=== PATIENT | female | born 1940 | race Caucasian/White ===

== ENCOUNTER 2020-09-11 13:23 | Emergency (ER) | payer MEDICARE, SELFPAY ==
[2020-09-11] VITALS (7 sets, daily range): BP systolic 128–175; BP diastolic 74–97; PULSE 95–112; RESP 20–26; TEMP 37.3–37.8; O2SAT 92–95; BMI 33.4
--- NOTE | 2020-09-11 14:04 | XR_ITS ---
WS: [id number] Portable AP upright chest, 09/11/2020 Clinical Data: covid Comparison: None. Findings: No nodules, masses or effusions are seen. The heart is enlarged. The pulmonary vascularity is not increased. No pneumothorax is seen. There is minimal bilateral lower lobe patchy peripheral op acity. XR/XR chest 1V portable [id number] Impression: 1. Bilateral lower lobe patchy opacities which could represent pneumonia. 2. Cardiomegaly.
[2020-09-11 14:31] LABS: Hematocrit 43.6 % (37.0-47.0); Hemoglobin 14.6 g/dL (11.5-15.3); Lymphocytes # 1.2 10^3/uL (0.8-4.8); Lymphocytes % 33.1 %; Mean Corpuscular HGB Conc 33.5 g/dL (30.0-36.0); Mean Corpuscular Hemoglobin 30.7 pg (28.0-34.0); Mean Corpuscular Volume 91.8 fL (81-99); Mean Platelet Volume 10.6 fL (7.4-10.4); Monocytes # 0.3 10^3/uL (0.2-0.9); Monocytes % 8.1 %; Neutrophils # 2.09 10^3/uL (1.8-7.7); Neutrophils % 58.2 %; Nucleated Red Blood Cells % 0 %; Platelet Count 92 10^3/cmm (130-400); Red Blood Count 4.75 10^6/uL (4.1-5.3); Red Cell Distribution Width 11.9 % (12.1-15.1); White Blood Count 3.6 10^3/uL (4.0-10.0)
[2020-09-11 14:44] LABS: Fibrinogen 413 mg/dL (174-498)
[2020-09-11 14:47] LABS: D Dimer 1.08 ug/mIFEU (0-0.59)
[2020-09-11 14:49] LABS: Lactic Sepsis W/Reflex 1.1 mmol/L (0.5-2.2)
[2020-09-11 15:07] LABS: SARS Covid-2 Antigen Positive (Negative)
[2020-09-11 15:15] LABS: Alanine Aminotransferase 18 U/L (0-33); Albumin Level 3.2 g/dL (3.5-5.2); Alkaline Phosphatase 48 IU/L (35-105); Anion Gap 16.8 (5-19); Aspartate Amino Transferase 28 U/L (0-32); Blood Urea Nitrogen 12 mg/dL (8-23); C Reactive Protein 23.2 mg/L (0.0-4.9); Calcium 7.7 mg/dL (8.5-10.5); Carbon Dioxide 20 mmol/L (22-29); Chloride 100 mmol/L (98-107); Globulin 2.7 g/dL (1.3-4.6); Glucose 100 mg/dL (65-115); Lactate Dehydrogenase 329 U/L (135-214); Osmolality Calculated 276 mOsm/kg (285-295); Potassium 3.8 mmol/L (3.5-5.1); Sodium 133 mmol/L (136-145); Total Bilirubin 0.7 mg/dL (0.15-1.2); Total Protein 5.9 g/dL (6.6-8.7)
[2020-09-11 15:20] LABS: Procalcitonin 0.05 ng/mL (0-0.5)
[2020-09-11 15:35] LABS: Ferritin 1074 ng/mL (15-150)
--- NOTE | 2020-09-11 15:42 | CTR_ITS ---
PROCEDURE INFORMATION: Exam: CTA Chest With Contrast Exam date and time: 09/11/2020 3:42 PM Age: 79 years old Clinical indication: Fever; Additional info: Covid +, elevated d-dimer TECHNIQUE: Imaging protocol: Computed tomographic angiography of the chest with contrast. 3D rendering (Not supervised by radiologist): MIP and/or 3D reconstructed images were created by the technologist. Radiation optimization: All CT scans at this facility use at least one of these dose optimization techniques: automated exposure control; mA and/or kV adjustment per patient size (includes targeted exams where dose is matched to clinical indication); or iterative reconstruction. Contrast material: OMNI 350; Contrast volume: 72 ml; Contrast route: INTRAVENOUS (IV); COMPARISON: CR XR chest 1V portable [id number] 09/11/2020 2:15 PM RADIATION DOSE METRICS: Total DLP (mGy-cm): 471.07 FINDINGS: Pulmonary arteries: Normal. No pulmonary emboli. Limited evaluation subsegmental branches due to respiratory motion artifact. Aorta: Unremarkable. No aortic aneurysm. No aortic dissection. Lungs: Peripheral ground-glass opacities throughout the lungs. Pleural spaces: Unremarkable. No pneumothorax. No pleural effusion. Heart: Mild cardiomegaly. Lymph nodes: Unremarkable. No enlarged lymph nodes. Bones/joints: Unremarkable. No acute fracture. Soft tissues: Unremarkable. CT/CT angio chest PE protcl [id number] IMPRESSION: 1. No evidence of pulmonary embolism. Limited evaluation of the subsegmental branches due to respiratory motion artifact. 2. Peripheral ground-glass opacities throughout the lungs consistent with COVID pneumonia. Radiation Dose CTDIVOL = (mGy): DLP = 471.07 (mGy-cm)
[2020-09-11] MEDS: iohexol 350 mg/mL 100 mL Btl IV (16:26)
--- NOTE | 2020-09-11 16:31 | W.ED.COVID ---
HPI - COVID General: Chief Complaint: COVID symptoms Stated Complaint: WEAKNESS/ FATIGUE/ FEVER/ COVID EXPOSURE Time Seen by Provider: 09/11/20 13:32 Source: patient and RN notes reviewed Mode of arrival: EMS Limitations: no limitations Triage information: Has fever, cough or shortness of breath. Exposure to COVID + person last 14 days History of Present Illness: HPI Narrative: Patient is a 79-year-old female who was exposed to COVID-19 and developed symptoms about 8 days ago. Symptoms include nausea, cough, diarrhea. She denies any fever but was febrile in the emergency department. She denies any shortness of breath. She feels very weak and has a very poor appetite. Because of the weakness and poor appetite she came to the emergency department to be evaluated. MD complaint: reported COVID exposure and has COVID symptoms Prior covid testing: no COVID 19 common symptoms: positive cough, body aches, loss of sense of smell and/or taste and diarrhea; negative fever(s), chills, productive cough, dyspnea, fatigue, headache(s), throat pain, nasal congestion, nausea or vomiting COVID 19 other sytmptoms: negative chest pain, pleuritic pain, requiring oxygen, requiring more oxygen, respiratory distress, cyanosis, lethargy, confusion, new neurological complaints or other concerning symptoms Onset (ago): day(s) (8) Severity: moderate Treatment prior to arrival: none COVID Results: SARS-CoV-2 Antigen (Rapid) Positive (Negative) H 09/11/20 14:45 09/11/20 Nasal/Oral Coronavirus 2019 PCR Pending 09/11/20 14:45 09/11/20 Review of Systems General: Reports: 10 or more systems reviewed and unremarkable except in HPI and below Const: Reports: body aches; Denies: fever(s), chills or fatigue ENMT: Denies: throat pain or nasal congestion Card: Denies: chest pain Resp: Denies: dyspnea or productive cough GI: Reports: diarrhea; Denies: nausea or vomiting Neuro: Denies: headache(s) or confusion Physical Exam Const: COMMON NORMALS: no acute distress, average body habitus, patient oriented x3, no limitations, healthy appearing, alert and well nourished HENMT: COMMON NORMALS: normocephalic, atraumatic and moist oral mucous membranes HEAD & SCALP: normocephalic and atraumatic Neck/C-Spine: COMMON NORMALS: no meningeal signs and no JVD Resp: COMMON NORMALS: normal respiratory effort, No retractions, No use of accessory muscles, clear to auscultation bilaterally and percussion normal AUSCULTATION: clear to auscultation bilaterally PERCUSSION: percussion normal Cardio: COMMON NORMALS: no JVD, regular rate, regular rhythm, S1 normal heart sound present, S2 normal heart sound present, No gallops present (Cardio), No clicks present (Cardio), No murmurs present (Cardio), No rub (Cardio) and Peripheral pulses 2+ throughout RATE: regular rate RHYTHM: regular rhythm HEART SOUNDS: S1 normal heart sound present and S2 normal heart sound present PERIPHERAL PULSES: Peripheral pulses 2+ throughout GI: COMMON NORMALS: Normal to inspection, nondistended, normoactive bowel sounds present, Soft to palpation, non-tender, No hepatosplenomegaly present, no masses and no bruits PALPATION: Yes Soft to palpation and Yes No hepatosplenomegaly present Extremity: COMMON NORMALS: normal to inspection, full ROM, capillary refill normal, no calf tenderness and no pedal edema Neuro: COMMON NORMALS: patient oriented x3 SENSORIUM/ORIENTATION: Yes alert MENINGEAL SIGNS: Yes no meningeal signs Skin: COMMON NORMALS: no rashes or lesions noted, no wounds, turgor normal, no jaundice, no petechiae and no mottling GENERAL SKIN EXAM: no rashes or lesions noted and turgor normal Course Vital Signs: Vital signs: Vital Signs Temperature 99.1 F 09/11/20 18:10 Pulse Rate 97 09/11/20 18:55 Respiratory Rate 22 H 09/11/20 18:55 Blood Pressure 175/91 09/11/20 18:55 Pulse Oximetry 92 09/11/20 18:55 MDM - COVID MDM Narrative: Medical decision making narrative: 79-year-old female patient who had a Covid exposure. She has been feeling unwell for about 8 days and so presented to the emergency department to be evaluated. Work-up in the emergency department shows that she was initially tachycardic on arrival and had a low-grade fever. She tested positive for COVID-19 in the emergency department today. She meets criteria for monoclonal antibodies as she was not requiring oxygen and she is 79 years old. She has been given monoclonal antibody infusion and discharged home with a pulse oximeter. She is to follow-up with her primary care provider. Lab Data: Labs: Lab Results 09/11/20 09/11/20 09/11/20 Range/Units 14:23 14:23 14:23 WBC 3.6 L (4.0-10.0) 10^3/ uL RBC 4.75 (4.1-5.3) 10^6/u L Hgb 14.6 (11.5-15.3) g/dL Hct 43.6 (37.0-47.0) % MCV 91.8 (81-99) fL MCH 30.7 (28.0-34.0) pg MCHC 33.5 (30.0-36.0) g/dL RDW 11.9 L (12.1-15.1) % Plt Count 92 L (130-400) 10^3/c mm MPV 10.6 H (7.4-10.4) fL Neut % (Auto) 58.2 % Lymph % (Auto) 33.1 % [place] % (Auto) 8.1 % Eos % (Auto) 0.0 % Baso % (Auto) 0.0 % Neut # (Auto) 2.09 (1.8-7.7) 10^3/u L Lymph # (Auto) 1.2 (0.8-4.8) 10^3/u L [place] # (Auto) 0.3 (0.2-0.9) 10^3/u L Eos # (Auto) 0.0 (0.0-0.8) 10^3/u L Baso # (Auto) 0.0 (0.0-0.1) 10^3/u L Nucleated RBC % (a uto) 0 % Nucleated RBCs # 0.0 /100WBC Fibrinogen 413 (174-498) mg/dL D-Dimer 1.08 H (0-0.59) ug/mIFE U Sodium 133 L (136-145) mmol/L Potassium 3.8 (3.5-5.1) mmol/L Chloride 100 (98-107) mmol/L Carbon Dioxide 20 L (22-29) mmol/L Anion Gap 16.8 (5-19) BUN 12 (8-23) mg/dL Creatinine 0.5 (0.5-0.9) mg/dL GFR Calculation Not Reportable Glucose 100 (65-115) mg/dL Calculated Osmolal ity 276 L (285-295) mOsm/k g Lactic Acid (0.5-2.2) mmol/L Calcium 7.7 L (8.5-10.5) mg/dL Ferritin 1074 H (15-150) ng/mL Total Bilirubin 0.7 (0.15-1.2) mg/dL AST 28 (0-32) U/L ALT 18 (0-33) U/L Alkaline Phosphata se 48 (35-105) IU/L Lactate Dehydrogen ase 329 H (135-214) U/L C-Reactive Protein 23.2 H (0.0-4.9) mg/L Total Protein 5.9 L (6.6-8.7) g/dL Albumin 3.2 L (3.5-5.2) g/dL Globulin 2.7 (1.3-4.6) g/dL Procalcitonin 0.05 (0-0.5) ng/mL SARS-CoV-2 Ag (Rap id) (Negative) 09/11/20 09/11/20 Range/Units 14:23 14:45 WBC (4.0-10.0) 10^3/ uL RBC (4.1-5.3) 10^6/u L Hgb (11.5-15.3) g/dL Hct (37.0-47.0) % MCV (81-99) fL MCH (28.0-34.0) pg MCHC (30.0-36.0) g/dL RDW (12.1-15.1) % Plt Count (130-400) 10^3/c mm MPV (7.4-10.4) fL Neut % (Auto) % Lymph % (Auto) % [place] % (Auto) % Eos % (Auto) % Baso % (Auto) % Neut # (Auto) (1.8-7.7) 10^3/u L Lymph # (Auto) (0.8-4.8) 10^3/u L [place] # (Auto) (0.2-0.9) 10^3/u L Eos # (Auto) (0.0-0.8) 10^3/u L Baso # (Auto) (0.0-0.1) 10^3/u L Nucleated RBC % (a uto) % Nucleated RBCs # /100WBC Fibrinogen (174-498) mg/dL D-Dimer (0-0.59) ug/mIFE U Sodium (136-145) mmol/L Potassium (3.5-5.1) mmol/L Chloride (98-107) mmol/L Carbon Dioxide (22-29) mmol/L Anion Gap (5-19) BUN (8-23) mg/dL Creatinine (0.5-0.9) mg/dL GFR Calculation Glucose (65-115) mg/dL Calculated Osmolal ity (285-295) mOsm/k g Lactic Acid 1.1 (0.5-2.2) mmol/L Calcium (8.5-10.5) mg/dL Ferritin (15-150) ng/mL Total Bilirubin (0.15-1.2) mg/dL AST (0-32) U/L ALT (0-33) U/L Alkaline Phosphata se (35-105) IU/L Lactate Dehydrogen ase (135-214) U/L C-Reactive Protein (0.0-4.9) mg/L Total Protein (6.6-8.7) g/dL Albumin (3.5-5.2) g/dL Globulin (1.3-4.6) g/dL Procalcitonin (0-0.5) ng/mL SARS-CoV-2 Ag (Rap id) Positive H (Negative) Imaging Data: CTA Chest: Attestation: I personally reviewed and interpreted this imaging study as follows: Radiologist's impression: [address] [id number] Scan ReportSigned Patient: Amari Rodriguez #: [id number]: 2Acct#:[id number]/Sex: 79 / FADM Date: 09/11/20Loc: ERRoom/Bed:Attending Dr: Ordering Provider/Ordering MD: Ximena Queen MD, [facility] [place] Date of Service: 09/11/20 Procedure(s): CT angio chest PE protcl [id number] Accession Number(s): [id number] Report Number: [id number] PROCEDURE INFORMATION: Exam: CTA Chest With Contrast Exam date and time: 09/11/2020 3:42 PM Age: 79 years old Clinical indication: Fever; Additional info: Covid +, elevated d-dimer TECHNIQUE: Imaging protocol: Computed tomographic angiography of the chest with contrast. 3D rendering (Not supervised by radiologist): MIP and/or 3D reconstructed images were created by the technologist. Radiation optimization: All CT scans at this facility use at least one of these dose optimization techniques: automated exposure control; mA and/or kV adjustment per patient size (includes targeted exams where dose is matched to clinical indication); or iterative reconstruction. Contrast material: OMNI 350; Contrast volume: 72 ml; Contrast route: INTRAVENOUS (IV); COMPARISON: CR XR chest 1V portable [id number] 09/11/2020 2:15 PM RADIATION DOSE METRICS: Total DLP (mGy-cm): 471.07 FINDINGS: Pulmonary arteries: Normal. No pulmonary emboli. Limited evaluation subsegmental branches due to respiratory motion artifact. Aorta: Unremarkable. No aortic aneurysm. No aortic dissection. Lungs: Peripheral ground-glass opacities throughout the lungs. Pleural spaces: Unremarkable. No pneumothorax. No pleural effusion. Heart: Mild cardiomegaly. Lymph nodes: Unremarkable. No enlarged lymph nodes. Bones/joints: Unremarkable. No acute fracture. Soft tissues: Unremarkable. CT/CT angio chest PE protcl [id number] IMPRESSION: 1. No evidence of pulmonary embolism. Limited evaluation of the subsegmental branches due to respiratory motion artifact. 2. Peripheral ground-glass opacities throughout the lungs consistent with COVID pneumonia. Radiation Dose CTDIVOL = (mGy): DLP = 471.07 (mGy-cm) Dictated By:Jun Rosalse DOSigned By:Jun Rosales DOSigned Date/Time:09/11/201646DD/ 44 CXR: Attestation: I personally reviewed and interpreted this imaging study as follows: Radiologist's impression: [address] [id number] ReportSigned Patient: Amari Rodriguez #: [id number]: 1941cct#:[id number]/Sex: 79 / FADM Date: 09/11/20Loc: ERRoom/Bed:Attending Dr: Ordering Provider/Ordering MD: Ximena Queen MD, [facility] [place] Date of Service: 09/11/20 Procedure(s): XR chest 1V portable [id number] Accession Number(s): [id number] Report Number: [id number] WS: [id number] Portable AP upright chest, 09/11/2020 Clinical Data: covid Comparison: None. Findings: No nodules, masses or effusions are seen. The heart is enlarged. The pulmonary vascularity is not increased. No pneumothorax is seen. There is minimal bilateral lower lobe patchy peripheral opacity. XR/XR chest 1V portable [id number] Impression: 1. Bilateral lower lobe patchy opacities which could represent pneumonia. 2. Cardiomegaly. Dictated By:Suzette Matos MDSigned By:Suzette Matos MDSigned Date/Time:09/11/207DD/ 1436 COVID Results: SARS-CoV-2 Antigen (Rapid) Positive (Negative) H 09/11/20 14:45 09/11/20 Nasal/Oral Coronavirus 2019 PCR Pending 09/11/20 14:45 09/11/20 Monoclonal Antibody Treatments Inclusion/Exclusion Criteria weight >/= 40 kg and + direct Sars-Cov-2 test less than 7-10 days ago age >/= 65 not requiring hospitalization, not requiring oxygen (if not chronically on oxygen) and no increase oxygen requirement (if chronically on oxygen) Patient education patient/family/caregiver received/reviewed fact sheet, Emergency Use Authorization/unapproved drug status discussed with patient/family/caregiver, alternatives to this treatment discussed with patient/family/caregiver, risks and benefits of medication reviewed with patient/family/caregiver, patient/family/caregiver given opportunity for questions, which were answered and patient consents to receiving Monoclonal Antibody Treatment Plan for treatment Meets criteria for Monoclonal Antibody infusion Ordering Monoclonal Antibody infusion for today Discharge Plan Discharge Patient Disposition: Home Clinical Impression: Pneumonia due to 2019 novel coronavirus Condition: Stable Prescriptions: No Action No Known Home Medications RF: 0 Discharge Orders: Discharge ED (Routine); Ordered 09/11/20 Ordered By: Ximena Queen Referrals: Dilip Dailey [Primary Care Provider] - 1-3 days Discharge Diet: Usual diet Discharge Activity: Increase activity as tolerated Patient Instructions: Viral Pneumonia (ED) Activity Restrictions/Additional Instructions: Return for any new or worsening symptoms. Follow-up with your primary care provider via telemedicine within 3 days. You need to self isolate for at least 10 days from symptom onset and at least 24 hours fever free. Check your oxygen levels with the pulse oximeter that was sent home with you, if your oxygen levels fall below 90% and stay below 90% please return for evaluation. You were given the monoclonal antibody infusion called Regeneron. This is to help prevent you from getting sick enough to be admitted to the hospital. Coding Level of Care Code ED Arc Welding Machine Operator for Graham Gutierres Exam Comprehensive
[2020-09-11] MEDS: sodium chloride 0.9% 1,000 ML 999 ML IV (17:06)
[2020-09-11] MEDS: ondansetron 2 mg/ML SDV 2 mL 4 MG IVP (17:06)
[2020-09-12 14:42] LABS: Coronavirus Test Green County Detected
--- NOTE | 2020-09-17 14:02 | DCPLANNER ---
assistant store manager trainee had message that patient received the monoclonal antibody infusion. assistant store manager trainee called to check on patient after receiving the infusion. assistant store manager trainee was unable to speak with patient at this time, a voicemail was left for patient to return rn case manager phone call.
== END 2020-09-11 18:55 | disposition home or self-care (01) ==
PROVIDERS: Emergency Provider Family Medicine; PCP Family Medicine
DX: U07.1 COVID-19 (principal); J12.82 Pneumonia due to coronavirus disease 2019
CPT/HCPCS: 36415; 71045; 71275; 80053; 82728; 83605; 83615; 84145; 85025; 85378; 85384; 86140; 87426; 87635; 96365; 96375; 99284; J2405; J7030; Q9967

== ENCOUNTER 2021-11-17 08:50 | Observation (INO) | payer MEDICARE, SELFPAY ==
[2021-11-17] VITALS (12 sets, daily range): BP systolic 148–233; BP diastolic 71–112; PULSE 75–105; RESP 15–18; TEMP 36.4–37; O2SAT 93–98; BMI 37.6
--- NOTE | 2021-11-17 09:02 | CT_ITS ---
WS: [id number] CT ANGIOGRAM CEREBRAL AND CAROTID ARTERIES HISTORY: TIA TECHNIQUE: CT angiogram is performed of the carotid and cerebral arteries. During arterial injection imaging is obtained from the skull vertex to the aortic arch in 1.25 mm imaging. Coronal and sagittal reformats are submitted. Additional multi planar reformats of the carotid and cerebral arteries are submitted, MIP imaging also reviewed. NASCET criteria utilized. [email or web address] at least one of these dose optimization techniques: automated exposure control; mA and/or kV adjust ment per patient size (includes targeted exams where dose is matched to clinical indication); or iter ative reconstruction. CONTRAST: Omnipaque 350; 95 mL IV. DLP: 943.54 mGy.cm COMPARISON: CT earlier the same day. Repeat noncontrast CT head is performed. It is now apparent there is a large acute infarct involving the LEFT occipital lobe and the posterior medial LEFT temporal lobe. There is sulcal effacement and l oss of the lange-white. No hemorrhage. Carotid Angiogram: Right carotid: Common carotid artery: Arises normally from the innominate artery. No significant plaque or stenosis. Internal carotid artery: Small amount of calcified plaque with no obstruction. External carotid artery: Patent. Left carotid: Common carotid artery: Arises normally from the aorta. No significant plaque or stenosis. Internal carotid artery: Calcified plaque at the bifurcation. No stenosis. External carotid artery: Patent. Right vertebral artery: Unremarkable. Left vertebral artery: Patent with scattered calcified plaque. Subclavian arteries: No stenosis or significant abnormality. Upper thorax: Normal. Thyroid gland: Normal. Osseous structures: Mild cervical spondylosis. CEREBRAL ANGIOGRAM: Intracranial vertebral arteries: Small caliber but patent distal RIGHT vertebral artery. Plaque in th e distal LEFT vertebral artery. Basilar artery: No significant stenosis or occlusion. No aneurysm. Intracranial Internal carotid arteries: Scattered plaque and mild atherosclerotic disease. No occlusi on. Middle cerebral arteries: Normal. Anterior cerebral arteries and ACOM: Normal. Posterior cerebral arteries and PCOM's: No occlusions. Symmetric appearance of the posterior cerebral arteries. The LEFT posterior communicating artery is small caliber. Dural venous sinuses are normally enhancing. Mastoid air cells: Normal. Paranasal sinuses: Normal. Calvarium: Normal. CT/CT angio headneck* [id number] IMPRESSION: 1. 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 Infarct has become much more apparent since the study earlier e same day. No hemorrhage. 2. No occlusion or thrombus in the posterior cerebral artery. 3. Mild atherosclerosis within the cervical and intracranial carotid artery. Notified Tyson Salazar DO at 11/17/2021 12:30 PM.
--- NOTE | 2021-11-17 09:07 | ED_ITS ---
HPI - Neuro Symptoms/Deficit General: Chief Complaint: Neuro Symptoms/Deficit Stated Complaint: TIA LIKE SYMPTOMS Time Seen by Provider: 11/17/21 08:52 Source: patient Mode of arrival: EMS History of Present Illness: 81-year-old female presents emergency room via EMS. Patient lives at home EMS was called around 7:40 AM patient had right- sided numbness difficult time speaking. By the time EMS arrived she was symptom-free. She describes the same symptoms to me including some visual deficits to the right side all of these have resolved. She is completely awake and alert with an NIH score of 0 she is extremely hypertensive. She has no known history of coronary artery disease or previous CVA. Time: 08:50 Last Observed Normal: 07:40 Location: speech, right face, left arm and right arm History of same: No Severity: mild Quality: weak and numb Relieving factors: time Exacerbating factors: none Context: sudden onset Associated symptoms: Reports tingling; Deny no associated symptoms, chest pain, cough, diaphoresis, fevers/chills, headache(s), anorexia, malaise, nausea, seizures, short of breath, syncope, vertigo, vomiting or weakness Treatments Prior to Arrival: none Review of Systems Const: Denies: fever(s), chills, fatigue, malaise or diaphoresis ENMT: Denies: throat pain, ear or mastoid pain, nasal discharge or nasal congestion Card: Denies: chest pain or syncope Resp: Denies: dyspnea, productive cough or non-productive cough GI: Denies: abdominal pain, nausea, vomiting, hematemesis or coffee ground emesis : Denies: flank pain, difficulty voiding, dysuria, urinary frequency or urinary urgency Skin/Breast: Denies: rash or pruritus Neuro: Denies: headache(s) or vertigo PFS ED PFSH: Medical History Acne rosacea COVID-19 (08/2020) 0 Hypertension Seasonal allergies Urinary incontinence Surgical History History of appendectomy Family History Brother Stroke Sister Stroke Father Stroke CAD (coronary artery disease) Mother Stroke Diabetes Social History Smoking and tobacco status: former smoker Quit status (tobacco): has quit using tobacco Former quit date comment: 50 years ago, smoked less than a year Alcohol intake: never Substance/Drug Use: never Lives independently: Yes NIH stroke score NIHSS: Level Of Consciousness - 1a: 0 Level Of Consciousness Questions - 1b: Both Correct Level Of Consciousness Commands - 1c: Both Correct Best Gaze - 2: Normal Visual Dill - 3: No Visual Loss Facial Palsy - 4: Normal Motor Arm Right - 5: No Drift Motor Arm Left - 5: No Drift Motor Leg Right - 6: No Drift Motor Leg Left - 6: No Drift Limb Ataxia - 7: Absent Sensory - 8: Normal Best Language - 9: No Aphasia Dysarthia - 10: Normal Extinction And Inattention - 11: 0 Score: Total Score: 0 Physical Exam Const: GENERAL APPEARANCE: cooperative and comfortable ORIENTATION/CONSCIOUSNESS: Yes awake, Yes oriented to person, Yes oriented to place and Yes oriented to time HENMT: COMMON NORMALS: normocephalic, atraumatic and hearing grossly normal bilaterally HEAD & SCALP: normocephalic and atraumatic Eye: COMMON NORMALS: Equal, round and reactive pupils present, EOMs intact bilaterally, conjunctivae normal and no scleral icterus GENERAL EYE: appearance normal, both eyes and all related structures VISUAL DILL: No peripheral vision loss and No central vision loss CONJUNCTIVA: Yes conjunctivae normal PUPIL: Yes Equal, round and reactive pupils present Resp: COMMON NORMALS: normal respiratory effort, No retractions, No use of accessory muscles and clear to auscultation bilaterally AUSCULTATION: clear t o auscultation bilaterally Cardio: COMMON NORMALS: regular rate, regular rhythm and No murmurs present (Cardio) RATE: regular rate RHYTHM: regular rhythm GI: COMMON NORMALS: Soft to palpation and No hepatosplenomegaly present AUSCULTATION: Yes normoactive bowel sounds PALPATION: Yes Soft to palpation, No Tenderness to palpation present (GI), No Guarding due to palpation present (GI) and Yes No hepatosplenomegaly present Extremity: COMMON NORMALS: normal to inspection, capillary refill normal, no clubbing, cyanosis or edema, no calf tenderness and no pedal edema Neuro: SENSORIUM/ORIENTATION: Yes oriented to person, Yes oriented to place and Yes oriented to time Skin: COMMON NORMALS: no rashes or lesions noted GENERAL SKIN EXAM: no rashes or lesions noted Course Vital Signs: Vital signs: Vital Signs Temperature 97.9 F 11/18/21 04:50 Pulse Rate 100 11/18/21 04:50 Respiratory Rate 18 11/18/21 04:50 Blood Pressure 146/83 11/18/21 04:50 Pulse Oximetry 96 11/18/21 04:50 Oxygen Delivery Me thod 11/18/21 04:50 MDM - Neuro Symptoms/Deficit Medical Decision Making Initial head CT negative. There is a period of time over trying to get a IV established and waiting on a creatinine and then went back to do her CTA head and neck a repeat CT head without contrast was done which showed evolution of the stroke in the left parietal occipital region consistent with her symptoms. I reexamined her after receiving a call from Dr. Chaudhry she still has a stroke score of essentially 0. She told Dr. Daiz later that she was having some difficulty with word finding but this was very subtle and subjective. On ident ifying objects in conversation she had no difficulty with words. Will admit for further work-up. Not a candidate for intervention at this point Medical Records I reviewed the patient's medical records. Lab Data I reviewed the patient's lab results. : 11/17/21 10:30 11/17/21 10:30 Radiology Impressions Head/Neck CTA 11/17/21 09:02 IMPRESSION: 1. 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 Infarct has become much more apparent since the study earlier the same day. No hemorrhage. 2. No occlusion or thrombus in the posterior cerebral artery. 3. Mild atherosclerosis within the cervical and intracranial carotid artery. Notified Tyson Salazar DO at 11/17/2021 12:[address] 11/17/21 10:27 IMPRESSION: 1. No acute intracranial hemorrhage or edema. 2. Mild atrophy and small vessel ischemic disease. Laboratory Results WBC 7.8 10^3/uL (4.0-10.0) 11/17/21 10:30 RBC 4.69 10^6/uL (4.1-5.3) 11/17/21 10:30 Hgb 14.6 g/dL (11.5-15.3) 11/17/21 10:30 Hct 44.8 % (37.0-47.0) 11/17/21 10:30 MCV 95.5 fl (81-99) 11/17/21 10:30 MCH 31.1 pg (28.0-34.0) 11/17/21 10:30 MCHC 32.6 g/dL (30.0-36.0) 11/17/21 10:30 RDW 12.6 % (12.1-15.1) 11/17/21 10:30 Plt Count 197 10^3/cmm (130-400) 11/17/21 10:30 MPV 10.5 fL (7.4-10.4) H 11/17/21 10:30 Neut % (Auto) 76.8 % 11/17/21 10:30 Lymph % (Auto) 17.2 % 11/17/21 10:30 [place] % (Auto) 5.0 % 11/17/21 10:30 Eos % (Auto) 0.6 % 11/17/21 10:30 Baso % (Auto) 0.0 % 11/17/21 10:30 Neut # (Auto) 6.00 10^3/uL (1.8-7.7) 11/17/21 10:30 Lymph # (Auto) 1.3 10^3/uL (0.8-4.8) 11/17/21 10:30 [place] # (Auto) 0.4 10^3/uL (0.2-0.9) 11/17/21 10:30 Eos # (Auto) 0.1 10^3/uL (0.0-0.8) 11/17/21 10:30 Baso # (Auto) 0.0 10^3/uL (0.0-0.1) 11/17/21 10:30 Nucleated RBC % (auto) 0 % 11/17/21 10:30 Nucleated RBCs # 0.0 /100WBC 11/17/21 10:30 PT 13.00 SECONDS (12.1-14.9) 11/17/21 10:30 INR 0.96 (0.8-1.2) 11/17/21 10:30 APTT 25.9 SECONDS (23.9-36.7) 11/17/21 10:30 Sodium 141 mmol/L (136-145) 11/17/21 10:30 Potassium 4.2 mmol/L (3.5-5.1) 11/17/21 10:30 Chloride 106 mmol/L (98-107) 11/17/21 10:30 Carbon Dioxide 25 mmol/L (22-29) 11/17/21 10:30 Anion Gap 14.2 (5-19) 11/17/21 10:30 BUN 13 mg/dL (8-23) 11/17/21 10:30 Creatinine 0.8 mg/dL (0.5-0.9) 11/17/21 10:30 GFR Calculation Not Reportable 11/17/21 10:30 Glucose 123 mg/dL (65-115) H 11/17/21 10:30 POC Glucose 112 mg/dL (70-110) H 11/17/21 10:22 Calculated Osmolality 293 mOsm/kg (285-295) 11/17/21 10:30 Calcium 9.0 mg/dL (8.5-10.5) 11/17/21 10:30 Total Bilirubin 1.0 mg/dL (0.15-1.2) 11/17/21 10:30 AST 18 U/L (0-32) 11/17/21 10:30 ALT 16 U/L (0-33) 11/17/21 10:30 Alkaline Phosphatase 80 U/L (35-105) 11/17/21 10:30 Total Protein 7.2 g/dL (6.6-8.7) 11/17/21 10:30 Albumin 4.2 g/dL (3.5-5.2) 11/17/21 10:30 Globulin 3.0 g/dL (1.3-4.6) 11/17/21 10:30 Urine Color Straw (Yellow) 11/17/21 13:55 Urine Appearance Clear (CLEAR) 11/17/21 13:55 Urine pH 5 (5-7) 11/17/21 13:55 Ur Specific Rogers 1.010 (1.005-1.030) 11/17/21 13:55 Urine Protein Neg (Negative) 11/17/21 13:55 Urine Glucose (UA) Norm (Normal) 11/17/21 13:55 Urine Ketones Negative (Negative) 11/17/21 13:55 Urine Blood 2+ (Negative) H 11/17/21 13:55 Urine Nitrate Negative (Negative) 11/17/21 13:55 Urine Bilirubin Neg (Negative) 11/17/21 13:55 Urine Urobilinogen Norm mg/dL (Negative) 11/17/21 13:55 Ur Leukocyte Esterase Negative (Negative) 11/17/21 13:55 Urine RBC 0-4 /hpf (0-2) H 11/17/21 13:55 Urine WBC 0-4 /hpf (0-5) H 11/17/21 13:55 Ur Squamous Epith Cells 15-25 /hpf (0-5) H 11/17/21 13:55 Amorphous Sediment Not Reportable 11/17/21 13:55 Urine Bacteria Trace /hpf (NONE) 11/17/21 13:55 Urine Opiates Screen Negative ng/mL (Negative) 11/17/21 13:55 Ur Barbiturates Screen Negative ng/mL (Negative) 11/17/21 13:55 Ur Phencyclidine Scrn Negative ng/mL (Negative) 11/17/21 13:55 Ur Amphetamines Screen Negative ng/mL (Negative) 11/17/21 13:55 U Benzodiazepines Scrn Negative ng/mL (Negative) 11/17/21 13:55 Urine Cocaine Screen Negative ng/mL (Negative) 11/17/21 13:55 U Marijuana (THC) Screen Negative ng/mL (Negative) 11/17/21 13:55 Discharge Plan Discharge Patient Disposition: Admitted As Inpatient Admit Provider: Julienne Guzman Clinical Impression: 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
--- NOTE | 2021-11-17 09:09 | ECG_ITS ---
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 Measurements Intervals [place] Rate: 73 P: 49 NC: 161 QRS: 26 QRSD: 94 T: 97 QT: 385 QTc: 425 Interpretive Statements SINUS RHYTHM NONSPECIFIC T-WAVE ABNORMALITY No previous ECG available for comparison Electronically Signed On 11-18-2021 0:07:18 CDT by Yimi Paz M.D. [id number]
--- NOTE | 2021-11-17 09:31 | PC.NURSE ---
Pt has clear bilateral breath sounds and non labored breathing. Pt skin is cool and dry. Pt is resting in bed with no c/o of pain. Call light within reach. Pt on continuous CM and spo2.
[2021-11-17 10:25] LABS: Glucose Point of Care 112 mg/dL (70-110)
[2021-11-17] MEDS: amlodipine 10 mg Tablet PO (10:26)
--- NOTE | 2021-11-17 10:27 | CT_ITS ---
WS: [id number] CT HEAD NONCONTRAST HISTORY: SYMPTOMS OF ACUTE STROKE TECHNIQUE: Contiguous axial imaging performed through the brain in 2.5 mm imaging. Bone and soft tiss ue windows. Sagittal and coronal reformats reviewed. All CT scans at [facility] use at least one of these dose optimization techniques: automated exposure control; mA and/or kV adjustment per pa tient size (includes targeted exams where dose is matched to clinical indication); or iterative recon struction. DLP: 998.78 mGy.cm COMPARISON: None available. No acute intracranial hemorrhage, midline shift or mass effect. Mild atrophy and ischemic disease. More focal area of decreased attenuation in the RIGHT anterior co olivier radiata. Ventricles: Normal size with no hydrocephalus. No inferior displacement of cerebellar tonsils. Paranasal sinuses: As visualized are clear. Mastoid air cells: Well pneumatized. Calvarium and scalp: Skull is intact with no soft tissue edema or swelling. CT/CT head wo con* [id number] IMPRESSION: 1. No acute intracranial hemorrhage or edema. 2. Mild atrophy and small vessel ischemic disease.
[2021-11-17] MEDS: labetalol 5 mg/mL SDV 20mL 10 MG IV (10:30)
[2021-11-17 10:39] LABS: Eosinophils # 0.1 10^3/uL (0.0-0.8); Eosinophils % 0.6 %; Hematocrit 44.8 % (37.0-47.0); Hemoglobin 14.6 g/dL (11.5-15.3); Lymphocytes # 1.3 10^3/uL (0.8-4.8); Lymphocytes % 17.2 %; Mean Corpuscular HGB Conc 32.6 g/dL (30.0-36.0); Mean Corpuscular Hemoglobin 31.1 pg (28.0-34.0); Mean Corpuscular Volume 95.5 fl (81-99); Mean Platelet Volume 10.5 fL (7.4-10.4); Monocytes # 0.4 10^3/uL (0.2-0.9); Neutrophils % 76.8 %; Nucleated Red Blood Cells % 0 %; Platelet Count 197 10^3/cmm (130-400); Red Blood Count 4.69 10^6/uL (4.1-5.3); Red Cell Distribution Width 12.6 % (12.1-15.1); White Blood Count 7.8 10^3/uL (4.0-10.0)
[2021-11-17 10:50] LABS: INR 0.96 (0.8-1.2); Partial Thromboplastin Time 25.9 SECONDS (23.9-36.7)
[2021-11-17 11:06] LABS: Alanine Aminotransferase 16 U/L (0-33); Albumin Level 4.2 g/dL (3.5-5.2); Alkaline Phosphatase 80 U/L (35-105); Anion Gap 14.2 (5-19); Aspartate Amino Transferase 18 U/L (0-32); Blood Urea Nitrogen 13 mg/dL (8-23); Carbon Dioxide 25 mmol/L (22-29); Chloride 106 mmol/L (98-107); Glucose 123 mg/dL (65-115); Osmolality Calculated 293 mOsm/kg (285-295); Potassium 4.2 mmol/L (3.5-5.1); Sodium 141 mmol/L (136-145); Total Protein 7.2 g/dL (6.6-8.7)
[2021-11-17] MEDS: iohexol 350 mg/mL 100 mL Btl IV (12:12)
--- NOTE | 2021-11-17 14:02 | PM.HP ---
Providers/Chief Complaint Admitting Physician: Julienne Guzman MD Primary Care Provider: Dr. Fraser Chief Complaint: TIA LIKE SYMPTOMS History of Present Illness Laura Rodriguez is a 81 year old female who presented to the emergency room with chief complaint of right-sided vision loss, right upper extremity numbness and some word finding difficulties. Symptoms were sudden in onset this morning. She initially awakened and felt like her normal self and then describes everything becoming haywire . The first thing that she noticed was her vision in her right eye was nonexistent . At the same time her right arm was numb and she was having difficulty using it the way she wanted to because of this. Denies weakness just it did not feel right. Right leg was normal. She attempted to call 911 and had difficulty using the phone. She was able to speak to the kapok machine operator but had trouble recalling some words that she knew she should know. EMS arrived 15 to 20 minutes later. By the time they came to her aid, her symptoms had begun to resolve. On arrival to the emergency room her symptoms had dissipated. Initial NIH score was 0. Initial CT of the head without contrast did not show any acute abnormalities. A subsequent CT of the head demonstrated acute left occipital and posterior medial temporal lobe infarction. CTA of the head neck did not show any occlusion or thrombus in the posterior cerebral artery. Mild atherosclerosis was noted within the cervical and intracranial carotid artery. Patient has no prior history of stroke. She does not smoke. She has strong family history of strokes and parents, brothers and sisters. She states that she has outlived all of them. She does have a longstanding history of elevated blood pressure typically in the 150s systolic but is never been on any medication for it. Blood pressures on arrival to the emergency room today 233/112. She received a dose of amlodipine and labetalol and current pressures are 160s over 80s. No known history of diabetes or hyperlipidemia. At the time of my evaluation patient's NIH stroke score remains 0 however she feels like she is having difficulty remembering names in a way that is not normal for her. She is being admitted for further evaluation, monitoring and treatment as indicated. Mrs. Rodriguez saw her primary care provider, Dr. Fraser last week for annual exam. At the time her blood pressure was 160 systolic which is higher for her than usual. A follow-up appointment was arranged for next Wednesday for recheck of her blood pressure. Only other acute issue was significant sinus symptoms. She has known seasonal allergies. Review of Systems Const: Denies: fever(s) or chills Eyes: Reports: change in vision (Transient vision loss right eye) ENMT: Reports: nasal congestion (Sinus drainage) Card: Reports: swelling of feet/ankles and other (Fitbit occasionally shows low heart rate during sleep); Denies: chest pain, irregular heart rhythm or lightheadedness Resp: Reports: other (Intermittent cough related to allergies ); Denies: dyspnea GI: Denies: nausea, vomiting, diarrhea, constipation or hematochezia : Reports: urinary incontinence (on oxybutinin) Musc: Denies: extremity pain or extremity swelling Skin/Breast: Reports: lesions (Rosacea) Neuro: Reports: numbness in extremities (right upper extremity, transiently), lack of coordination (right upper extremity transiently) and difficulty communicating thoughts (some word finding difficulty for recall of names, slower mentation); Denies: headache(s), weakness in extremities, difficulty walking (able to walk to bathroom in ED without assitance) or Slurred speech present Psych: Denies: anxiety or depression Magen/Lymph: Denies: easy bleeding All/Imm: Reports: seasonal rhinorrhea Medications/Allergies Home Medications Medication Instructions Recorded Confirmed Last Taken Type oxybutynin chloride 10 mg 10 mg PO BEDTIME 11/17/21 11/17/21 11/16/21 21:30 History tablet,extended release 24 hr Allergies Allergy/AdvReac Type Severity Reaction Status Date / Time No Known Allergies Allergy Unverified 11/17/21 14:15 PFSH Acute PFSH: Medical History (Updated 11/17/21 @ 15:08 by Julienne Guzman MD) Acne rosacea COVID-19 (08/2020) 0 Hypertension Seasonal allergies Urinary incontinence Surgical History (Updated 11/17/21 @ 14:12 by Julienne Guzman MD) History of appendectomy Family History (Updated 11/17/21 @ 14:16 by Julienne Guzman MD) Brother Stroke Sister Stroke Father Stroke CAD (coronary artery disease) Mother Stroke Diabetes Social History (Updated 11/17/21 @ 14:17 by Julienne Guzman MD) Smoking and tobacco status: former smoker Quit status (tobacco): has quit using tobacco Former quit date comment: 50 years ago, smoked less than a year Alcohol intake: never Substance/Drug Use: never Lives independently: Yes Vitals/I&O/Wt Last Vital Signs Temp 97.6 F 11/17/21 09:22 Pulse 75 11/17/21 09:22 Resp 18 11/17/21 09:22 BP 164/82 11/17/21 13:15 Pulse Ox 98 11/17/21 09:22 O2 Del Method 11/17/21 09:22 Weight last 48 hrs Weight 81.647 kg Physical Exam Narrative: Constitutional: Awake and alert, cooperative able to provide history HEENT: Normocephalic, atraumatic, pupils are equally reactive, extraocular movements are intact, no visual field deficits appreciated on repeat examination, tongue protrusion midline, uvula midline, moist mucous membranes, dental work noted Neck: Supple, no bruits Respiratory: Clear to auscultation bilaterally Cardiovascular: Regular rate and rhythm without any murmurs noted Abdomen: Soft, nontender, positive bowel sounds : Deferred Extremities: Trace ankle edema, no painful or swollen joints, no calf tenderness Skin: Erythema nasolabial area on face, skin is dry, no areas of bruising appreciated Neuro: Speech clear, does seem to struggle with name recall such as for her friend who has power of wash plant operator and her primary care provider but otherwise no dysarthria or dysphasia appreciated, no drift, strength 5 out of 5 x 4, left toe is equivocal, right toe is upgoing, other DTRs are equal, no abnormal movements Psych: Normal affect Data : 11/17/21 10:30 11/17/21 10:30 Other Labs: Radiology Impressions Head/Neck CTA 11/17/21 09:02 IMPRESSION: 1. 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 Infarct has become much more apparent since the study earlier the same day. No hemorrhage. 2. No occlusion or thrombus in the posterior cerebral artery. 3. Mild atherosclerosis within the cervical and intracranial carotid artery. Notified Tyson Salazar DO at 11/17/2021 12:[address] 11/17/21 10:27 IMPRESSION: 1. No acute intracranial hemorrhage or edema. 2. Mild atrophy and small vessel ischemic disease. Laboratory Results WBC 7.8 10^3/uL (4.0-10.0) 11/17/21 10:30 RBC 4.69 10^6/uL (4.1-5.3) 11/17/21 10:30 Hgb 14.6 g/dL (11.5-15.3) 11/17/21 10:30 Hct 44.8 % (37.0-47.0) 11/17/21 10:30 MCV 95.5 fl (81-99) 11/17/21 10:30 MCH 31.1 pg (28.0-34.0) 11/17/21 10:30 MCHC 32.6 g/dL (30.0-36.0) 11/17/21 10:30 RDW 12.6 % (12.1-15.1) 11/17/21 10:30 Plt Count 197 10^3/cmm (130-400) 11/17/21 10:30 MPV 10.5 fL (7.4-10.4) H 11/17/21 10:30 Neut % (Auto) 76.8 % 11/17/21 10:30 Lymph % (Auto) 17.2 % 11/17/21 10:30 [place] % (Auto) 5.0 % 11/17/21 10:30 Eos % (Auto) 0.6 % 11/17/21 10:30 Baso % (Auto) 0.0 % 11/17/21 10:30 Neut # (Auto) 6.00 10^3/uL (1.8-7.7) 11/17/21 10:30 Lymph # (Auto) 1.3 10^3/uL (0.8-4.8) 11/17/21 10:30 [place] # (Auto) 0.4 10^3/uL (0.2-0.9) 11/17/21 10:30 Eos # (Auto) 0.1 10^3/uL (0.0-0.8) 11/17/21 10:30 Baso # (Auto) 0.0 10^3/uL (0.0-0.1) 11/17/21 10:30 Nucleated RBC % (auto) 0 % 11/17/21 10:30 Nucleated RBCs # 0.0 /100WBC 11/17/21 10:30 PT 13.00 SECONDS (12.1-14.9) 11/17/21 10:30 INR 0.96 (0.8-1.2) 11/17/21 10:30 APTT 25.9 SECONDS (23.9-36.7) 11/17/21 10:30 Sodium 141 mmol/L (136-145) 11/17/21 10:30 Potassium 4.2 mmol/L (3.5-5.1) 11/17/21 10:30 Chloride 106 mmol/L (98-107) 11/17/21 10:30 Carbon Dioxide 25 mmol/L (22-29) 11/17/21 10:30 Anion Gap 14.2 (5-19) 11/17/21 10:30 BUN 13 mg/dL (8-23) 11/17/21 10:30 Creatinine 0.8 mg/dL (0.5-0.9) 11/17/21 10:30 GFR Calculation Not Reportable 11/17/21 10:30 Glucose 123 mg/dL (65-115) H 11/17/21 10:30 POC Glucose 112 mg/dL (70-110) H 11/17/21 10:22 Calculated Osmolality 293 mOsm/kg (285-295) 11/17/21 10:30 Calcium 9.0 mg/dL (8.5-10.5) 11/17/21 10:30 Total Bilirubin 1.0 mg/dL (0.15-1.2) 11/17/21 10:30 AST 18 U/L (0-32) 11/17/21 10:30 ALT 16 U/L (0-33) 11/17/21 10:30 Alkaline Phosphatase 80 U/L (35-105) 11/17/21 10:30 Total Protein 7.2 g/dL (6.6-8.7) 11/17/21 10:30 Albumin 4.2 g/dL (3.5-5.2) 11/17/21 10:30 Globulin 3.0 g/dL (1.3-4.6) 11/17/21 10:30 Urine Color Straw (Yellow) 11/17/21 13:55 Urine Appearance Clear (CLEAR) 11/17/21 13:55 Urine pH 5 (5-7) 11/17/21 13:55 Ur Specific [place] 1.010 (1.005-1.030) 11/17/21 13:55 Urine Protein Neg (Negative) 11/17/21 13:55 Urine Glucose (UA) Norm (Normal) 11/17/21 13:55 Urine Ketones Negative (Negative) 11/17/21 13:55 Urine Blood 2+ (Negative) H 11/17/21 13:55 Urine Nitrate Negative (Negative) 11/17/21 13:55 Urine Bilirubin Neg (Negative) 11/17/21 13:55 Urine Urobilinogen Norm mg/dL (Negative) 11/17/21 13:55 Ur Leukocyte Esterase Negative (Negative) 11/17/21 13:55 Urine RBC 0-4 /hpf (0-2) H 11/17/21 13:55 Urine WBC 0-4 /hpf (0-5) H 11/17/21 13:55 Ur Squamous Epith Cells 15-25 /hpf (0-5) H 11/17/21 13:55 Amorphous Sediment Not Reportable 11/17/21 13:55 Urine Bacteria Trace /hpf (NONE) 11/17/21 13:55 Urine Opiates Screen Negative ng/mL (Negative) 11/17/21 13:55 Ur Barbiturates Screen Negative ng/mL (Negative) 11/17/21 13:55 Ur Phencyclidine Scrn Negative ng/mL (Negative) 11/17/21 13:55 Ur Amphetamines Screen Negative ng/mL (Negative) 11/17/21 13:55 U Benzodiazepines Scrn Negative ng/mL (Negative) 11/17/21 13:55 Urine Cocaine Screen Negative ng/mL (Negative) 11/17/21 13:55 U Marijuana (THC) Screen Negative ng/mL (Negative) 11/17/21 13:55 Attestation for Other Data: I personally reviewed and interpreted the following: (Reviewed records from PCP visit last week) Other data: Laboratory data from patient's primary care provider dated 11/12/2021 shows the following: Hemoglobin A1c 5.4 Total cholesterol 182 HDL 59 Calculated LDL 104 Triglycerides 95 Cholesterol/HDL ratio 3.1 Total non-HDL cholesterol 123 TSH 1.30 A&P Assessment and plan (1) 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 NIH score at presentation to the ED and upon admission remained 0. Symptoms lasted approximately half an hour before resolving. Very strong family history of strokes in multiple first-degree relatives. CTA of the head demonstrated evolving acute stroke in the left CHARGER OPERATOR HELPER distribution involving left occipital and posterior medial temporal lobe without any occlusion or thrombus noted in the posterior cerebral artery. The posterior communicating artery was noted to be small in caliber. (2) Hypertension: Reports chronic blood pressure typically 150 systolic for many years off and on but has not required treatment previously. Pressures today significantly elevated in the setting of an acute stroke. Was seen by primary care provider last week and systolic pressures noted to be in the 160s. Plan had been for recheck of blood pressures next week. Qualifiers: Hypertension type: primary hypertension Qualified Code(s): I10 - Essential (primary) hypertension (3) Borderline hyperglycemia: Blood sugar 112-123 upon presentation without a history of diabetes (4) BMI 37.0-37.9, adult: (5) Urinary incontinence: Chronically on oxybutynin (6) Seasonal allergies: Currently with acute sinus symptoms Plan Observation admission Serial neuro exams with NIH score Telemetry monitoring for arrhythmias Check echocardiogram PT, OT and speech therapy evaluations Initiate statin therapy Initiate antiplatelet therapy Permissive hypertension currently but will need to address antihypertensive agent upon discharge to optimize blood pressure control to decrease recurrent stroke risk DVT prophylaxis Stroke education Had hemoglobin A1c and fasting lipid panel as well as TSH performed last week on November 12 by primary care provider so these have not been reordered, actual results have been scanned into the system and values from lab review documented above Holding oxybutynin currently secondary to degree of hypertension and presenting symptoms Flonase for allergy symptoms Supportive care otherwise Plans as described above reviewed with patient and she was given an opportunity to ask questions Currently anticipate discharge home with outpatient follow-up. Does not currently appear to need therapy but will monitor clinical course and therapy evaluations. Patient already has appointment with her primary care provider on November 26 for follow-up of elevated blood pressures at her annual visit last week. Allow natural (AND) as per discussion with patient Should Ms Rodriguez not be able to make her own decisions she does have a DURABLE POWER OF BIOMASS TECHNICIAN for healthcare her close friend Omar Denisha. Omar can be reached at [phone]. Attestations Medical Necessity Statement*: Currently anticipate a stay less than 2 midnights in a patient presenting with posterior circulation stroke symptoms that have essentially resolved but evidence of evolving stroke on imaging along with significant hypertension at presentation. Plans are as noted above. At significant risk of recurrent stroke with persistent symptoms leading to significant debility. 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 NIH stroke score NIHSS Level Of Consciousness - 1a: 0 Level Of Consciousness Questions - 1b: Both Correct Level Of Consciousness Commands - 1c: Both Correct Best Gaze - 2: Normal Visual Berg - 3: No Visual Loss Facial Palsy - 4: Normal Motor Arm Right - 5: No Drift Motor Arm Left - 5: No Drift Motor Leg Right - 6: No Drift Motor Leg Left - 6: No Drift Limb Ataxia - 7: Absent Sensory - 8: Normal Best Language - 9: No Aphasia Dysarthia - 10: Normal Extinction And Inattention - 11: 0 Score Total Score: 0
[2021-11-17 14:20] LABS: Urine Appearance Clear (CLEAR); Urine Color Straw (Yellow); pH Urine 5 (5-7)
[2021-11-17 14:21] LABS: Add Urine Culture? No; Add Urine Microscopic? YES; Bacteria Urine TRACE /hpf; Bilirubin Urine Neg (Negative); Blood Urine 2+ (Negative); Glucose Urine UA Norm (Normal); Ketones Urine Negative (Negative); Leukocyte Esterase Urine Negative (Negative); Nitrate Urine Negative (Negative); Protein Urine Neg (Negative); RBC Urine 0-4 /hpf (0-2); Squamous Epithelial Cell Urine 15-25 /hpf (0-5); Urobilinogen Urine Norm (Negative); WBC Urine 0-4 /hpf (0-5)
[2021-11-17 14:22] LABS: Amphetamines Screen Urine Negative (Negative); Barbiturates Screen Urine Negative (Negative); Benzodiazepines Screen Urine Negative (Negative); Cocaine Screen Urine Negative (Negative); Opiate Screen Urine Negative (Negative); PCP Screen Urine Negative (Negative); THC Screen Urine Negative (Negative)
--- NOTE | 2021-11-17 16:35 | USCV_ITS ---
Laura Rodriguez Age: 81 Gender: F : 1940 Exam Date: 11/17/2021 18:16 Ordering Phys: Julienne Guzman MD Technologist: VICK Exam Location: [facility] [place] Indication: Posterior CVA, RT vision loss, now resolved, RT hemiparesis BP: 153 / 71 HR: 109 Rhythm: Atrial fibrillation Technical Quality: Adequate MEASUREMENTS (Male / Female) Normal Values 2D ECHO LV Diastolic Diameter PLAX 3.6 cm 4.2 - 5.9 / 3.9 - 5.3 cm LV Systolic Diameter PLAX 2.5 cm IVS Diastolic Thickness 1.8 cm 0.6 - 1.0 / 0.6 - 0.9 cm IVS Systolic Thickness 2.4 cm LVPW Diastolic Thickness 1.3 cm 0.6 - 1.0 / 0.6 - 0.9 cm LVPW Systolic Thickness 1.6 cm LVOT Diameter 1.8 cm LV Ejection Fraction 2D Teich 62.1 % LV Ejection Fraction MOD 2C 71.6 % LV Ejection Fraction 2C AL 72.1 % LA Diameter 4.4 cm LA Width 4.2 cm LA Height 5.6 cm RA Width 3.1 cm RA Height 4.2 cm Aorta at Sinotubular Diameter 2.5 cm IVC Diameter 1.5 cm M-MODE Aortic Annulus Diameter 2.2 cm LA Ao Ratio MM 2.0 MV E Point Septal Separation 0.2 cm DOPPLER AV Peak Velocity 188.0 cm/s LVOT Peak Velocity 111.0 cm/s AV Area Cont Eq vti 1.6 cm squared AV Area Cont Eq pk 1.4 cm squared MV Area PHT 3.8 cm squared Mitral E to A Ratio 2.5 MV E' Velocity 69.4 cm/s Mitral E to MV E' Ratio 11.1 Mitral E to LV E' Lateral Ratio 10.1 Mitral E to LV E' Septal Ratio 12.5 TR Peak Velocity 238.2 cm/s TR Peak Gradient 22.7 mmHg Right Atrial Pressure 10.0 mmHg Pulmonary Artery Systolic Pressu 32.7 mmHg PV Peak Velocity 118.0 cm/s RV Acceleration Time 0.1 s RV Ejection Time 0.3 s RV AcT/ET 0.3 FINDINGS Left Ventricle Normal left ventricular size, systolic function and wall thickness, with no regional wall motion abnormalities. Left ventricular ejection fraction is estimated at 65 %. Rhythm precludes evaluation of diastolic function. Right Ventricle Normal right ventricular size and systolic function. Right ventricular systolic pressure 32.7 mmHg. Right Atrium Normal right atrial size. Left Atrium Mildly increased left atrial size. Mitral Valve Mild mitral annular calcification. Thickened mitral valve. No mitral valve stenosis. Trace to mild mitral valve regurgitation. Aortic Valve Structurally normal trileaflet aortic valve. No aortic valve stenosis. Mild aortic valve regurgitation. Tricuspid Valve Structurally normal tricuspid valve. No tricuspid valve stenosis. Trace to mild tricuspid valve regurgitation. Pulmonic Valve Structurally normal pulmonic valve. No pulmonary valve stenosis. Trace pulmonary valve regurgitation. Pericardium No pericardial effusion. Aorta Normal size aortic root and proximal ascending aorta. IVC Normal IVC dimension with >50% respiratory change of the inferior vena cava. CONCLUSIONS 1. Normal left ventricular size, systolic function and wall thickness, with no regional wall motion abnormalities. Left ventricular ejection fraction is estimated at 65 %. 2. Mild aortic valve regurgitation. 3. No prior similar studies to compare. Katie An MD (Electronically Signed) Final Date: 17 November 2021 20:48 S
[2021-11-17] MEDS: fluticasone nasal spray 16gm Btl 1 SPRAY NASAL (17:47)
[2021-11-17] MEDS: atorvastatin 40 mg Tablet 20 MG PO (21:04)
[2021-11-17] MEDS: acetaminophen 500 mg Tablet 650 MG PO (22:22)
[2021-11-18] VITALS (8 sets, daily range): BP systolic 128–164; BP diastolic 64–83; PULSE 78–106; RESP 16–18; TEMP 36.6–37; O2SAT 96–98
[2021-11-18] MEDS: enoxaparin 40 mg/0.4 mL Syringe SUBCUT (10:12)
[2021-11-18] MEDS: aspirin 81 mg EC Tablet PO (10:13)
--- NOTE | 2021-11-18 11:00 | PM.DCS ---
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: Status: Acute (2) Hypertension: Status: Chronic Qualifiers: Hypertension type: primary hypertension Qualified Code(s): I10 - Essential (primary) hypertension (3) Borderline hyperglycemia: Status: Acute (4) BMI 37.0-37.9, adult: Status: Chronic (5) Urinary incontinence: Status: Chronic (6) Seasonal allergies: Status: Chronic Reason for Visit Reason for Visit: TIA LIKE SYMPTOMS Hospital Course Hospital Course 81-year-old female who presented to the hospital with chief complaint of vision changes and numbness of right side, she was diagnosed with evolving stroke CTA head and neck showed acute left occipital and posterior medial temporal lobe infarct however no active clot was found she remained in sinus rhythm JERICHO profile negative, A1c not significantly high, she remained hemodynamically stable, afebrile, blood pressure is around 128/33 mmHg, she is doing well on room air, NIH 0 at the time of my evaluation she will go home on aspirin, Plavix 21-day regimen and then she will continue aspirin along with statins. I will discharge her on event monitor. Patient does not have typical cerebellar signs. Echo unremarkable. Please see H&P for further details Physical Exam Narrative: NIH 0 S1, S2 Negative cerebellar signs No active signs of stroke Awake and alert No visual field defect Awake and alert S1, S2 Doing well on room air Discharge Data Studies Completed and Pending Completed Studies During Hospitalization Category Date Time Status CT angio headneck* [id number] Stat Cat Scan 11/17/21 09:[address] head wo con* [id number] Stat Cat Scan 11/17/21 10:27 Completed CV. echo complete* [id number] Routine Ultrasound 11/17/21 16:35 Completed Pending at discharge Category Date Time Status JERICHO Profile Custom [[facility] JERICHO Profile] Routine Lab 11/18/21 08:12 Received PROTEIN C, ACTIVITY Routine Lab 11/18/21 08:12 Received PROTEIN S, ACTIVITY Routine Lab 11/18/21 08:12 Received Radiology Impressions Head/Neck CTA 11/17/21 09:02 IMPRESSION: 1. 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 Infarct has become much more apparent since the study earlier the same day. No hemorrhage. 2. No occlusion or thrombus in the posterior cerebral artery. 3. Mild atherosclerosis within the cervical and intracranial carotid artery. Notified Tyson Salazar DO at 11/17/2021 12:[address] 11/17/21 10:27 IMPRESSION: 1. No acute intracranial hemorrhage or edema. 2. Mild atrophy and small vessel ischemic disease. Laboratory Results WBC 7.8 10^3/uL (4.0-10.0) 11/17/21 10:30 RBC 4.69 10^6/uL (4.1-5.3) 11/17/21 10:30 Hgb 14.6 g/dL (11.5-15.3) 11/17/21 10:30 Hct 44.8 % (37.0-47.0) 11/17/21 10:30 MCV 95.5 fl (81-99) 11/17/21 10:30 MCH 31.1 pg (28.0-34.0) 11/17/21 10:30 MCHC 32.6 g/dL (30.0-36.0) 11/17/21 10:30 RDW 12.6 % (12.1-15.1) 11/17/21 10:30 Plt Count 197 10^3/cmm (130-400) 11/17/21 10:30 MPV 10.5 fL (7.4-10.4) H 11/17/21 10:30 Neut % (Auto) 76.8 % 11/17/21 10:30 Lymph % (Auto) 17.2 % 11/17/21 10:30 [place] % (Auto) 5.0 % 11/17/21 10:30 Eos % (Auto) 0.6 % 11/17/21 10:30 Baso % (Auto) 0.0 % 11/17/21 10:30 Neut # (Auto) 6.00 10^3/uL (1.8-7.7) 11/17/21 10:30 Lymph # (Auto) 1.3 10^3/uL (0.8-4.8) 11/17/21 10:30 [place] # (Auto) 0.4 10^3/uL (0.2-0.9) 11/17/21 10:30 Eos # (Auto) 0.1 10^3/uL (0.0-0.8) 11/17/21 10:30 Baso # (Auto) 0.0 10^3/uL (0.0-0.1) 11/17/21 10:30 Nucleated RBC % (auto) 0 % 11/17/21 10:30 Nucleated RBCs # 0.0 /100WBC 11/17/21 10:30 PT 13.00 SECONDS (12.1-14.9) 11/17/21 10:30 INR 0.96 (0.8-1.2) 11/17/21 10:30 APTT 25.9 SECONDS (23.9-36.7) 11/17/21 10:30 Sodium 141 mmol/L (136-145) 11/17/21 10:30 Potassium 4.2 mmol/L (3.5-5.1) 11/17/21 10:30 Chloride 106 mmol/L (98-107) 11/17/21 10:30 Carbon Dioxide 25 mmol/L (22-29) 11/17/21 10:30 Anion Gap 14.2 (5-19) 11/17/21 10:30 BUN 13 mg/dL (8-23) 11/17/21 10:30 Creatinine 0.8 mg/dL (0.5-0.9) 11/17/21 10:30 GFR Calculation Not Reportable 11/17/21 10:30 Glucose 123 mg/dL (65-115) H 11/17/21 10:30 POC Glucose 112 mg/dL (70-110) H 11/17/21 10:22 Calculated Osmolality 293 mOsm/kg (285-295) 11/17/21 10:30 Calcium 9.0 mg/dL (8.5-10.5) 11/17/21 10:30 Total Bilirubin 1.0 mg/dL (0.15-1.2) 11/17/21 10:30 AST 18 U/L (0-32) 11/17/21 10:30 ALT 16 U/L (0-33) 11/17/21 10:30 Alkaline Phosphatase 80 U/L (35-105) 11/17/21 10:30 Total Protein 7.2 g/dL (6.6-8.7) 11/17/21 10:30 Albumin 4.2 g/dL (3.5-5.2) 11/17/21 10:30 Globulin 3.0 g/dL (1.3-4.6) 11/17/21 10:30 Urine Color Straw (Yellow) 11/17/21 13:55 Urine Appearance Clear (CLEAR) 11/17/21 13:55 Urine pH 5 (5-7) 11/17/21 13:55 Ur Specific [place] 1.010 (1.005-1.030) 11/17/21 13:55 Urine Protein Neg (Negative) 11/17/21 13:55 Urine Glucose (UA) Norm (Normal) 11/17/21 13:55 Urine Ketones Negative (Negative) 11/17/21 13:55 Urine Blood 2+ (Negative) H 11/17/21 13:55 Urine Nitrate Negative (Negative) 11/17/21 13:55 Urine Bilirubin Neg (Negative) 11/17/21 13:55 Urine Urobilinogen Norm mg/dL (Negative) 11/17/21 13:55 Ur Leukocyte Esterase Negative (Negative) 11/17/21 13:55 Urine RBC 0-4 /hpf (0-2) H 11/17/21 13:55 Urine WBC 0-4 /hpf (0-5) H 11/17/21 13:55 Ur Squamous Epith Cells 15-25 /hpf (0-5) H 11/17/21 13:55 Amorphous Sediment Not Reportable 11/17/21 13:55 Urine Bacteria Trace /hpf (NONE) 11/17/21 13:55 Urine Opiates Screen Negative ng/mL (Negative) 11/17/21 13:55 Ur Barbiturates Screen Negative ng/mL (Negative) 11/17/21 13:55 Ur Phencyclidine Scrn Negative ng/mL (Negative) 11/17/21 13:55 Ur Amphetamines Screen Negative ng/mL (Negative) 11/17/21 13:55 U Benzodiazepines Scrn Negative ng/mL (Negative) 11/17/21 13:55 Urine Cocaine Screen Negative ng/mL (Negative) 11/17/21 13:55 U Marijuana (THC) Screen Negative ng/mL (Negative) 11/17/21 13:55 Vitals Last Vital Signs Temp 98.6 F 11/18/21 09:30 Pulse 100 11/18/21 09:30 Resp 16 11/18/21 09:30 BP 128/83 11/18/21 09:30 Pulse Ox 97 11/18/21 09:30 O2 Del Method 11/18/21 04:50 Discharge Plan Discharge Patient Disposition: Home Condition: Stable Prescriptions: New aspirin 81 mg Tablet,Delayed Release (Dr/Ec) 81 mg PO DAILY Qty: 90 3RF atorvastatin 40 mg Tablet 40 mg PO BEDTIME Qty: 90 3RF clopidogrel [Plavix] 75 mg tablet 75 mg PO DAILY Qty: 20 0RF Continued oxybutynin chloride 10 mg tablet extended release 24 hr 10 mg PO BEDTIME Discharge Orders: Discharge Order (Routine); Ordered 11/18/21 Ordered By: Silvina Hernandes Other Ambulatory Orders: MCT/Event Monitor 21 Days (Routine) Timeframe: 3 Weeks Facility: [facility] - Location: Radiology Ordered By: Silvina Hernandes Referrals: Jessica Fraser DO [Referring] - 1 week Discharge Diet: Cardiac Discharge Activity: Increase activity as tolerated Patient Instructions: Opioid Safety Discharge Attestations Time Spent in Discharge Care*: less than 30 min Quality Metrics Clinical Quality Measures [ No reported AMI, CVA or VTE this stay] Coding Level of Care Code Acute Chg FW DC note Diagnoses 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
--- NOTE | 2021-11-18 11:22 | PC.OT ---
OT EVALUATION ORDERS RECEIVED. PATIENT IS SCHEDULED FOR DISCHARGE; NO OT AT THIS TIME.
--- NOTE | 2021-11-18 14:15 | PC.NURSE ---
went over discharge follow up appointments, new medications and activity with patient. Verbalized understanding.
[2021-11-20 15:17] LABS: Anti-Double Strand DNA AB <1 IU/mL; Jo-1 Antibody <1.0 NEG AI (<1.0 NEG); SM/RNP Antibodies <1.0 NEG AI (<1.0 NEG); SS-B/LA IGG <1.0 NEG AI (<1.0 NEG); Scleroderma Ab(Scl-70) Ab <1.0 NEG AI (<1.0 NEG); Ss-A/Ro Igg <1.0 NEG AI (<1.0 NEG)
[2021-11-21 03:46] LABS: PROTEIN C, ACTIVITY 115 % normal (70-180)
[2021-11-21 22:13] LABS: PROTEIN S, ACTIVITY 86 % normal (60-140)
== END 2021-11-18 14:15 | disposition home or self-care (01) ==
LOC: ER 09:41 → MEDSURG 15:49
PROVIDERS: Admitting Provider Hospitalist; Emergency Provider Family Medicine; PCP Family Medicine; Visit Provider Internal Medicine
DX: I63.532 Cerebral infarction due to unspecified occlusion or stenosis of left posterior cerebral artery (principal); I10 Essential (primary) hypertension; R73.9 Hyperglycemia, unspecified; Z68.37 Body mass index [BMI] 37.0-37.9, adult; R32 Unspecified urinary incontinence; J30.2 Other seasonal allergic rhinitis; Z87.891 Personal history of nicotine dependence
CPT/HCPCS: 36415; 36416; 70450; 70496; 70498; 80053; 80306; 81001; 82962; 85025; 85303; 85306; 85610; 85730; 86225; 86235; 92523; 92610; 93005; 93306; 96372; 96374; 99285; G0378; J1650; J3490; Q9967

== ENCOUNTER 2021-12-13 06:33 | Inpatient (IN) | payer MEDICARE, SELFPAY ==
[2021-12-13] VITALS (34 sets, daily range): BP systolic 92–178; BP diastolic 51–95; PULSE 56–94; RESP 11–29; TEMP 36.6; O2SAT 91–100
--- NOTE | 2021-12-13 06:42 | ECG_ITS ---
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 Measurements Intervals [place] Rate: 94 P: 49 IN: 163 QRS: 49 QRSD: 89 T: 47 QT: 351 QTc: 440 Interpretive Statements SINUS RHYTHM WITH OCCASIONAL VENTRICULAR PREMATURE COMPLEXES POSSIBLE LEFT ATRIAL ENLARGEMENT [-0.1mV P-WAVE IN V1/V2] MARKED ST ELEVATION, CONSIDER ANTERIOR INJURY ACUTE [place] Compared to ECG 11/17/2021 09:09:41 Ventricular premature complex(es) now present ST (T wave) deviation now present Myocardial infarct finding now present T-wave abnormality no longer present Electronically Signed On 12-15-2021 23:04:57 CDT by Katie An M.D. [email or web address]
--- NOTE | 2021-12-13 06:44 | XRR_ITS ---
PROCEDURE INFORMATION: Exam: XR Chest Exam date and time: 12/13/2021 6:48 AM Age: 81 years old Clinical indication: Pain; Left-sided; Additional info: Cp TECHNIQUE: Imaging protocol: Radiologic exam of the chest. Views: 1 view. COMPARISON: CR XR chest 1V portable [id number] 09/11/2020 2:15 PM FINDINGS: Lungs: There are normal lung volumes. Age-related interstitial prominence is seen in the lungs. No confluent interstitial or airspace opacities in the lungs. Pleural spaces: There are no pleural effusions or pneumothorax. Heart/Mediastinum: The heart size is normal. The mediastinal contour is normal. The trachea is in the midline. Bones/joints: No acute abnormalities. Small degenerative osteophytes are seen throughout the thoracic spine. Soft tissues: Multiple external densities are seen overlying the chest, limiting assessment. XR/XR chest 1V portable [id number] IMPRESSION: No confluent infiltrates in the lungs.
--- NOTE | 2021-12-13 06:47 | XACV_ITS ---
Exam Room: .[facility] Ht: 147 cm Wt: 90 kg BSA: 1.97 m2 Gender: Female : 1940 Exam Priority: Routine Procedure(s): Procedure Description: Diagnostic procedure Procedure Description: PCI procedure Procedure Description: Drug Eluting Coronary Stent Procedure Description: PTCA Procedure Description: Coronary Angiography Diagnostic Cath Status: Emergency Diagnostic Findings * Recent posterior cerebral artery stroke on aspirin and Plavix. Presented with arm discomfort and diaphoresis. Anterior wall MT by EKG. * Angiography reveals a 30% ostial left main stenosis. The LAD is occluded in the midportion at the takeoff of a diagonal branch. There is a codominant system with a very large circumflex. No significant lesions in the circumflex or right coronary arteries. * Patient has super morbid obesity with difficult access. There was a very thready pulse in the right wrist. I was able to enter the artery twice with good blood return however was never able to pass the wire. The procedure was completed from the right common femoral artery. This was also a very difficult artery to locate. Time was lost trying to get access. PCI Status: Emergency PCI LVEF Assessed: Yes PCI Indication: PCI for STEMI (Stable, >12 hrs from Sx onset) Interventional Findings * The LAD is occluded in the midportion. This underwent balloon angioplasty followed by stenting with a good angiographic result. Decision for PCI with Surgical Consult: No PCI for Multi-vessel Disease: No Conclusions 1. Anterior wall MT with occluded LAD status post stenting. Dyskinetic apex with ejection fraction 40%. Otherwise essentially normal coronary arteries. Codominant system. Mitral annular calcification. Recommendations * Medical therapy. Interventional RX Recommendation: PCI w/o planned CABG Diagnostic RX Recommendation: PCI w/o planned CABG Anticoagulation: Heparin LV EDP: 18 mmHg Ventriculography Ejection Fraction: 40.0 % Left Ventriculography Findings: * Mild mitral annular calcification. Pressures Phase:Rest AO : 110 / 56 ( 79 ) @ 8:56:00 AM 96 / 66 ( 80 ) @ 9:09:00 AM 122 / 69 ( 94 ) @ 9:14:00 AM 141 / 57 ( 91 ) @ 9:25:00 AM 141 / 52 ( 90 ) @ 9:25:00 AM LV : 155 / -14 / 18 @ 9:23:00 AM 153 / -13 / 18 @ 9:24:00 AM 150 / -12 / 21 @ 9:25:00 AM Valves Phase:DefaultPhase AV : 6.0 @ 8:33:33 AM 6.0 @ 8:33:33 AM AV Mean Gradient: 11.0 @ 8:33:33 AM Clinical Evaluation EBL: 5mL-10mL Procedural Details Admit Source: Emergency department. Pre-Procedure Time Out. Identified patient by full name and date of as verbalized by the patient/guarantor. Does the consent match the physician's order: N/A Emergent; Informed Consent not obtained due to time critical life threat. Accurate & Complete Informed Consent: N/A Emergent; Informed Consent not obtained due to time critical life threat. Inpatient/Outpatient History & Physical on Chart: N/A Emergent; Informed Consent not obtained due to time critical life threat. If H&P is completed, is and addenduem needed: N/A Emergent; Informed Consent not obtained due to time critical life threat; If yes, is the addendum complete: N/A Emergent; Informed Consent not obtained due to time critical life threat. Visualize and Verify Site with Patient/Guarantor: N/A. Relevant Radiology Images available: N/A. Pre-op teaching completed and patient verbalized understanding. The risks, benefits, and alternatives of sedation and/or procedure were discussed by physician. The patient agrees to continue. Procedure started. [facility] Clinical Fraility Score: 3: Managing Well. Gift Officer Indications: Worsening Angina. Chest Pain Symptom Assessment: Typical Angina Symptoms. Correct patient, site and procedure confirmed by cath team. Current diagnosis: STEMI. PERRLA. 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 Lungs clear x 5 lobes. IV Site on Arrival: 20 gauge in the right anticubital. IV Site on Arrival: 20 gauge in the left anticubital. IV Fluids: 0.9% NaCl at KVO. 0 mL infused prior to radiographer cardiac catheterization. Pre Procedural Pulses: right radial was 3+. Pre Procedural Pulses: bilateral dorsalis pedis was 2+. Oxygen started at 2liters/min via nasal canula. right groin was prepped with chloroprep then draped in the usual sterile fashion. right radial was prepped with chloroprep then draped in the usual sterile fashion. Physician notified. Baseline sample Acquired. HR: 75 BPM. Physician arrived. Physician scrubbed in. Immediate Pre-Procedure Time Out. Correct Patient: Yes; Correct Procedure: Yes; Correct Site: Yes; Correct Patient Position: Yes; Correct Supplies: Yes; Dried Flammable Prep: Yes; Blood Products Available: N/A;. Lidocaine 1% infiltrated to the right radial. Delay in access due to difficult anatomy. Radial access aborted and attempting R femoral access at this time. Lidocaine 1% infiltrated to the right groin. Arterial access obtained. Equipment: 6F - Femoral. 6 [place] XB 3 guide catheter was inserted over the wire. Multiple views taken of left coronary artery. [place] guidewire was advanced through the guide catheter. [place] wire removed. [place] guidewire was advanced through the guide catheter to lesion in the mid LAD. Balloon inserted to lesion in the mid LAD. Inflation number : 1 A AB TREK 2.50X12 RX BALLOON was prepped and advanced across the Mid LAD , then inflated to 8 CHACORTA for 0:20 seconds. Results checked. Inflation number: 2 The AB TREK 2.50X12 RX BALLOON was reinflated across the Mid LAD, to 8 CHACORTA for 0:25 seconds. Results checked. PCI Indication : PCI for STEMI (Stable, >12 hrs from Sx onset). Balloon out. Stent inserted to lesion in the mid LAD. Inflation Number : 3 A MASTER Ferro LYNNETTE 2.5X15 MICHELLE -Lot Number#[id number] Exp 04/01/2024 was prepped and advanced across the Mid LAD. The stent was deployed at 14 CHACORTA for 0:30 seconds. Results checked. Stent balloon out over wire. Results checked. Guide catheter and wire out. A 6 [place] JR4 catheter in over wire. Multiple views taken of right coronary artery. Catheter out. A 6 [place] Angled Pig catheter in over wire. LV gram performed in PAN @ 10 mL/second for a total of 30 mL. EDP Sample taken: LV 155/-15,18; HR: 90 BPM; SpO2: 100%. EDP Sample taken: LV 153/-14,18; HR: 80 BPM; SpO2: 100%. Pullback taken: LV 150/-13,21; AO 141/57(91); Mean: 11mmHg, Peak to Peak: 6mmHg, SEP: 26sec/min; HR: 87 BPM; SpO2: 100%. Catheter out. A Suture was successful obtaining hemostatsis at the Right Femoral artery insertion site. Physician scrubbed out. Sheath(s) sutured into position with 2-0 silk and sterile 4x4's and Op-site applied over the site. No oozing or signs and symptoms of hematoma noted. Post Procedure: Pulses reassessed and unchanged. PERRLA. 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 No VTE prophylaxis required. Medication's Wasted: Other = Versed 2 mg. Medication's Wasted: Heparin = 4000u. Medication's Wasted: Nitro = 50 mg. Total IV fluids: 48 mL. Medication's Wasted: Lidocaine 1% = 2 mL. Post-op diagnosis: STEMI. Complications: none. Estimated blood loss: 5mL-10mL. Responsiveness - Normal response to verbal stimuli; alert and oriented, PERRLA. Airway - Unaffected, no intervention required; spontaneous ventilation. Circulation: W/N/L, pulses unchanged. Nausea/Vomiting: No. Procedure completed. Patient transferred by bed to ICU. Vital chart was stopped. Access Site Site: Right Femoral artery Sheath Size: 6 Fr Hemostasis Method: Suture Hemostasis Success: Successful Procedure Medications Start: 7:17 AM Stop: 7:17 AM Medication: Versed Amount: 1 mg Route: I.V. Start: 7:17 AM Stop: 7:17 AM Medication: Fentanyl Amount: 50 mcg Route: I.V. Start: 7:25 AM Stop: 7:25 AM Medication: Versed Amount: 1 mg Route: I.V. Start: 7:29 AM Stop: 7:29 AM Medication: Fentanyl Amount: 25 mcg Route: I.V. Start: 7:36 AM Stop: 7:36 AM Medication: Versed Amount: 1 mg Route: I.V. Start: 8:00 AM Stop: 8:00 AM Medication: Fentanyl Amount: 25 mcg Route: I.V. I, the attending physician, have reviewed and verified all procedure medications. Yes, all medications given per verbal order Report Signatures Amended by Dr. Glynn Castañeda MD on 12/13/2021 08:[address] Glynn Castañeda MD on 12/13/2021 08:[address] Glynn Castañeda MD on 12/13/2021 08:47 AM
[2021-12-13] MEDS: ondansetron 2 mg/ML SDV 2 mL 4 MG IVP (06:55)
[2021-12-13] MEDS: heparin 5,000 unit/mL INJ 1 mL 4000 UNIT IVP (06:55)
--- NOTE | 2021-12-13 06:55 | ED_ITS ---
HPI - Chest Pain General: Chief Complaint: Chest Pain Stated Complaint: STEMI ALERT Time Seen by Provider: 12/13/21 06:33 Source: patient History of Present Illness: 81-year-old female presents emergency room via EMS with complaints of left shoulder and left arm pain that began when she woke up this morning around 520. She had just gotten up was doing her usual routine nothing exertional and began having left arm and shoulder pain that was quite severe she was diaphoretic and nauseous with it as well she called 911 on arrival there EKG showed ST elevation AR patient was given 324 of aspirin and nitro she is also given total of 4 oh tablets of sublingual nitro she is arm and chest pain-free on arrival no shortness of breath. EMS had called in ahead of time and activated a STEMI alert Dr. Castañeda arrived shortly after patient presented to the emergency room initial EKG done in the ER on arrival shows ST elevation AR in V1 through 5. Patient was seen approximately 1 month ago by myself in the emergency room presented with questionable symptoms for stroke. Her NIH was 0 upon arrival however when we sent her for a CTA of the head and neck the CT without contrast was inadvertently repeated and she actually showed evolution of the left occipital area stroke. This was consistent with the symptoms she had complained about prior to arrival she was admitted and evaluated including an echocardiogram and started on Plavix which she has continued to take since then. Patient is not diabetic and is a non-smoker. MD complaint: chest pain Onset (ago): hour(s) Timing of current episode: episodic and now resolved Prior episodes: No Onset: during rest Pain radiation: left arm and left shoulder Severity: severe Quality: aching Relieving factors: nitroglycerin Exacerbating factors: nothing Associated symptoms: Reports diaphoresis, dyspnea and nausea; Deny abdominal pain, fever(s), leg edema, palpitations, sense of impending doom, syncope or vomiting Treatment prior to arrival: aspirin, nitroglycerin and oxygen Review of Systems Const: Reports: diaphoresis; Denies: fever(s), chills, fatigue or malaise ENMT: Denies: throat pain, ear or mastoid pain, nasal discharge or nasal congestion Card: Reports: chest pain; Denies: palpitations, irregular heart rhythm or syncope Resp: Reports: dyspnea GI: Reports: nausea; Denies: abdominal pain or vomiting : Denies: flank pain, difficulty voiding, dysuria, urinary frequency or urinary urgency Musc: Reports: extremity pain Skin/Breast: Denies: rash or pruritus PFSH ED PFSH: Medical History Acne rosacea 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 BMI 37.0-37.9, adult Borderline hyperglycemia COVID-19 (08/2020) 0 Hypertension Seasonal allergies Urinary incontinence Surgical History History of appendectomy Family History Brother Stroke Sister Stroke Father Stroke CAD (coronary artery disease) Mother Stroke Diabetes Social History Smoking and tobacco status: former smoker Quit status (tobacco): has quit using tobacco Former quit date comment: 50 years ago, smoked less than a year Alcohol intake: never Lives independently: Yes Physical Exam Const: COMMON NORMALS: no acute distress GENERAL APPEARANCE: cooperative and comfortable ORIENTATION/CONSCIOUSNESS: Yes awake, Yes oriented to person, Yes oriented to place and Yes oriented to time HENMT: COMMON NORMALS: normocephalic, atraumatic and hearing grossly normal bilaterally HEAD & SCALP: normocephalic and atraumatic Resp: COMMON NORMALS: normal respiratory effort, No retractions, No use of accessory muscles and clear to auscultation bilaterally AUSCULTATION: clear to auscultation bilaterally Cardio: COMMON NORMALS: regular rate, regular rhythm and No murmurs present (Cardio) RATE: regular rate RHYTHM: regular rhythm GI: COMMON NORMALS: Soft to palpation and No hepatosplenomegaly present AUSCULTATION: Yes normoactive bowel sounds PALPATION: Yes Soft to palpation, No Tenderness to palpation present (GI), No Guarding due to palpation present (GI) and Yes No hepatosplenomegaly present Extremity: COMMON NORMALS: normal to inspection, capillary refill normal, no clubbing, cyanosis or edema, no calf tenderness and no pedal edema Neuro: SENSORIUM/ORIENTATION: Yes oriented to person, Yes oriented to place and Yes oriented to time Skin: COMMON NORMALS: no rashes or lesions noted GENERAL SKIN EXAM: no rashes or lesions noted Course Vital Signs: Vital signs: Vital Signs Temperature 97.9 F 12/13/21 06:38 Pulse Rate 94 12/13/21 06:38 Respiratory Rate 25 H 12/13/21 06:38 Blood Pressure 178/92 12/13/21 06:38 Pulse Oximetry 97 12/13/21 06:38 Oxygen Delivery Me thod 12/13/21 06:38 MDM - Chest Pain Medical Decision Making ST elevation AR on EKG. Her symptoms are relieved by nitro she is pain-free at this time. We have given her heparin. She is already on regular doses of Plavix. Initial STEMI work-up and labs has been started. Dr. Castañeda is in the department and has seen the patient. Patient is being transported to the [facility] at the time of this dictation. Medical Records I reviewed the patient's medical records. Lab Data I reviewed the patient's lab results. Discharge Plan Discharge Patient Disposition: Admitted As Inpatient Clinical Impression: ST elevation myocardial infarction (STEMI), Impaired glucose tolerance, Obesity, History of CVA (cerebrovascular accident) Condition: Stable Prescriptions: No Action oxybutynin chloride 10 mg tablet extended release 24 hr 10 mg PO BEDTIME atorvastatin 40 mg Tablet 40 mg PO BEDTIME Qty: 90 3RF aspirin 81 mg Tablet,Delayed Release (Dr/Ec) 81 mg PO DAILY Qty: 90 3RF Plavix 75 mg tablet 75 mg PO DAILY Qty: 20 0RF Referrals: Dilip Dailey [Primary Care Provider] - Coding Level of Care Code ED Supervisor [employer] for Graham Gutierres
--- NOTE | 2021-12-13 07:02 | P.HP_ITS ---
Providers/Chief Complaint Admitting Physician: matthew Primary Care Provider: Dilip Dailey Chief Complaint: STEMI ALERT History of Present Illness Laura Rodriguez is a 81 year old female with no prior history of heart disease who woke up at 540 this morning with pain in her left arm and diaphoresis. She called 911. Her EKG shows ST segment elevation from leads V1 through V6. She was given aspirin and sublingual nitroglycerin in route. She has been given Nitropaste, Zofran and 4000 units of heparin. Upon my arrival she is still mildly diaphoretic, not short of breath and her arm pain is gone. Her EKG here shows ST segment elevation in leads V1 through V4. She is super morbidly obese. 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 She was sent home on aspirin and Plavix. She has no history of other vascular disease. She does have a history of hypertension and hyperglycemia. She previously had COVID. An echocardiogram when she was in the hospital for the stroke was normal. Review of Systems Narrative: Review of systems is negative Medications/Allergies Home Medications Medication Instructions Recorded Confirmed Last Taken Type oxybutynin chloride 10 mg 10 mg PO BEDTIME 11/17/21 11/17/21 11/16/21 21:30 History tablet,extended release 24 hr aspirin 81 mg tablet,delayed 81 mg PO DAILY #90 tabs 11/18/21 Unknown Rx release atorvastatin 40 mg tablet 40 mg PO BEDTIME #90 tabs 11/18/21 Unknown Rx clopidogrel 75 mg tablet (Plavix) 75 mg PO DAILY #20 tabs 11/18/21 Unknown Rx Allergies Allergy/AdvReac Type Severity Reaction Status Date / Time No Known Allergies Allergy Unverified 11/17/21 14:15 PFSH Acute PFSH: Medical History Acne rosacea 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 BMI 37.0-37.9, adult Borderline hyperglycemia COVID-19 (08/2020) 0 Hypertension Seasonal allergies Urinary incontinence Surgical History History of appendectomy Family History Brother Stroke Sister Stroke Father Stroke CAD (coronary artery disease) Mother Stroke Diabetes Social History Smoking and tobacco status: former smoker Quit status (tobacco): has quit using tobacco Former quit date comment: 50 years ago, smoked less than a year Alcohol intake: never Lives independently: Yes Vitals/I&O/Wt Last Vital Signs Temp 97.9 F 12/13/21 06:38 Pulse 94 12/13/21 06:38 Resp 25 H 12/13/21 06:38 BP 178/92 12/13/21 06:38 Pulse Ox 97 12/13/21 06:38 O2 Del Method 12/13/21 06:38 Physical Exam Narrative: GENERAL: Super morbid obesity but in no distress HEENT: Exam within normal limits. NECK: Supple without jugular vein distention. The carotid upstroke is normal without bruits. BACK: Exam normal. LUNGS: Clear. HEART: Regular rate and rhythm. ABDOMEN: Benign without organomegaly or tenderness. EXTREMITIES: No edema. NEUROLOGIC: Exam normal. SKIN: Unremarkable. Data : 12/13/21 06:50 12/13/21 06:50 A&P Assessment and plan (1) ST elevation myocardial infarction (STEMI): (2) Impaired glucose tolerance: (3) Obesity: (4) History of CVA (cerebrovascular accident): Plan Cardiac catheterization laboratory now. We will make an attempt to do this via the radial artery since her obesity will create a difficult situation in the groin. All labs are pending. Attestations Medical Necessity Statement*: Inpatient management of an acute myocardial infarction. Coding Level of Care Code New Pt Acute Television Specialist for Graham Fwd Patient Type New History Detailed Exam Detailed Medical Decision Making Moderate Complexity Diagnoses ST elevation myocardial infarction (STEMI) I21.3 Impaired glucose tolerance R73.02 Obesity E66.9 History of CVA (cerebrovascular accident) Z86.73
[2021-12-13 07:03] LABS: Basophils % 0.1 %; Eosinophils # 0.1 10^3/uL (0.0-0.8); Eosinophils % 1.9 %; Hematocrit 43.3 % (37.0-47.0); Hemoglobin 14.1 g/dL (11.5-15.3); Lymphocytes # 1.9 10^3/uL (0.8-4.8); Lymphocytes % 27.8 %; Mean Corpuscular HGB Conc 32.6 g/dL (30.0-36.0); Mean Corpuscular Hemoglobin 31.4 pg (28.0-34.0); Mean Corpuscular Volume 96.4 fl (81-99); Mean Platelet Volume 10.2 fL (7.4-10.4); Monocytes # 0.4 10^3/uL (0.2-0.9); Monocytes % 5.8 %; Neutrophils # 4.28 10^3/uL (1.8-7.7); Neutrophils % 64.1 %; Nucleated Red Blood Cells % 0 %; Platelet Count 182 10^3/cmm (130-400); Red Blood Count 4.49 10^6/uL (4.1-5.3); Red Cell Distribution Width 12.7 % (12.1-15.1); White Blood Count 6.7 10^3/uL (4.0-10.0)
--- NOTE | 2021-12-13 07:05 | PC.NURSE ---
cardiac cath technician personnel at bedside . patient transported to brick and blocker aid labor @ [id number]
[2021-12-13 07:21] LABS: INR 0.97 (0.8-1.2)
[2021-12-13 07:32] LABS: Troponin(5th) Baseline 61 ng/L (0-10)
[2021-12-13 07:42] LABS: Alanine Aminotransferase 25 U/L (0-33); Albumin Level 3.9 g/dL (3.5-5.2); Alkaline Phosphatase 78 U/L (35-105); Aspartate Amino Transferase 28 U/L (0-32); Blood Urea Nitrogen 13 mg/dL (8-23); Calcium 8.9 mg/dL (8.5-10.5); Carbon Dioxide 24 mmol/L (22-29); Chloride 106 mmol/L (98-107); Globulin 2.4 g/dL (1.3-4.6); Glucose 142 mg/dL (65-115); NT Pro B Type Natriuretic Pept 297 pg/mL (0-450); Osmolality Calculated 295 mOsm/kg (285-295); Sodium 141 mmol/L (136-145); Total Bilirubin 1.1 mg/dL (0.15-1.2); Total Protein 6.3 g/dL (6.6-8.7)
[2021-12-13 07:53] LABS: Anion Gap 15.3 (5-19); Potassium 4.3 mmol/L (3.5-5.1)
--- NOTE | 2021-12-13 08:44 | ECG_ITS ---
[facility] Test Date: 2021-12-13 Pat Name: Laura Rodriguez Department: Room: ICU08 Gender: Female Purchasing Clerk: : 1940 Requested By: Acosta Munguia Order Number: [id number] Valentino MD: Katie An M.D. Measurements Intervals [place] Rate: 84 P: 57 [place]: 192 QRS: 86 QRSD: 76 T: 126 QT: 373 QTc: 443 Interpretive Statements SINUS RHYTHM WITH FREQUENT ECTOPIC PREMATURE COMPLEXES POSSIBLE LEFT ATRIAL ENLARGEMENT [-0.1mV P-WAVE IN V1/V2] LOW QRS VOLTAGE IN PRECORDIAL LEADS [QRS DEFLECTION < 1.0 mV IN CHEST LEADS] ANTEROSEPTAL MYOCARDIAL INFARCTION , OF INDETERMINATE AGE [40+ ms Q WAVE IN V1-V4] Compared to ECG 12/13/2021 06:42:11 Low QRS voltage now present Ventricular premature complex(es) no longer present ST (T wave) deviation no longer present Myocardial infarct finding still present Electronically Signed On 12-15-2021 23:16:46 CDT by Katie An M.D. [id number]
[2021-12-13 09:33] LABS: Troponin 5 2HR 1166 ng/L (0-10)
[2021-12-13 09:34] LABS: Troponin 5 2HR Delta 1105 ABS# (0-10)
[2021-12-13] MEDS: sodium chloride 0.9% 1,000 ML 100 ML IV (09:35)
[2021-12-13] MEDS: metoprolol tartrate 50 mg Tablet PO ×2 (09:41→17:20)
[2021-12-13 12:01] LABS: Partial Thromboplastin Time 34.2 SECONDS (23.9-36.7)
[2021-12-13] MEDS: fentaNYL 50 mcg/mL INJ 2mL IVP (12:12)
[2021-12-13 12:27] LABS: Troponin 5 6HR 3258 ng/L (0-10); Troponin 5 6HR Delta 3197 ng/L (0-12)
--- NOTE | 2021-12-13 13:09 | ECG_ITS ---
[facility] Test Date: 2021-12-13 Pat Name: Laura Rodriguez Department: Room: ICU08 Gender: Female Web Analyst: : 1940 Requested By: Acosta Munguia Order Number: [id number] Valentino MD: Katie An M.D. Measurements Intervals [place] Rate: 62 P: 62 [place]: 195 QRS: 107 QRSD: 72 T: 128 QT: 449 QTc: 459 Interpretive Statements SINUS RHYTHM RIGHT AXIS DEVIATION [QRS AXIS > 100] ANTEROSEPTAL MYOCARDIAL INFARCTION , OF INDETERMINATE AGE Compared to ECG 12/13/2021 09:30:57 Right-axis deviation now present ST (T wave) deviation now present Myocardial infarct finding still present Electronically Signed On 12-15-2021 23:15:59 CDT by Katie An M.D. [id number]
[2021-12-13] MEDS: clopidogrel 75 mg Tablet PO (16:10)
[2021-12-14] VITALS (16 sets, daily range): BP systolic 134–169; BP diastolic 68–85; PULSE 64–80; RESP 13–25; TEMP 36.6; O2SAT 94–97
--- NOTE | 2021-12-14 08:46 | P.DS_ITS ---
Discharge Providers Date of Admission: 12/13/21 08:58 Date of Discharge: December 14, 2021 Attending Provider at Admission: Glynn Castañeda MD Attending Provider at Discharge: Glynn Castañeda MD Primary Care Provider: Dilip Dailey Diagnoses at Discharge Discharge Diagnosis (1) ST elevation myocardial infarction (STEMI): Status: Acute (2) Impaired glucose tolerance: Status: Acute (3) Obesity: Status: Acute (4) History of CVA (cerebrovascular accident): Status: Acute (5) Statin intolerance: Status: Acute Reason for Visit Reason for Visit: STEMI ALERT Brief History: Patient arrived at the emergency room early yesterday morning after awakening at 5:40 AM with rather severe left arm pain and diaphoresis. She called 911. [address] segment elevation in the anterior precordial leads. She was taken to the catheterization laboratory from the emergency room. Hospital Course Hospital Course Patient is a super morbidly obese woman. I made several attempts to access the radial artery on the right. I was able to enter the artery twice with good blood flow but was never able to pass a wire. The groin access proved to be equally difficult. The obesity made finding the artery challenging. This delayed the procedure significantly. Patient's mid left anterior descending was completely occluded. It was opened with a balloon and subsequently stented without incident. There was no other coronary disease aside from a 20 to 30% ostial left main stenosis. She has a codominant system with a fairly large right coronary and circumflex coronary arteries. There was dyskinesis of the apex with an ejection fraction of 40%. CBC was unremarkable. Clotting studies were normal. Chemistry panel was normal. Her baseline troponin was 61, 2-hour troponin was 1166 and 6-hour troponin 3197. BNP 297. EKG evolved as expected with Q wave development through lead V3 and ST and T wave changes as expected. There were also T wave inversions which developed in leads I and aVL. The sheath was pulled without incident. There was no hematoma, bleeding or other vascular anomaly. This was the case the morning of discharge as well. Patient is intolerant of statins. These were prescribed for her when she was in the hospital a few weeks ago with a stroke. She did not tolerate these because of inability to sleep and so they were discontinued. 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 Physical Exam Narrative: GENERAL: In general she looks and feels well HEENT: Exam within normal limits. NECK: Supple without jugular vein distention. The carotid upstroke is normal without bruits. BACK: Exam normal. LUNGS: Clear. HEART: Regular rate and rhythm. ABDOMEN: Benign without organomegaly or tenderness. EXTREMITIES: No edema. The right wrist has some small bruising but no hematoma. The right groin is without hematoma, vascular anomaly or bleeding. NEUROLOGIC: Exam normal. SKIN: Unremarkable. Discharge Data Studies Completed and Pending Completed Studies During Hospitalization Category Date Time Status SLITTER PROCESSED FILM request for service Stat Exams 12/13/21 06:47 Completed XR chest 1V portable [id number] Stat Exams 12/13/21 06:44 Completed Radiology Impressions Chest X-Ray 12/13/21 06:44 IMPRESSION: No confluent infiltrates in the lungs. Laboratory Results WBC 6.7 10^3/uL (4.0-10.0) 12/13/21 06:50 RBC 4.49 10^6/uL (4.1-5.3) 12/13/21 06:50 Hgb 14.1 g/dL (11.5-15.3) 12/13/21 06:50 Hct 43.3 % (37.0-47.0) 12/13/21 06:50 MCV 96.4 fl (81-99) 12/13/21 06:50 MCH 31.4 pg (28.0-34.0) 12/13/21 06:50 MCHC 32.6 g/dL (30.0-36.0) 12/13/21 06:50 RDW 12.7 % (12.1-15.1) 12/13/21 06:50 Plt Count 182 10^3/cmm (130-400) 12/13/21 06:50 MPV 10.2 fL (7.4-10.4) 12/13/21 06:50 Neut % (Auto) 64.1 % 12/13/21 06:50 Lymph % (Auto) 27.8 % 12/13/21 06:50 Gibson % (Auto) 5.8 % 12/13/21 06:50 Eos % (Auto) 1.9 % 12/13/21 06:50 Baso % (Auto) 0.1 % 12/13/21 06:50 Neut # (Auto) 4.28 10^3/uL (1.8-7.7) 12/13/21 06:50 Lymph # (Auto) 1.9 10^3/uL (0.8-4.8) 12/13/21 06:50 Gibson # (Auto) 0.4 10^3/uL (0.2-0.9) 12/13/21 06:50 Eos # (Auto) 0.1 10^3/uL (0.0-0.8) 12/13/21 06:50 Baso # (Auto) 0.0 10^3/uL (0.0-0.1) 12/13/21 06:50 Nucleated RBC % (auto) 0 % 12/13/21 06:50 Nucleated RBCs # 0.0 /100WBC 12/13/21 06:50 PT 13.20 SECONDS (12.1-14.9) 12/13/21 06:50 INR 0.97 (0.8-1.2) 12/13/21 06:50 APTT 34.2 SECONDS (23.9-36.7) 12/13/21 11:00 Sodium 141 mmol/L (136-145) 12/13/21 06:50 Potassium 4.3 mmol/L (3.5-5.1) 12/13/21 06:50 Chloride 106 mmol/L (98-107) 12/13/21 06:50 Carbon Dioxide 24 mmol/L (22-29) 12/13/21 06:50 Anion Gap 15.3 (5-19) 12/13/21 06:50 BUN 13 mg/dL (8-23) 12/13/21 06:50 Creatinine 0.8 mg/dL (0.5-0.9) 12/13/21 06:50 GFR Calculation Not Reportable 12/13/21 06:50 Glucose 142 mg/dL (65-115) H 12/13/21 06:50 Calculated Osmolality 295 mOsm/kg (285-295) 12/13/21 06:50 Calcium 8.9 mg/dL (8.5-10.5) 12/13/21 06:50 Total Bilirubin 1.1 mg/dL (0.15-1.2) 12/13/21 06:50 AST 28 U/L (0-32) 12/13/21 06:50 ALT 25 U/L (0-33) 12/13/21 06:50 Alkaline Phosphatase 78 U/L (35-105) 12/13/21 06:50 Troponin T Baseline 61 ng/L (0-10) H 12/13/21 06:50 Troponin T 120 Minute 1166 ng/L (0-10) H 12/13/21 08:55 Delta Troponin T 1105 ABS# (0-10) H* 12/13/21 08:55 Troponin T Hi Sens 6Hr 3258 ng/L (0-10) H 12/13/21 11:07 Troponin T Hi Sens 6Hr Delta 3197 ng/L (0-12) H* 12/13/21 11:07 NT-Pro-B Natriuret Pep 297 pg/mL (0-450) 12/13/21 06:50 Total Protein 6.3 g/dL (6.6-8.7) L 12/13/21 06:50 Albumin 3.9 g/dL (3.5-5.2) 12/13/21 06:50 Globulin 2.4 g/dL (1.3-4.6) 12/13/21 06:50 Procedures Performed Left heart catheterization, left ventriculography, coronary angiography, angioplasty and stent of the LAD. Vitals Last Vital Signs Temp 97.9 F 12/13/21 15:00 Pulse 73 12/14/21 07:00 Resp 20 H 12/14/21 07:00 BP 157/72 12/14/21 07:00 Pulse Ox 94 12/14/21 07:00 O2 Del Method 12/13/21 09:00 Discharge Plan Discharge Patient Disposition: Home Condition: Stable Prescriptions: New nitroglycerin 0.4 mg Tablet, Sublingual 0.4 mg sublingual Q5M PRN (Reason: Chest Pain) 9 Days Qty: 25 3RF metoprolol tartrate 50 mg Tablet 50 mg PO BID 30 Days Qty: 60 2RF Continued oxybutynin chloride 10 mg tablet extended release 24 hr 10 mg PO BEDTIME aspirin 81 mg Tablet,Delayed Release (Dr/Ec) 81 mg PO DAILY Qty: 90 3RF clopidogrel [Plavix] 75 mg tablet 75 mg PO DAILY Qty: 20 0RF Referrals: Dilip Dailey [Primary Care Provider] - Shefali Malhotra FNP [Nurse Practitioner] - 7-10 days (Right check and chemistry panel) Katie An MD [Physician] - 3 months (Follow-up for anterior wall myocardial infarction, vascular disease) Discharge Diet: Cardiac Discharge Activity: Resume usual activity and Limit activity as instructed Patient Instructions: Opioid Safety Activity Restrictions/Additional Instructions: No lifting over 5 pounds for 2 days. Discharge Attestations Time Spent in Discharge Care*: greater than 30 min Quality Metrics Clinical Quality Measures [ Acute Myocardial Infaction { Clinical Trial Participant: No; Contraindication to aspirin: None; Aspirin prescribed; Contraindication to statin: Adverse reaction to drug and Drug declined by patient; Contraindication to PCI: None; PCI performed;}] Coding Level of Care Code Established Pt Acute Chg FW DC note Patient Type Established History Detailed Exam Detailed Medical Decision Making Moderate Complexity Diagnoses ST elevation myocardial infarction (STEMI) I21.3 Impaired glucose tolerance R73.02 Obesity E66.9 History of CVA (cerebrovascular accident) Z86.73 Statin intolerance Z78.9
[2021-12-14] MEDS: aspirin 81 mg EC Tablet PO (08:51)
[2021-12-14] MEDS: clopidogrel 75 mg Tablet PO (08:51)
[2021-12-14] MEDS: metoprolol tartrate 50 mg Tablet PO (08:51)
== END 2021-12-14 16:53 | disposition home or self-care (01) | DRG 247 ==
LOC: ER 07:06 → CCL 07:08 → ICU 08:59
PROVIDERS: Emergency Medicine; Admitting Provider Internal Medicine Cardiovascular Disease; Emergency Provider Family Medicine; PCP Family Medicine; Visit Provider Internal Medicine Cardiovascular Disease
PROC: 027034Z Dilation of Coronary Artery, One Artery with Drug-eluting Intraluminal Device, Percutaneous Approach (ICD-10-PCS; principal; 2021-12-13 06:30)
PROC: 027034Z Dilation of Coronary Artery, One Artery with Drug-eluting Intraluminal Device, Percutaneous Approach (ICD-10-PCS; 2021-12-13 06:30)
DX: I21.09 ST elevation (STEMI) myocardial infarction involving other coronary artery of anterior wall (principal); Z68.41 Body mass index [BMI] 40.0-44.9, adult; E66.01 Morbid (severe) obesity due to excess calories; R73.02 Impaired glucose tolerance (oral); I10 Essential (primary) hypertension; Z87.891 Personal history of nicotine dependence; Z79.02 Long term (current) use of antithrombotics/antiplatelets; Z79.82 Long term (current) use of aspirin; Z78.9 Other specified health status; Z86.73 Personal history of transient ischemic attack (TIA), and cerebral infarction without residual deficits; Z86.16 Personal history of COVID-19
CPT/HCPCS: 36415; 71045; 80053; 83880; 84484; 85025; 85610; 85730; 93005; 93458; 96360; 96374; 96375; 99152; 99153; 99285; C1725; C1769; C1874; C1887; C1894; C9600; J1644; J2250; J2405; J3010; J3490; J7030; Q9967

== ENCOUNTER → 2021-12-23 12:51 | Outpatient (BNVA) | payer MEDICARE, SELFPAY | PROVIDERS: PCP Family Medicine; Visit Provider Nurse Practitioner Family | DX: I50.20 Unspecified systolic (congestive) heart failure (principal); Z86.73 Personal history of transient ischemic attack (TIA), and cerebral infarction without residual deficits; I25.10 Atherosclerotic heart disease of native coronary artery without angina pectoris; I48.91 Unspecified atrial fibrillation | CPT/HCPCS: 80048; 83880; 93270; 99214 ==

== ENCOUNTER → 2022-01-19 14:51 | Outpatient (BNVA) | payer MEDICARE, SELFPAY | PROVIDERS: PCP Family Medicine; Visit Provider Nurse Practitioner Family | DX: I48.91 Unspecified atrial fibrillation (principal); Z79.01 Long term (current) use of anticoagulants; I11.0 Hypertensive heart disease with heart failure; I50.20 Unspecified systolic (congestive) heart failure | CPT/HCPCS: 99214 ==

== ENCOUNTER → 2022-03-04 16:12 | Outpatient (BNVA) | payer MEDICARE, SELFPAY | PROVIDERS: PCP Family Medicine; Visit Provider Internal Medicine Cardiovascular Disease | DX: I48.91 Unspecified atrial fibrillation (principal); I50.20 Unspecified systolic (congestive) heart failure; Z78.9 Other specified health status; I21.3 ST elevation (STEMI) myocardial infarction of unspecified site; Z86.73 Personal history of transient ischemic attack (TIA), and cerebral infarction without residual deficits; R06.02 Shortness of breath; I25.10 Atherosclerotic heart disease of native coronary artery without angina pectoris | CPT/HCPCS: 36415; 80053; 80061; 83721; 83735; 83880; 85025; 99214 ==

== ENCOUNTER 2022-03-05 15:13 | Emergency (ER) | payer MEDICARE, SELFPAY ==
[2022-03-05] VITALS (48 sets, daily range): BP systolic 138–166; BP diastolic 66–118; PULSE 75–100; RESP 13–30; TEMP 36.6; O2SAT 78–100
--- NOTE | 2022-03-05 16:27 | XRR_ITS ---
PROCEDURE INFORMATION: Exam: XR Chest Exam date and time: 03/05/2022 4:33 PM Age: 81 years old Clinical indication: Pain; Angina pectoris; Additional info: Chest pain TECHNIQUE: Imaging protocol: Radiologic exam of the chest. Views: 1 view. COMPARISON: CR XR chest 1V portable [id number] 12/13/2021 6:48 AM FINDINGS: Lungs: Unremarkable. No consolidation. Low lung volumes seen. Pleural spaces: Unremarkable. No pleural effusion. No pneumothorax. Heart/Mediastinum: Unremarkable. No cardiomegaly. Bones/joints: Unremarkable. XR/XR chest 1V portable [id number] IMPRESSION: No acute findings. Low lung volumes
--- NOTE | 2022-03-05 17:16 | ECG_ITS ---
[facility] Test Date: 2022-03-05 Pat Name: Laura Rodriguez Department: Room: Gender: Female Electrical Assemblies Supervisor: : 1940 Requested By: Tyson Graf Order Number: [id number] Valentino MD: Yimi Paz M.D. Measurements Intervals [place] Rate: 84 P: 0 MD: 0 QRS: 84 QRSD: 87 T: 88 QT: 298 QTc: 354 Interpretive Statements ATRIAL FIBRILLATION LOW QRS VOLTAGE IN PRECORDIAL LEADS [QRS DEFLECTION < 1.0 mV IN CHEST LEADS] ANTEROSEPTAL MYOCARDIAL INFARCTION , PROBABLY OLD [40+ ms Q WAVE IN V1-V4] Compared to ECG 12/13/2021 13:09:30 Low QRS voltage now present Sinus rhythm no longer present Right-axis deviation no longer present Myocardial infarct finding still present Electronically Signed On 03-05-2022 20:44:23 NATURAL GAS INSPECTOR by Yimi Paz M.D. [id number]
[2022-03-05 17:58] LABS: Basophils % 0.1 %; Eosinophils # 0.2 10^3/uL (0.0-0.8); Eosinophils % 1.7 %; Hematocrit 45.8 % (37.0-47.0); Hemoglobin 14.4 g/dL (11.5-15.3); Lymphocytes # 2.2 10^3/uL (0.8-4.8); Lymphocytes % 18.8 %; Mean Corpuscular HGB Conc 31.4 g/dL (30.0-36.0); Mean Corpuscular Hemoglobin 29.8 pg (28.0-34.0); Mean Corpuscular Volume 94.6 fl (81-99); Mean Platelet Volume 10.4 fL (7.4-10.4); Monocytes # 0.9 10^3/uL (0.2-0.9); Monocytes % 7.7 %; Neutrophils # 8.39 10^3/uL (1.8-7.7); Neutrophils % 71.4 %; Nucleated Red Blood Cells % 0 %; Platelet Count 219 10^3/cmm (130-400); Red Blood Count 4.84 10^6/uL (4.1-5.3); Red Cell Distribution Width 12.9 % (12.1-15.1); White Blood Count 11.7 10^3/uL (4.0-10.0)
[2022-03-05 18:25] LABS: Troponin(5th) Baseline 12 ng/L (0-10)
[2022-03-05 18:28] LABS: Alanine Aminotransferase 31 U/L (0-33); Albumin Level 3.9 g/dL (3.5-5.2); Alkaline Phosphatase 94 U/L (35-105); Anion Gap 13.9 (5-19); Aspartate Amino Transferase 31 U/L (0-32); Blood Urea Nitrogen 19 mg/dL (8-23); Calcium 9.4 mg/dL (8.5-10.5); Carbon Dioxide 25 mmol/L (22-29); Chloride 103 mmol/L (98-107); Globulin 3.4 g/dL (1.3-4.6); Glucose 116 mg/dL (65-115); Osmolality Calculated 289 mOsm/kg (285-295); Potassium 3.9 mmol/L (3.5-5.1); Sodium 138 mmol/L (136-145); Total Bilirubin 1.1 mg/dL (0.15-1.2); Total Protein 7.3 g/dL (6.6-8.7)
--- NOTE | 2022-03-05 19:01 | ECG_ITS ---
[facility] Test Date: 2022-03-05 Pat Name: Laura Rodriguez Department: Room: Gender: Female Car Rental Agent: : 1940 Requested By: Tyson Graf Order Number: [id number] Valentino MD: Yimi Paz M.D. Measurements Intervals [place] Rate: 84 P: 0 [place]: 0 QRS: 81 QRSD: 96 T: 7 QT: 382 QTc: 452 Interpretive Statements ATRIAL FIBRILLATION LOW QRS VOLTAGE IN PRECORDIAL LEADS [QRS DEFLECTION < 1.0 mV IN CHEST LEADS] SEPTAL MYOCARDIAL INFARCTION , PROBABLY OLD [40+ ms Q WAVE IN V1/V2] Compared to ECG 03/05/2022 17:16:44 No significant changes Electronically Signed On 03-05-2022 20:51:42 NUCLEAR PROCESS ENGINEER by Yimi Paz M.D. [id number]
--- NOTE | 2022-03-05 19:19 | ED_ITS ---
HPI - Chest Pain General: Chief Complaint: Chest Pain Stated Complaint: CHEST PAIN Time Seen by Provider: 03/05/22 17:07 Source: patient Mode of arrival: ambulatory Limitations: no limitations History of Present Illness: See nursing assessment. Patient with complaints of substernal chest pressure and left-sided chest pressure started around 1345 today while at work. Patient reports tightness in that area that started about an hour and a half after eating. She denies any shortness of breath or chest pain at this time. Denies shortness of breath earlier. She denies any nausea or vomiting. She denies any diaphoresis. She was not sure if this was indigestion or something related to her heart. She reports that she had coronary stent placed in October 2021. She states only blood thinner she is on now is aspirin daily. She no longer takes Plavix. She is not on any other blood thinners. 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 Atrial fibrillation BMI 37.0-37.9, adult Borderline hyperglycemia CAD (coronary artery disease) COVID-19 (08/2020) 0 Hypertension Seasonal allergies Statin intolerance Urinary incontinence Surgical History History of appendectomy Family History Brother Stroke Sister Stroke Father Stroke CAD (coronary artery disease) Mother Stroke Diabetes Social History Smoking and tobacco status: never smoked Quit status (tobacco): has quit using tobacco Former quit date comment: 50 years ago, smoked less than a year Alcohol intake: never Lives independently: Yes Physical Exam Const: COMMON NORMALS: no acute distress, patient oriented x3, no limitations and well nourished GENERAL APPEARANCE: cooperative OTHER: Blood pressure 166/99; oxygen saturation 100% on room air. Patient does not have an oxygen saturation of 69% as previously recorded. HENMT: COMMON NORMALS: normocephalic and atraumatic HEAD & SCALP: normocephalic and atraumatic FACE & SINUS: normal facial exam Eye: COMMON NORMALS: EOMs intact bilaterally Neck/C-Spine: COMMON NORMALS: full ROM, no lymphadenopathy, supple and no meningeal signs GENERAL: Yes normal visual inspection Lymph: LYMPHATIC: no lymphadenopathy noted Chest: COMMONS NORMALS: normal inspection of the chest and normal palpation of entire chest wall CHEST: No Ecchymosis present and No rash Resp: COMMON NORMALS: normal respiratory effort, No retractions and clear to auscultation bilaterally EFFORT & INSPECTION: No respiratory distress AUSCULTATION: clear to auscultation bilaterally Cardio: COMMON NORMALS: regular rate, regular rhythm and Peripheral pulses 2+ throughout JUGULAR VENOUS DISTENTION: no JVD RATE: regular rate RHYTHM: regular rhythm PERIPHERAL PULSES: Peripheral pulses 2+ throughout GI: COMMON NORMALS: Normal to inspection, nondistended, normoactive bowel sounds present and non-tender : COMMON NORMALS: Yes no CVA tenderness BLADDER/KIDNEY EXAM: Yes no CVA tenderness Back/Pelvis: COMMON NORMALS: no CVA tenderness Extremity: COMMON NORMALS: normal to inspection, full ROM and capillary refill normal Neuro: COMMON NORMALS: patient oriented x3, CN's II-XII intact bilaterally, no focal motor deficits and no sensory deficits noted MENINGEAL SIGNS: Yes no meningeal signs Psych: COMMON NORMALS: mental status grossly normal and Normal thought process present THOUGHT PROCESS: Normal thought process present Skin: COMMON NORMALS: no rashes or lesions noted and no wounds GENERAL SKIN EXAM: no rashes or lesions noted Course Vital Signs: Vital signs: Vital Signs Temperature 97.8 F 03/05/22 15:25 Pulse Rate 87 03/05/22 18:35 Respiratory Rate 15 03/05/22 18:35 Blood Pressure 152/92 03/05/22 18:35 Pulse Oximetry 79 L 03/05/22 18:15 Oxygen Delivery Me thod 03/05/22 17:35 MDM - Chest Pain Medical Decision Making Unstable angina versus GERD. Patient does have a history of coronary disease and chronic atrial fibrillation. Second troponin was essentially same. I offered admission for observation due to chest pain to the patient. Patient declined admission and wants to follow-up with her commercial print salesman as an outpatient. She did agree to return if worse. She will continue her aspirin daily and she has sublingual nitroglycerin to use as needed for chest pain at home. Lab Data 03/05/22 17:45 03/05/22 17:45 Radiology Impressions Chest X-Ray 03/05/22 16:27 IMPRESSION: No acute findings. Low lung volumes Laboratory Results WBC 11.7 10^3/uL (4.0-10.0) H 03/05/22 17:45 RBC 4.84 10^6/uL (4.1-5.3) 03/05/22 17:45 Hgb 14.4 g/dL (11.5-15.3) 03/05/22 17:45 Hct 45.8 % (37.0-47.0) 03/05/22 17:45 MCV 94.6 fl (81-99) 03/05/22 17:45 MCH 29.8 pg (28.0-34.0) 03/05/22 17:45 MCHC 31.4 g/dL (30.0-36.0) 03/05/22 17:45 RDW 12.9 % (12.1-15.1) 03/05/22 17:45 Plt Count 219 10^3/cmm (130-400) 03/05/22 17:45 MPV 10.4 fL (7.4-10.4) 03/05/22 17:45 Neut % (Auto) 71.4 % 03/05/22 17:45 Lymph % (Auto) 18.8 % 03/05/22 17:45 [place] % (Auto) 7.7 % 03/05/22 17:45 Eos % (Auto) 1.7 % 03/05/22 17:45 Baso % (Auto) 0.1 % 03/05/22 17:45 Neut # (Auto) 8.39 10^3/uL (1.8-7.7) H 03/05/22 17:45 Lymph # (Auto) 2.2 10^3/uL (0.8-4.8) 03/05/22 17:45 [place] # (Auto) 0.9 10^3/uL (0.2-0.9) 03/05/22 17:45 Eos # (Auto) 0.2 10^3/uL (0.0-0.8) 03/05/22 17:45 Baso # (Auto) 0.0 10^3/uL (0.0-0.1) 03/05/22 17:45 Nucleated RBC % (auto) 0 % 03/05/22 17:45 Nucleated RBCs # 0.0 /100WBC 03/05/22 17:45 Sodium 138 mmol/L (136-145) 03/05/22 17:45 Potassium 3.9 mmol/L (3.5-5.1) 03/05/22 17:45 Chloride 103 mmol/L (98-107) 03/05/22 17:45 Carbon Dioxide 25 mmol/L (22-29) 03/05/22 17:45 Anion Gap 13.9 (5-19) 03/05/22 17:45 BUN 19 mg/dL (8-23) 03/05/22 17:45 Creatinine 0.9 mg/dL (0.5-0.9) 03/05/22 17:45 GFR Calculation Not Reportable 03/05/22 17:45 Glucose 116 mg/dL (65-115) H 03/05/22 17:45 Calculated Osmolality 289 mOsm/kg (285-295) 03/05/22 17:45 Calcium 9.4 mg/dL (8.5-10.5) 03/05/22 17:45 Total Bilirubin 1.1 mg/dL (0.15-1.2) 03/05/22 17:45 AST 31 U/L (0-32) 03/05/22 17:45 ALT 31 U/L (0-33) 03/05/22 17:45 Alkaline Phosphatase 94 U/L (35-105) 03/05/22 17:45 Troponin T Baseline 12 ng/L (0-10) H 03/05/22 17:45 Troponin T 120 Minute 12.19 ng/L (0-10) H 03/05/22 19:54 Delta Troponin T 0.19 ABS# (0-10) 03/05/22 19:54 Total Protein 7.3 g/dL (6.6-8.7) 03/05/22 17:45 Albumin 3.9 g/dL (3.5-5.2) 03/05/22 17:45 Globulin 3.4 g/dL (1.3-4.6) 03/05/22 17:45 Imaging Data CXR: My impression: Atelectasis in the bases bilaterally Radiologist's impression: PROCEDURE INFORMATION: Exam: XR Chest Exam date and time: 03/05/2022 4:33 PM Age: 81 years old Clinical indication: Pain; Angina pectoris; Additional info: Chest pain TECHNIQUE: Imaging protocol: Radiologic exam of the chest. Views: 1 view. COMPARISON: CR XR chest 1V portable [id number] 12/13/2021 6:48 AM FINDINGS: Lungs: Unremarkable. No consolidation.? Low lung volumes seen. Pleural spaces: Unremarkable. No pleural effusion. No pneumothorax. Heart/Mediastinum: Unremarkable. No cardiomegaly. Bones/joints: Unremarkable. XR/XR chest 1V portable [id number] IMPRESSION: No acute findings. Low lung volumes ? Dictated By: Paresh Grubbs Signed By: Paresh Grubbs Signed Date/Time: 03/05/22 1704 EKG Data EKG 1: I personally reviewed and interpreted this EKG as follows: EKG interpretation date: 03/05/22 EKG interpretation time: 17:20 Interpretation: Atrial fibrillation rate controlled. Heart rate 84. Normal axis. Normal QRS. Nonspecific ST-T changes. Flattened T waves. No P waves EKG 2: I personally reviewed and interpreted this EKG as follows: EKG interpretation date: 03/05/22 EKG interpretation time: 19:05 Prior EKG tracings: available for review (No change from previous.) Interpretation: Atrial fibrillation rate controlled. Heart rate 84. normal axis. Normal QRS. Nonspecific ST-T changes. Flattened T waves. No P waves. Discharge Plan Discharge Patient Disposition: Home Clinical Impression: Atrial fibrillation, chronic Chest pain Qualifiers: Chest pain type: unspecified Qualified Code(s): R07.9 - Chest pain, unspecified Condition: Stable Prescriptions: Discontinued clopidogrel [Plavix] 75 mg tablet 75 mg PO DAILY Qty: 30 6RF Xarelto 20 mg tablet 20 mg PO DAILY Qty: 90 3RF Rx Instructions: must administer with evening meal/Please put under 340B No Action furosemide 40 mg tablet 40 mg PO DAILY Qty: 30 2RF potassium chloride [Klor-Con 8] 8 mEq tablet extended release 8 meq PO DAILY Qty: 30 1RF oxybutynin chloride 10 mg tablet extended release 24hr 10 mg PO BEDTIME PRN metoprolol tartrate 50 mg Tablet 50 mg PO BID 30 Days Qty: 60 2RF nitroglycerin 0.4 mg Tablet, Sublingual 0.4 mg sublingual Q5M PRN (Reason: Chest Pain) 9 Days Qty: 25 3RF Discharge Orders: Discharge ED (Routine); Ordered 03/05/22 Ordered By: Jose Nogueira Referrals: Jessica Fraser DO [Primary Care Provider] - Katie An MD [Physician] - 1-3 days (for follow up of chest pain) Discharge Diet: Cardiac and Low Salt Discharge Activity: Increase activity as tolerated Patient Instructions: Chest Pain (ED) Activity Restrictions/Additional Instructions: Continue daily aspirin. Follow-up with commercial print salesman tomorrow for follow-up instructions for evaluation of chest pain. Return if symptoms worsen. Continue nitroglycerin sublingual as directed. Coding Level of Care Code ED Satellite Television Installer for Graham Gutierres History Comprehensive Exam Comprehensive Medical Decision Making Moderate Complexity
[2022-03-05 20:42] LABS: Troponin 5 2HR 12.19 ng/L (0-10)
[2022-03-05 20:53] LABS: Troponin 5 2HR Delta 0.19 ABS# (0-10)
== END 2022-03-05 21:39 | disposition home or self-care (01) ==
PROVIDERS: Family Medicine; Emergency Provider Family Medicine; PCP Family Medicine
DX: I48.20 Chronic atrial fibrillation, unspecified (principal); R07.9 Chest pain, unspecified; I25.10 Atherosclerotic heart disease of native coronary artery without angina pectoris; I10 Essential (primary) hypertension; Z87.891 Personal history of nicotine dependence
CPT/HCPCS: 36415; 71045; 80053; 84484; 85025; 93005; 99285

== ENCOUNTER 2022-03-25 15:20 | Outpatient (RCR) | payer MEDICARE, SELFPAY ==
[2022-03-25 16:20] LABS: Alanine Aminotransferase 19 U/L (0-33); Albumin Level 3.6 g/dL (3.5-5.2); Alkaline Phosphatase 72 U/L (35-105); Aspartate Amino Transferase 21 U/L (0-32); Blood Urea Nitrogen 19 mg/dL (8-23); Calcium 8.9 mg/dL (8.5-10.5); Carbon Dioxide 26 mmol/L (22-29); Chloride 105 mmol/L (98-107); Globulin 3.2 g/dL (1.3-4.6); Glucose 122 mg/dL (65-115); Magnesium 2.2 mg/dL (1.7-2.3); NT Pro B Type Natriuretic Pept 1121 pg/mL (0-450); Osmolality Calculated 294 mOsm/kg (285-295); Sodium 140 mmol/L (136-145); Total Bilirubin 1.1 mg/dL (0.15-1.2); Total Protein 6.8 g/dL (6.6-8.7)
== END 2022-04-21 23:59 | disposition home or self-care (01) ==
LOC: CR 15:20
PROVIDERS: PCP Family Medicine; Referring Provider Internal Medicine Cardiovascular Disease; Visit Provider Internal Medicine Cardiovascular Disease
DX: Z95.5 Presence of coronary angioplasty implant and graft (principal); I25.10 Atherosclerotic heart disease of native coronary artery without angina pectoris; I48.91 Unspecified atrial fibrillation
CPT/HCPCS: 36415; 80053; 83735; 83880

== ENCOUNTER 2022-03-28 02:06 | Emergency (ER) | payer MEDICARE, SELFPAY ==
--- NOTE | 2022-03-28 02:08 | ECG_ITS ---
[facility] Test Date: 2022-03-28 Pat Name: Luara Rodriguez Department: Room: Gender: Female Registered Account Administrator: : 1940 Requested By: Gregg Cunningham Order Number: [id number] Valentino MD: Katie An M.D. Measurements Intervals [place] Rate: 102 P: 0 NE: 0 QRS: 48 QRSD: 98 T: 17 QT: 343 QTc: 447 Interpretive Statements ATRIAL FIBRILLATION WITH RAPID VENTRICULAR RESPONSE LOW QRS VOLTAGE IN PRECORDIAL LEADS [QRS DEFLECTION < 1.0 mV IN CHEST LEADS] POSSIBLE ANTERIOR MYOCARDIAL INFARCTION , PROBABLY OLD [30 ms Q WAVE IN V3/V4, OR R < 0.2 mV IN V4] ABNORMAL RHYTHM ECG Compared to ECG 03/05/2022 19:01:28 No significant changes Electronically Signed On 03-28-2022 8:48:44 MILL CONTROLLER by Katie An M.D. [id number]
--- NOTE | 2022-03-28 02:08 | XRR_ITS ---
PROCEDURE INFORMATION: Exam: XR Chest Exam date and time: 03/28/2022 3:15 AM Age: 81 years old Clinical indication: Pain; Chest pressure; Additional info: Cp TECHNIQUE: Imaging protocol: Radiologic exam of the chest. Views: 1 view. COMPARISON: CR XR chest 1V portable [id number] 03/05/2022 4:33 PM FINDINGS: Lungs: There are increased interstitial opacities present in the mid lower hemithoraces, findings that could represent mild pulmonary edema. Pleural spaces: Few linear opacities are seen in the lower hemithoraces bilaterally likely representing atelectasis versus pleural or parenchymal scarring. Heart/Mediastinum: There is mild prominence of the cardiac silhouette. Bones/joints: Unremarkable. XR/XR chest 1V portable [id number] IMPRESSION: 1. Mild prominence of the cardiac silhouette 2. Subtle increased interstitial opacities in the lower hemithoraces bilaterally, findings that could represent mild pulmonary edema. 3. Linear opacities in the lung bases most probably represents atelectasis.
[2022-03-28 02:13] VITALS: BMI 37.6
--- NOTE | 2022-03-28 02:14 | W.ED.CHESTPA ---
HPI - Chest Pain General: Chief Complaint: Chest Pain Stated Complaint: CP Time Seen by Provider: 03/28/22 02:07 Source: patient and EMS Mode of arrival: EMS Limitations: no limitations History of Present Illness: 81-year-old female has a history of a STEMI last year along with A-fib states that she woke up roughly 2 to 3 hours ago with chest pain and states it was a sharp pain in the center of her chest originally an 8 out of 10 she called EMS she states it gradually resolved on its own and she is currently pain-free patient received aspirin in route she denies any vomiting denies any diaphoresis denies any shortness of breath. 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 Atrial fibrillation BMI 37.0-37.9, adult Borderline hyperglycemia CAD (coronary artery disease) COVID-19 (08/2020) 0 Hypertension Seasonal allergies Statin intolerance Urinary incontinence Surgical History History of appendectomy Family History Brother Stroke Sister Stroke Father Stroke CAD (coronary artery disease) Mother Stroke Diabetes Social History Smoking and tobacco status: never smoked Quit status (tobacco): has quit using tobacco Former quit date comment: 50 years ago, smoked less than a year Alcohol intake: never Lives independently: Yes Physical Exam Const: COMMON NORMALS: no acute distress, patient oriented x3 and healthy appearing HENMT: COMMON NORMALS: normocephalic and atraumatic HEAD & SCALP: normocephalic and atraumatic Eye: COMMON NORMALS: Equal, round and reactive pupils present and EOMs intact bilaterally PUPIL: Yes Equal, round and reactive pupils present Neck/C-Spine: COMMON NORMALS: full ROM and supple Chest: COMMONS NORMALS: normal inspection of the chest and normal palpation of entire chest wall Resp: COMMON NORMALS: normal respiratory effort, No retractions, No use of accessory muscles and clear to auscultation bilaterally AUSCULTATION: clear to auscultation bilaterally Cardio: COMMON NORMALS: No murmurs present (Cardio) RATE: tachycardic RHYTHM: abnormal rhythm irregularly irregular GI: COMMON NORMALS: Normal to inspection, nondistended, normoactive bowel sounds present, Soft to palpation, non-tender and no masses PALPATION: Yes Soft to palpation Extremity: COMMON NORMALS: normal to inspection and full ROM Neuro: COMMON NORMALS: patient oriented x3, moves all extremities and no focal motor deficits Psych: COMMON NORMALS: mental status grossly normal, Normal thought process present and cooperative THOUGHT PROCESS: Normal thought process present Skin: COMMON NORMALS: no rashes or lesions noted and no wounds GENERAL SKIN EXAM: no rashes or lesions noted Course Vital Signs: Vital signs: Vital Signs Temperature 98.3 F 03/28/22 02:17 Pulse Rate 93 03/28/22 02:17 Respiratory Rate 18 03/28/22 02:17 Blood Pressure 158/72 03/28/22 02:17 Pulse Oximetry 98 03/28/22 02:17 Oxygen Delivery Me thod 03/28/22 02:17 MDM - Chest Pain Medical Decision Making Patient presents here with chest pain that is atypical in nature her troponins here are normal she has been pain-free here she is stable for discharge she is to follow her PCP and return if worsening. Lab Data 03/28/22 02:59 03/28/22 02:59 Radiology Impressions Chest X-Ray 03/28/22 02:08 IMPRESSION: 1. Mild prominence of the cardiac silhouette 2. Subtle increased interstitial opacities in the lower hemithoraces bilaterally, findings that could represent mild pulmonary edema. 3. Linear opacities in the lung bases most probably represents atelectasis. Laboratory Results WBC 8.2 10^3/uL (4.0-10.0) 03/28/22 02:59 RBC 4.39 10^6/uL (4.1-5.3) 03/28/22 02:59 Hgb 12.9 g/dL (11.5-15.3) 03/28/22 02:59 Hct 40.6 % (37.0-47.0) 03/28/22 02:59 MCV 92.5 fl (81-99) 03/28/22 02:59 MCH 29.4 pg (28.0-34.0) 03/28/22 02:59 MCHC 31.8 g/dL (30.0-36.0) 03/28/22 02:59 RDW 12.8 % (12.1-15.1) 03/28/22 02:59 Plt Count 185 10^3/cmm (130-400) 03/28/22 02:59 MPV 10.3 fL (7.4-10.4) 03/28/22 02:59 Neut % (Auto) 66.2 % 03/28/22 02:59 Lymph % (Auto) 22.4 % 03/28/22 02:59 [place] % (Auto) 9.3 % 03/28/22 02:59 Eos % (Auto) 1.8 % 03/28/22 02:59 Baso % (Auto) 0.1 % 03/28/22 02:59 Neut # (Auto) 5.39 10^3/uL (1.8-7.7) 03/28/22 02:59 Lymph # (Auto) 1.8 10^3/uL (0.8-4.8) 03/28/22 02:59 [place] # (Auto) 0.8 10^3/uL (0.2-0.9) 03/28/22 02:59 Eos # (Auto) 0.2 10^3/uL (0.0-0.8) 03/28/22 02:59 Baso # (Auto) 0.0 10^3/uL (0.0-0.1) 03/28/22 02:59 Nucleated RBC % (auto) 0 % 03/28/22 02:59 Nucleated RBCs # 0.0 /100WBC 03/28/22 02:59 Sodium 141 mmol/L (136-145) 03/28/22 02:59 Potassium 3.6 mmol/L (3.5-5.1) 03/28/22 02:59 Chloride 105 mmol/L (98-107) 03/28/22 02:59 Carbon Dioxide 25 mmol/L (22-29) 03/28/22 02:59 Anion Gap 14.6 (5-19) 03/28/22 02:59 BUN 21 mg/dL (8-23) 03/28/22 02:59 Creatinine 0.9 mg/dL (0.5-0.9) 03/28/22 02:59 GFR Calculation Not Reportable 03/28/22 02:59 Glucose 140 mg/dL (65-115) H 03/28/22 02:59 Calculated Osmolality 297 mOsm/kg (285-295) H 03/28/22 02:59 Calcium 8.4 mg/dL (8.5-10.5) L 03/28/22 02:59 Total Bilirubin 0.8 mg/dL (0.15-1.2) 03/28/22 02:59 AST 19 U/L (0-32) 03/28/22 02:59 ALT 16 U/L (0-33) 03/28/22 02:59 Alkaline Phosphatase 67 U/L (35-105) 03/28/22 02:59 Troponin T Baseline 13 ng/L (0-10) H 03/28/22 02:59 Troponin T 120 Minute 12.60 ng/L (0-10) H 03/28/22 04:05 Delta Troponin T -0.40 ABS# (0-10) L 03/28/22 04:05 Total Protein 5.9 g/dL (6.6-8.7) L 03/28/22 02:59 Albumin 3.6 g/dL (3.5-5.2) 03/28/22 02:59 Globulin 2.3 g/dL (1.3-4.6) 03/28/22 02:59 EKG Data EKG 1: I personally reviewed and interpreted this EKG as follows: EKG interpretation date: 03/28/22 EKG interpretation time: 02:15 Interpretation: afib hr [address] or t wave abnormalities qrs 98 qtc 401 Discharge Plan Discharge Patient Disposition: Home Clinical Impression: Chest pain Condition: Stable Prescriptions: No Action furosemide 40 mg tablet 40 mg PO DAILY Qty: 30 2RF potassium chloride [Klor-Con 8] 8 mEq tablet extended release 8 meq PO DAILY Qty: 30 1RF Entresto 24-26 mg tablet 1 tab PO BID Qty: 60 3RF clopidogrel 75 mg tablet 75 mg PO DAILY Qty: 90 3RF ezetimibe [Zetia] 10 mg tablet 10 mg PO DAILY Qty: 90 3RF oxybutynin chloride 10 mg tablet extended release 24hr 10 mg PO BEDTIME PRN metoprolol tartrate 50 mg Tablet 50 mg PO BID 30 Days Qty: 60 2RF nitroglycerin 0.4 mg Tablet, Sublingual 0.4 mg sublingual Q5M PRN (Reason: Chest Pain) 9 Days Qty: 25 3RF Discharge Orders: Discharge ED (Routine); Ordered 03/28/22 Ordered By: Gregg Cunningham Referrals: Jessica Fraser DO [Primary Care Provider] - 1-3 days Discharge Diet: Advance as tolerated Discharge Activity: Resume usual activity Patient Instructions: Chest Pain (ED) Coding Level of Care Code ED Housekeeping And Laundry Team Leader for Mallorieg Fwd Exam Comprehensive
[2022-03-28 02:17] VITALS: BP 158/72; PULSE 93; RESP 18; TEMP 36.8; O2SAT 98
[2022-03-28 03:07] LABS: Basophils % 0.1 %; Eosinophils # 0.2 10^3/uL (0.0-0.8); Eosinophils % 1.8 %; Hematocrit 40.6 % (37.0-47.0); Hemoglobin 12.9 g/dL (11.5-15.3); Lymphocytes # 1.8 10^3/uL (0.8-4.8); Lymphocytes % 22.4 %; Mean Corpuscular HGB Conc 31.8 g/dL (30.0-36.0); Mean Corpuscular Hemoglobin 29.4 pg (28.0-34.0); Mean Corpuscular Volume 92.5 fl (81-99); Mean Platelet Volume 10.3 fL (7.4-10.4); Monocytes # 0.8 10^3/uL (0.2-0.9); Monocytes % 9.3 %; Neutrophils # 5.39 10^3/uL (1.8-7.7); Neutrophils % 66.2 %; Nucleated Red Blood Cells % 0 %; Platelet Count 185 10^3/cmm (130-400); Red Blood Count 4.39 10^6/uL (4.1-5.3); Red Cell Distribution Width 12.8 % (12.1-15.1); White Blood Count 8.2 10^3/uL (4.0-10.0)
[2022-03-28] MEDS: dilTIAZem 5 mg/mL SDV 5 mL 10 MG IVP (03:08)
[2022-03-28 03:26] LABS: Troponin(5th) Baseline 13 ng/L (0-10)
[2022-03-28 03:29] LABS: Alanine Aminotransferase 16 U/L (0-33); Albumin Level 3.6 g/dL (3.5-5.2); Alkaline Phosphatase 67 U/L (35-105); Anion Gap 14.6 (5-19); Aspartate Amino Transferase 19 U/L (0-32); Blood Urea Nitrogen 21 mg/dL (8-23); Calcium 8.4 mg/dL (8.5-10.5); Carbon Dioxide 25 mmol/L (22-29); Chloride 105 mmol/L (98-107); Globulin 2.3 g/dL (1.3-4.6); Glucose 140 mg/dL (65-115); Osmolality Calculated 297 mOsm/kg (285-295); Potassium 3.6 mmol/L (3.5-5.1); Sodium 141 mmol/L (136-145); Total Bilirubin 0.8 mg/dL (0.15-1.2); Total Protein 5.9 g/dL (6.6-8.7)
--- NOTE | 2022-03-28 04:08 | ECG_ITS ---
[facility] Test Date: 2022-03-28 Pat Name: Laura Rodriguez Department: Room: Gender: Female Heddle Machine Operator: : 1940 Requested By: Gregg Cunningham Order Number: [id number] Valentino MD: Katie An M.D. Measurements Intervals [place] Rate: 89 P: 0 MO: 0 QRS: 37 QRSD: 102 T: 50 QT: 351 QTc: 428 Interpretive Statements ATRIAL FIBRILLATION LOW QRS VOLTAGE [QRS DEFLECTION < 0.5/1.0 mV IN LIMB/CHEST LEADS] ANTERIOR MYOCARDIAL INFARCTION , PROBABLY OLD [40+ ms Q WAVE AND/OR ST/T ABNORMALITY IN V3/V4] Compared to ECG 03/28/2022 02:15:30 No significant changes Electronically Signed On 03-28-2022 8:49:35 LOAN INTERVIEWER MORTGAGE by Katie An M.D. [id number]
== END 2022-03-28 05:03 | disposition home or self-care (01) ==
PROVIDERS: Emergency Provider Emergency Medicine; PCP Family Medicine
DX: R07.9 Chest pain, unspecified (principal); Z79.02 Long term (current) use of antithrombotics/antiplatelets; Z87.891 Personal history of nicotine dependence; Z86.73 Personal history of transient ischemic attack (TIA), and cerebral infarction without residual deficits; I25.10 Atherosclerotic heart disease of native coronary artery without angina pectoris; I10 Essential (primary) hypertension
CPT/HCPCS: 71045; 80053; 84484; 85025; 93005; 96374; 99285; J3490

== ENCOUNTER 2022-03-31 14:57 | Outpatient (CLI) | payer MEDICARE, SELFPAY ==
--- NOTE | 2022-03-31 15:15 | USCV_ITS ---
Laura Rodriguez Age: 81 Gender: F : 1940 Exam Date: 03/31/2022 15:19 Ordering Phys: Katie An MD ([email or web address]) Technologist: Manfred Shelley Exam Location: [facility] Indication: Assess LV function BP: 136 / 76 HR: 117 Rhythm: Atrial fibrillation Technical Quality: Adequate MEASUREMENTS (Male / Female) Normal Values 2D ECHO LV Diastolic Diameter PLAX 3.5 cm 4.2 - 5.9 / 3.9 - 5.3 cm LV Systolic Diameter PLAX 2.3 cm IVS Diastolic Thickness 1.0 cm 0.6 - 1.0 / 0.6 - 0.9 cm IVS Systolic Thickness 1.1 cm LVPW Diastolic Thickness 1.6 cm 0.6 - 1.0 / 0.6 - 0.9 cm LVPW Systolic Thickness 2.3 cm LVOT Diameter 2.0 cm LV Ejection Fraction 2D Teich 65.1 % LV Ejection Fraction MOD 2C 65.1 % LV Ejection Fraction 2C AL 65.7 % LA Diameter 4.1 cm LA Width 4.0 cm LA Height 5.7 cm RA Width 3.1 cm RA Height 4.7 cm Aorta at Sinotubular Diameter 2.1 cm IVC Diameter 1.3 cm M-MODE Aortic Annulus Diameter 2.4 cm LA Ao Ratio MM 1.7 MV E Point Septal Separation 0.5 cm DOPPLER Right Atrial Pressure 3.0 mmHg FINDINGS Left Ventricle Normal left ventricular size, systolic function and wall thickness. Left ventricular ejection fraction is estimated at 60 %. There is mild hypokinesis of apical septal wall. Right Ventricle Normal right ventricular size and systolic function. Right Atrium Normal right atrial size. Left Atrium Mildly increased left atrial size. Mitral Valve Mild mitral annular calcification. Mildly thickened mitral valve. No mitral valve stenosis. Aortic Valve Aortic valve not well visualized. Tricuspid Valve Structurally normal tricuspid valve. Pulmonic Valve Pulmonic valve not well visualized. Pericardium No pericardial effusion. Aorta Normal size aortic root and proximal ascending aorta. IVC Normal IVC dimension with >50% respiratory change of the inferior vena cava. CONCLUSIONS 1. Normal left ventricular size, systolic function and wall thickness. Left ventricular ejection fraction is estimated at 60 %. There is mild hypokinesis of apical septal wall. 2. When compared to study dated 11/17/21, there seems to be apical hypokinesis now. Katie An MD (Electronically Signed) Final Date: 04 April 2022 20:11 S
== END 2022-03-31 14:58 | disposition home or self-care (01) ==
LOC: RAD 14:57
PROVIDERS: PCP Family Medicine; Visit Provider Internal Medicine Cardiovascular Disease
DX: I50.20 Unspecified systolic (congestive) heart failure (principal); R06.02 Shortness of breath
CPT/HCPCS: 93308

== ENCOUNTER 2022-04-30 20:00 | Outpatient (CLI) | payer MEDICARE, SELFPAY | END 2022-04-30 20:01 | disposition home or self-care (01) | LOC: SLEEP 05-01 04:30 | PROVIDERS: PCP Family Medicine; Visit Provider Nurse Practitioner Family | DX: R06.09 Other forms of dyspnea (principal); R53.83 Other fatigue; G47.33 Obstructive sleep apnea (adult) (pediatric); I48.91 Unspecified atrial fibrillation | CPT/HCPCS: 95810 ==

== ENCOUNTER 2022-05-03 12:41 | Emergency (ER) | payer MEDICARE, SELFPAY ==
[2022-05-03 12:43] VITALS: BP 130/73; PULSE 82; RESP 20; TEMP 36.5; O2SAT 98
[2022-05-03 13:02] VITALS: BP 113/56; PULSE 84; RESP 14; O2SAT 97
--- NOTE | 2022-05-03 13:06 | XRR_ITS ---
PROCEDURE INFORMATION: Exam: XR Chest Exam date and time: 05/03/2022 1:17 PM Age: 81 years old Clinical indication: Dyspnea; Additional info: Dyspnea, edema TECHNIQUE: Imaging protocol: Radiologic exam of the chest. Views: 1 view. COMPARISON: CR (CHEST, ) 03/28/2022 3:15 AM FINDINGS: Lungs: There is a stable right infrahilar density projecting over the right heart border unchanged from August 2020 and believed vascular nature. Lung volumes are mildly decreased. There are mild interstitial lung changes present peripherally lower lung zones, stable believed chronic. Upper lung moseley are clear. Pleural spaces: Unremarkable. No pleural effusion. No pneumothorax. Heart/Mediastinum: Heart is mild-moderately enlarged but stable. Bones/joints: Unremarkable for age. XR/XR chest 1V portable [id number] IMPRESSION: Cardiomegaly. Stable chest. No active disease.
--- NOTE | 2022-05-03 13:06 | W.ED.SOB ---
HPI - SOB/Dyspnea General: Chief Complaint: Shortness of Breath/Dyspnea Stated Complaint: sob Time Seen by Provider: 05/03/22 13:01 History of Present Illness: HPI Narrative: Patient presents to the ER with complaints of worsening shortness of breath and edema, patient states she has been going downhill for approximately last 1 week. Patient is on Lasix but she says never really has control the edema. Patient states she can only walk about 10 to 15 feet before she gets winded and have to take a break. Patient does have known congestive heart failure and is on Lasix 40 mg daily MD elicited complaint: shortness of breath Pertinent past history: congestive heart failure Onset (ago): week(s) (1) Timing: constant and progressively worsening Severity: moderate Exacerbating factors: lying flat and exertion Relieving factors: nothing Known history of: congestive heart failure Associated symptoms: Deny abdominal pain, chest pain, fever(s), nausea, palpitations, polydipsia, polyuria or vomiting Treatment prior to arrival: diuretics Related Data: Home oxygen amount: none Review of Systems General: Reports: 10 or more systems reviewed and unremarkable except in HPI and below Const: Denies: fever(s), chills, body aches or change in appetite Eyes: Denies: change in vision or blurry vision ENMT: Denies: throat pain or odynophagia Card: Reports: edema; Denies: chest pain or palpitations Resp: Reports: dyspnea; Denies: productive cough, non-productive cough or wheezing GI: Denies: abdominal pain, nausea, vomiting or diarrhea : Denies: flank pain, difficulty voiding, dysuria or urinary hesitancy Musc: Denies: neck pain or back pain Skin/Breast: Denies: rash, pruritus, erythema or photosensitivity Neuro: Denies: headache(s), numbness in extremities or weakness in extremities Psych: Denies: anxiety, depression or mood swings Endo: Denies: polyuria, polydipsia or tired all the time Magen/Lymph: Denies: easy bruising, easy bleeding or petechiae All/Imm: Denies: urticaria, throat swelling or tongue swelling PFSH ED PFSH: Medical History Acne rosacea 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 Atrial fibrillation BMI 37.0-37.9, adult Borderline hyperglycemia CAD (coronary artery disease) COVID-19 (08/2020) 0 Hypertension Seasonal allergies Statin intolerance Urinary incontinence Surgical History History of appendectomy Family History Brother Stroke Sister Stroke Father Stroke CAD (coronary artery disease) Mother Stroke Diabetes Social History Smoking and tobacco status: never smoked Quit status (tobacco): has quit using tobacco Former quit date comment: 50 years ago, smoked less than a year Alcohol intake: never Lives independently: Yes Physical Exam Const: COMMON NORMALS: no acute distress, patient oriented x3, alert and well nourished NUTRITIONAL APPEARANCE: obese HENMT: COMMON NORMALS: normocephalic, atraumatic and hearing grossly normal bilaterally HEAD & SCALP: normocephalic and atraumatic Eye: COMMON NORMALS: Equal, round and reactive pupils present, EOMs intact bilaterally and conjunctivae normal CONJUNCTIVA: Yes conjunctivae normal PUPIL: Yes Equal, round and reactive pupils present Neck/C-Spine: COMMON NORMALS: full ROM, no lymphadenopathy, supple, no JVD and Thyroid normal THYROID: Thyroid normal Chest: COMMONS NORMALS: normal inspection of the chest Resp: COMMON NORMALS: normal respiratory effort, No retractions, No use of accessory muscles and clear to auscultation bilaterally AUSCULTATION: clear to auscultation bilaterally Cardio: COMMON NORMALS: no JVD, regular rate, S1 normal heart sound present, S2 normal heart sound present, No gallops present (Cardio), No clicks present (Cardio) and No murmurs present (Cardio) RATE: regular rate RHYTHM: abnormal rhythm irregularly irregular HEART SOUNDS: S1 normal heart sound present and S2 normal heart sound present GI: COMMON NORMALS: Normal to inspection, nondistended, normoactive bowel sounds present, Soft to palpation, non-tender, No hepatosplenomegaly present and no masses PALPATION: Yes Soft to palpation and Yes No hepatosplenomegaly present : COMMON NORMALS: Yes no CVA tenderness BLADDER/KIDNEY EXAM: Yes no CVA tenderness Back/Pelvis: COMMON NORMALS: no CVA tenderness Extremity: NARRATIVE EXTREMITY EXAM: Bilateral lower extremity edema 2+ pitting Neuro: COMMON NORMALS: patient oriented x3, CN's II-XII intact bilaterally, moves all extremities, no focal motor deficits and no sensory deficits noted SENSORIUM/ORIENTATION: Yes alert Psych: COMMON NORMALS: mental status grossly normal, Normal thought process present, cooperative, normal affect and speech normal SPEECH: Yes normal speech THOUGHT PROCESS: Normal thought process present Skin: COMMON NORMALS: no rashes or lesions noted, no wounds, turgor normal, no jaundice and no petechiae GENERAL SKIN EXAM: no rashes or lesions noted and turgor normal Course Vital Signs: Vital signs: Vital Signs Temperature 97.7 F 05/03/22 12:43 Pulse Rate 84 05/03/22 13:02 Respiratory Rate 14 05/03/22 13:02 Blood Pressure 113/56 05/03/22 13:02 Pulse Oximetry 97 05/03/22 13:02 Oxygen Delivery Me thod 05/03/22 13:02 MDM - SOB/Dyspnea Medical Decision Making Patient presents to the ER, complains of shortness of breath and fluid overload, patient is on daily Lasix but says it has never really worked very good, patient is more swollen than normal, upon history and physical exam of the patient and review of lab work and x-ray lab work did show a BNP that was elevated at approximately 1121 chest x-ray did not show any pulmonary edema or infiltrate. Patient is resting comfortably on room air. Findings were discussed with the patient as well as increasing her Lasix dose for today and sending her home on additional diuretic for the next 3 days. Patient is agreeable to this and will follow up with her primary care physician within the next week. Differential Diagnosis Likely acute exacerbation of chronic obstructive airways disease, congestive heart failure and community acquired pneumonia Medical Records I reviewed the patient's medical records. Lab Data I reviewed the patient's lab results. 05/03/22 13:22 05/03/22 13:22 Labs/Radiology: Radiology Impressions Chest X-Ray 05/03/22 13:06 IMPRESSION: Cardiomegaly. Stable chest. No active disease. Laboratory Results WBC 7.7 10^3/uL (4.0-10.0) 05/03/22 13:22 RBC 3.89 10^6/uL (4.1-5.3) L 05/03/22 13:22 Hgb 11.6 g/dL (11.5-15.3) 05/03/22 13:22 Hct 37.7 % (37.0-47.0) 05/03/22 13:22 MCV 96.9 fl (81-99) 05/03/22 13:22 MCH 29.8 pg (28.0-34.0) 05/03/22 13:22 MCHC 30.8 g/dL (30.0-36.0) 05/03/22 13:22 RDW 13.6 % (12.1-15.1) 05/03/22 13:22 Plt Count 182 10^3/cmm (130-400) 05/03/22 13:22 MPV 10.2 fL (7.4-10.4) 05/03/22 13:22 Neut % (Auto) 62.8 % 05/03/22 13:22 Lymph % (Auto) 24.2 % 05/03/22 13:22 [place] % (Auto) 10.1 % 05/03/22 13:22 Eos % (Auto) 2.5 % 05/03/22 13:22 Baso % (Auto) 0.0 % 05/03/22 13: Neut # (Auto) 4.83 10^3/uL (1.8-7.7) 05/03/22 13: Lymph # (Auto) 1.9 10^3/uL (0.8-4.8) 05/03/22 13:22 [place] # (Auto) 0.8 10^3/uL (0.2-0.9) 05/03/22 13:22 Eos # (Auto) 0.2 10^3/uL (0.0-0.8) 05/03/22 13:22 Baso # (Auto) 0.0 10^3/uL (0.0-0.1) 05/03/22 13: Nucleated RBC % (auto) 0 % 05/03/22 13:22 Nucleated RBCs # 0.0 /100WBC 05/03/22 13:22 Sodium 138 mmol/L (136-145) 05/03/22 13:22 Potassium 4.2 mmol/L (3.5-5.1) 05/03/22 13:22 Chloride 106 mmol/L (98-107) 05/03/22 13:22 Carbon Dioxide 23 mmol/L (22-29) 05/03/22 13:22 Anion Gap 13.2 (5-19) 05/03/22 13:22 BUN 18 mg/dL (8-23) 05/03/22 13:22 Creatinine 0.8 mg/dL (0.5-0.9) 05/03/22 13:22 GFR Calculation Not Reportable 05/03/22 13:22 Glucose 106 mg/dL (65-115) 05/03/22 13:22 Calculated Osmolality 288 mOsm/kg (285-295) 05/03/22 13:22 Calcium 8.4 mg/dL (8.5-10.5) L 05/03/22 13:22 Total Bilirubin 1.1 mg/dL (0.15-1.2) 05/03/22 13:22 AST 20 U/L (0-32) 05/03/22 13:22 ALT 16 U/L (0-33) 05/03/22 13:22 Alkaline Phosphatase 72 U/L (35-105) 05/03/22 13:22 NT-Pro-B Natriuret Pep 1207 pg/mL (0-450) H 05/03/22 13:22 Total Protein 6.1 g/dL (6.6-8.7) L 05/03/22 13:22 Albumin 3.2 g/dL (3.5-5.2) L 05/03/22 13:22 Globulin 2.9 g/dL (1.3-4.6) 05/03/22 13:22 EKG Data EKG 1: I personally reviewed and interpreted this EKG as follows: EKG Interpretation Date: 05/03/22 EKG interpretation time: : Prior EKG tracings: not available for review Interpretation: EKG performed today showed ventricular rate of 76 bpm with a rhythm of A-fib, borderline right axis deviation, possible right anterior myocardial infarction probably old with Q waves in V3 and V4, QRS duration of 90 QTc of 420 Discharge Plan Discharge Patient Disposition: Home Clinical Impression: Edema Congestive heart failure Qualifiers: Heart failure type: unspecified Heart failure chronicity: chronic Qualified Code(s): I50.9 - Heart failure, unspecified Condition: Stable Prescriptions: New bumetanide 1 mg tablet 1 mg PO BID Qty: 6 0RF No Action potassium chloride [Klor-Con 8] 8 mEq tablet extended release 8 meq PO DAILY Qty: 30 1RF Entresto 24-26 mg tablet 1 tab PO BID Qty: 60 3RF clopidogrel 75 mg tablet 75 mg PO DAILY Qty: 90 3RF ezetimibe [Zetia] 10 mg tablet 10 mg PO DAILY Qty: 90 3RF metoprolol tartrate 50 mg tablet 125 mg PO DIRECTED Qty: 270 3RF Rx Instructions: 75mg (1.5 tabs) in AM and 50mg (1 tab) in PM furosemide 40 mg tablet 40 mg PO DAILY Qty: 30 4RF oxybutynin chloride 10 mg tablet extended release 24hr 10 mg PO BEDTIME PRN nitroglycerin 0.4 mg Tablet, Sublingual 0.4 mg sublingual Q5M PRN (Reason: Chest Pain) 9 Days Qty: 25 3RF Discharge Orders: Discharge ED (Routine); Ordered 05/03/22 Ordered By: Reji Wang Referrals: Jessica Fraser DO [Primary Care Provider] - 1 week Discharge Diet: Low Salt Discharge Activity: Increase activity as tolerated Patient Instructions: Heart Failure (DC), Edema (ED) Coding Level of Care Code ED Registered Dental Assistant Rda for Graham Gutierres
--- NOTE | 2022-05-03 13:23 | ECG_ITS ---
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 Measurements Intervals [place] Rate: 76 P: 0 NV: 0 QRS: 92 QRSD: 90 T: 58 QT: 390 QTc: 439 Interpretive Statements ATRIAL FIBRILLATION BORDERLINE RIGHT AXIS DEVIATION [QRS AXIS > 90] LOW QRS VOLTAGE IN PRECORDIAL LEADS [QRS DEFLECTION < 1.0 mV IN CHEST LEADS] POSSIBLE ANTERIOR MYOCARDIAL INFARCTION , PROBABLY OLD [30 ms Q WAVE IN V3/V4, OR R < 0.2 mV IN V4] ABNORMAL RHYTHM ECG Compared to ECG 03/28/2022 03:51:13 No significant changes Electronically Signed On 05-03-2022 19:40:53 CDT by Yimi Paz M.D. [id number]
[2022-05-03 13:40] LABS: Eosinophils # 0.2 10^3/uL (0.0-0.8); Eosinophils % 2.5 %; Hematocrit 37.7 % (37.0-47.0); Hemoglobin 11.6 g/dL (11.5-15.3); Lymphocytes # 1.9 10^3/uL (0.8-4.8); Lymphocytes % 24.2 %; Mean Corpuscular HGB Conc 30.8 g/dL (30.0-36.0); Mean Corpuscular Hemoglobin 29.8 pg (28.0-34.0); Mean Corpuscular Volume 96.9 fl (81-99); Mean Platelet Volume 10.2 fL (7.4-10.4); Monocytes # 0.8 10^3/uL (0.2-0.9); Monocytes % 10.1 %; Neutrophils # 4.83 10^3/uL (1.8-7.7); Neutrophils % 62.8 %; Nucleated Red Blood Cells % 0 %; Platelet Count 182 10^3/cmm (130-400); Red Blood Count 3.89 10^6/uL (4.1-5.3); Red Cell Distribution Width 13.6 % (12.1-15.1); White Blood Count 7.7 10^3/uL (4.0-10.0)
[2022-05-03 13:59] LABS: Alanine Aminotransferase 16 U/L (0-33); Albumin Level 3.2 g/dL (3.5-5.2); Alkaline Phosphatase 72 U/L (35-105); Blood Urea Nitrogen 18 mg/dL (8-23); Calcium 8.4 mg/dL (8.5-10.5); Carbon Dioxide 23 mmol/L (22-29); Chloride 106 mmol/L (98-107); Globulin 2.9 g/dL (1.3-4.6); Glucose 106 mg/dL (65-115); NT Pro B Type Natriuretic Pept 1207 pg/mL (0-450); Osmolality Calculated 288 mOsm/kg (285-295); Sodium 138 mmol/L (136-145); Total Bilirubin 1.1 mg/dL (0.15-1.2); Total Protein 6.1 g/dL (6.6-8.7)
[2022-05-03 14:05] LABS: Anion Gap 13.2 (5-19); Aspartate Amino Transferase 20 U/L (0-32); Potassium 4.2 mmol/L (3.5-5.1)
[2022-05-03] MEDS: FUROsemide 10 mg/mL SDV 4mL 40 MG IVP (14:53)
== END 2022-05-03 14:55 | disposition home or self-care (01) ==
PROVIDERS: Emergency Provider Emergency Medicine; PCP Family Medicine
DX: I11.0 Hypertensive heart disease with heart failure (principal); I50.9 Heart failure, unspecified; R60.9 Edema, unspecified; Z79.02 Long term (current) use of antithrombotics/antiplatelets; Z87.891 Personal history of nicotine dependence; I25.10 Atherosclerotic heart disease of native coronary artery without angina pectoris
CPT/HCPCS: 36415; 71045; 80053; 83880; 85025; 93005; 96374; 99285; J1940

== ENCOUNTER 2022-05-18 10:15 | Observation (INO) | payer MEDICARE, SELFPAY ==
[2022-05-18] VITALS (20 sets, daily range): BP systolic 86–110; BP diastolic 39–67; PULSE 78–98; RESP 16–24; TEMP 36.4–36.8; O2SAT 97–100; BMI 37.6
--- NOTE | 2022-05-18 10:16 | XRR_ITS ---
PROCEDURE INFORMATION: Exam: XR Chest Exam date and time: 05/18/2022 10:52 AM Age: 81 years old Clinical indication: Cough and dyspnea; Additional info: Dyspnea/cough TECHNIQUE: Imaging protocol: Radiologic exam of the chest. Views: 1 view. COMPARISON: CR (CHEST, ) 05/03/2022 1:17 PM FINDINGS: Lungs: Streaky bibasilar atelectasis noted. No consolidation. Pleural spaces: Unremarkable. No pleural effusion. No pneumothorax. Heart/Mediastinum: Stable cardiomediastinal silhouette. Bones/joints: Degenerative changes of the spine seen. XR/XR chest 1V portable [id number] IMPRESSION: No acute findings.
--- NOTE | 2022-05-18 10:27 | ECG_ITS ---
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 Measurements Intervals [place] Rate: 84 P: 0 DC: 0 QRS: 52 QRSD: 84 T: 64 QT: 353 QTc: 419 Interpretive Statements ATRIAL FIBRILLATION LOW QRS VOLTAGE IN PRECORDIAL LEADS [QRS DEFLECTION < 1.0 mV IN CHEST LEADS] POSSIBLE ANTERIOR MYOCARDIAL INFARCTION , PROBABLY OLD [30 ms Q WAVE IN V3/V4, OR R < 0.2 mV IN V4] ABNORMAL RHYTHM ECG Compared to ECG 05/03/2022 13:23:15 No significant changes Electronically Signed On 05-18-2022 19:29:35 CDT by Don Romero M.D. [id number]
--- NOTE | 2022-05-18 10:30 | ED_ITS ---
HPI - SOB/Dyspnea General: Chief Complaint: Shortness of Breath/Dyspnea Stated Complaint: cough/sob Time Seen by Provider: 05/18/22 10:16 Source: patient Mode of arrival: EMS History of Present Illness: HPI Narrative: 81-year-old female presents emergency complaining shortness of breath with exertion. Is been going on the last 2 days has been worse today. Patient is moderately tachypneic at rest but maintains O2 sats in the upper 90 percentile 3 has a history of atrial fibrillation congestive heart failure has had orthopnea for long period of time has not particularly noticed it is gotten worse she also has chronic swelling in her legs states little bit more persistent than usual. She denies any chest pain at this time no fevers today or chills or productive cough. MD elicited complaint: shortness of breath and cough Pertinent past history: congestive heart failure Onset (ago): day(s) (2) Timing: constant Severity: moderate Exacerbating factors: lying flat, exertion and coughing Relieving factors: rest and upright position Known history of: congestive heart failure Associated symptoms: Reports orthopnea and palpitations; Deny abdominal pain, chest congestion, chest pain, cough, diaphoresis, dizziness, extremity pain, fever(s), hemoptysis, lightheadedness, myalgias, nausea, paresthesias, polydipsia, polyuria, rash, sense of impending doom, syncope, vomiting or other Review of Systems Const: Denies: fever(s) or diaphoresis Card: Reports: palpitations, irregular heart rhythm, edema, swelling of feet/ankles and orthopnea; Denies: chest pain, lightheadedness or syncope Resp: Reports: dyspnea and non-productive cough; Denies: hemoptysis or chest congestion GI: Denies: abdominal pain, nausea or vomiting Musc: Denies: extremity pain Neuro: Denies: dizziness Endo: Denies: polyuria or polydipsia PFSH ED PFSH: Medical History Acne rosacea 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 Atrial fibrillation BMI 37.0-37.9, adult Borderline hyperglycemia CAD (coronary artery disease) COVID-19 (08/2020) 0 Hypertension Seasonal allergies Statin intolerance Urinary incontinence Surgical History History of appendectomy Family History Brother Stroke Sister Stroke Father Stroke CAD (coronary artery disease) Mother Stroke Diabetes Social History Smoking and tobacco status: never smoked Quit status (tobacco): has quit using tobacco Former quit date comment: 50 years ago, smoked less than a year Alcohol intake: never Lives independently: Yes Physical Exam Const: GENERAL APPEARANCE: cooperative and comfortable ORIENTATION/CONSCIOUSNESS: Yes awake, Yes oriented to person, Yes oriented to place and Yes oriented to time HENMT: COMMON NORMALS: normocephalic, atraumatic and hearing grossly normal bi laterally HEAD & SCALP: normocephalic and atraumatic Resp: COMMON NORMALS: normal respiratory effort, No retractions, No use of accessory muscles and clear to auscultation bilaterally AUSCULTATION: clear to auscultation bilaterally Cardio: COMMON NORMALS: regular rate RATE: regular rate RHYTHM: abnormal rhythm irregularly irregular GI: COMMON NORMALS: Soft to palpation and No hepatosplenomegaly present AUSCULTATION: Yes normoactive bowel sounds PALPATION: Yes Soft to palpation, No Tenderness to palpation present (GI), No Guarding due to palpation present (GI) and Yes No hepatosplenomegaly present RECTAL EXAM: Abnormal stool present black stool and heme positive stool Extremity: COMMON NORMALS: normal to inspection, capillary refill normal and no calf tenderness Neuro: SENSORIUM/ORIENTATION: Yes oriented to person, Yes oriented to place and Yes oriented to time Skin: COMMON NORMALS: no rashes or lesions noted GENERAL SKIN EXAM: no rashes or lesions noted Course Vital Signs: Vital signs: Vital Signs Pulse Rate 97 05/18/22 11:30 Respiratory Rate 23 H 05/18/22 10:25 Blood Pressure 110/50 05/18/22 11:30 Pulse Oximetry 100 05/18/22 11:30 Oxygen Delivery Me thod 05/18/22 10:25 MDM - SOB/Dyspnea Medical Decision Making Patient is upper GI bleed BUN is mildly elevated creatinine normal. Hemoglobin is down to 6 a we have ordered blood her last echocardiogram showed a 60% ejection fraction with some apical and septal hypokinesis. She had a stent in October or November and is still on her Plavix is not on any proton pump inhibitor. Rectal exam done at the bedside Hemoccult card was sharply positive. Discussed with Dr. Lassiter he is contacting Dr. Deng. Medical Records I reviewed the patient's medical records. Lab Data I reviewed the patient's lab results. 05/18/22 11:18 05/18/22 11:18 Labs/Radiology: Radiology Impressions Chest X-Ray 05/18/22 10:16 IMPRESSION: No acute findings. Laboratory Results WBC 9.0 10^3/uL (4.0-10.0) 05/18/22 11:18 RBC 2.19 10^6/uL (4.1-5.3) L 05/18/22 11:18 Hgb 6.8 g/dL (11.5-15.3) L 05/18/22 11:18 Hct 22.3 % (37.0-47.0) L 05/18/22 11:18 MCV 101.8 fl (81-99) H 05/18/22 11:18 MCH 31.1 pg (28.0-34.0) 05/18/22 11:18 MCHC 30.5 g/dL (30.0-36.0) 05/18/22 11:18 RDW 16.9 % (12.1-15.1) H 05/18/22 11:18 Plt Count 207 10^3/cmm (130-400) 05/18/22 11:18 MPV 9.8 fL (7.4-10.4) 05/18/22 11:18 Neut % (Auto) 72.0 % 05/18/22 11:18 Lymph % (Auto) 19.3 % 05/18/22 11:18 [place] % (Auto) 7.2 % 05/18/22 11:18 Eos % (Auto) 1.2 % 05/18/22 11:18 Baso % (Auto) 0.0 % 05/18/22 11:18 Neut # (Auto) 6.48 10^3/uL (1.8-7.7) 05/18/22 11:18 Lymph # (Auto) 1.7 10^3/uL (0.8-4.8) 05/18/22 11:18 [place] # (Auto) 0.7 10^3/uL (0.2-0.9) 05/18/22 11:18 Eos # (Auto) 0.1 10^3/uL (0.0-0.8) 05/18/22 11:18 Baso # (Auto) 0.0 10^3/uL (0.0-0.1) 05/18/22 11:18 Nucleated RBC % (auto) 0 % 05/18/22 11:18 Nucleated RBCs # 0.0 /100WBC 05/18/22 11:18 Sodium 140 mmol/L (136-145) 05/18/22 11:18 Potassium 4.2 mmol/L (3.5-5.1) 05/18/22 11:18 Chloride 107 mmol/L (98-107) 05/18/22 11:18 Carbon Dioxide 22 mmol/L (22-29) 05/18/22 11:18 Anion Gap 15.2 (5-19) 05/18/22 11:18 BUN 25 mg/dL (8-23) H 05/18/22 11:18 Creatinine 0.9 mg/dL (0.5-0.9) 05/18/22 11:18 GFR Calculation Not Reportable 05/18/22 11:18 Glucose 128 mg/dL (65-115) H 05/18/22 11:18 Calculated Osmolality 296 mOsm/kg (285-295) H 05/18/22 11:18 Calcium 7.9 mg/dL (8.5-10.5) L 05/18/22 11:18 Total Bilirubin 1.0 mg/dL (0.15-1.2) 05/18/22 11:18 AST 13 U/L (0-32) 05/18/22 11:18 ALT 10 U/L (0-33) 05/18/22 11:18 Alkaline Phosphatase 56 U/L (35-105) 05/18/22 11:18 Troponin T Baseline 11 ng/L (0-10) H 05/18/22 11:18 NT-Pro-B Natriuret Pep 686 pg/mL (0-450) H 05/18/22 11:18 Total Protein 5.2 g/dL (6.6-8.7) L 05/18/22 11:18 Albumin 3.4 g/dL (3.5-5.2) L 05/18/22 11:18 Globulin 1.8 g/dL (1.3-4.6) 05/18/22 11:18 Discharge Plan Discharge Patient Disposition: Admitted As Inpatient Clinical Impression: Acute upper GI bleed, Hx of coronary artery disease Condition: Stable Prescriptions: No Action potassium chloride [Klor-Con 8] 8 mEq tablet extended release 8 meq PO DAILY Qty: 30 1RF clopidogrel 75 mg tablet 75 mg PO DAILY Qty: 90 3RF ezetimibe [Zetia] 10 mg tablet 10 mg PO DAILY Qty: 90 3RF metoprolol tartrate 50 mg tablet 125 mg PO DIRECTED Qty: 270 3RF Rx Instructions: 75mg (1.5 tabs) in AM and 50mg (1 tab) in PM furosemide 40 mg tablet 40 mg PO DAILY Qty: 30 4RF Entresto 24-26 mg tablet 2 tab PO BID Qty: 120 3RF oxybutynin chloride 10 mg tablet extended release 24hr 10 mg PO BEDTIME PRN (Reason: Bladder Spasms) nitroglycerin 0.4 mg Tablet, Sublingual 0.4 mg sublingual Q5M PRN (Reason: Chest Pain) 9 Days Qty: 25 3RF atorvastatin 40 mg tablet 40 mg PO BEDTIME Referrals: Jessica Fraser DO [Primary Care Provider] - Patient Instructions: Opioid Safety, Pain Management Coding Level of Care Code ED Patient Care Technician Instructor for Graham Gutierres
[2022-05-18 11:23] LABS: Eosinophils # 0.1 10^3/uL (0.0-0.8); Eosinophils % 1.2 %; Hematocrit 22.3 % (37.0-47.0); Hemoglobin 6.8 g/dL (11.5-15.3); Lymphocytes # 1.7 10^3/uL (0.8-4.8); Lymphocytes % 19.3 %; Mean Corpuscular HGB Conc 30.5 g/dL (30.0-36.0); Mean Corpuscular Hemoglobin 31.1 pg (28.0-34.0); Mean Corpuscular Volume 101.8 fl (81-99); Mean Platelet Volume 9.8 fL (7.4-10.4); Monocytes # 0.7 10^3/uL (0.2-0.9); Monocytes % 7.2 %; Neutrophils # 6.48 10^3/uL (1.8-7.7); Nucleated Red Blood Cells % 0 %; Platelet Count 207 10^3/cmm (130-400); Red Blood Count 2.19 10^6/uL (4.1-5.3); Red Cell Distribution Width 16.9 % (12.1-15.1)
--- NOTE | 2022-05-18 11:35 | CTR_ITS ---
PROCEDURE INFORMATION: Exam: CT Abdomen And Pelvis Without Contrast Exam date and time: 05/18/2022 12:38 PM Age: 81 years old Clinical indication: Abdominal pain; Generalized TECHNIQUE: Imaging protocol: Computed tomography of the abdomen and pelvis without contrast. Axial, coronal and sagittal reformatted images were created and reviewed. Radiation optimization: All CT scans at this facility use at least one of these dose optimization techniques: automated exposure control; mA and/or kV adjustment per patient size (includes targeted exams where dose is matched to clinical indication); or iterative reconstruction. REPORTING DATA: Count of CT and Cardiac NM exams in prior 12 months: This patient has received 2 known CTs and 0 known cardiac nuclear medicine studies in the 12 months prior to the current study. COMPARISON: CT angio chest PE protcl [id number] 09/11/2020 4:22 PM RADIATION DOSE METRICS: Total DLP (mGy-cm): 772.21 FINDINGS: Lungs: Linear stranding and groundglass at the lung bases, likely due to atelectasis and/or scarring. Pleural spaces: Small right pleural effusion. Heart: Mild cardiomegaly. Diaphragm: Small hiatal hernia. Liver: Unremarkable. Gallbladder and bile ducts: No radiodense gallstones. No biliary ductal dilatation. Pancreas: Unremarkable. Spleen: Unremarkable. Adrenal glands: Normal. No mass. Kidneys and ureters: No mass. No radiodense calculi. No hydronephrosis. Stomach and bowel: Questionable mild duodenal and jejunal wall thickening. Colonic diverticulosis without evidence of diverticulitis. No obstruction. No pneumatosis. Appendix: Appendix not identified with certainty but no right lower quadrant inflammatory change to suggest acute appendicitis. Intraperitoneal space: No free fluid. No organized fluid collection. No free air. Vasculature: Mild atherosclerotic disease. No aneurysm. Lymph nodes: No pathologically enlarged lymph nodes. Urinary bladder: Unremarkable as visualized. Reproductive: Unremarkable. Bones/joints: No acute osseous abnormality. Osteopenia. Degenerative changes. Soft tissues: Small, fat containing umbilical hernia. CT/CT abdomen pelvis wo con [id number] IMPRESSION: 1. Questionable mild duodenal and jejunal wall thickening. Mild nonspecific enteritis could produce this appearance. 2. Cardiomegaly and small right pleural effusion. 3. Additional findings, as above.
[2022-05-18 11:45] LABS: Troponin(5th) Baseline 11 ng/L (0-10)
[2022-05-18 11:58] LABS: Alanine Aminotransferase 10 U/L (0-33); Albumin Level 3.4 g/dL (3.5-5.2); Alkaline Phosphatase 56 U/L (35-105); Anion Gap 15.2 (5-19); Aspartate Amino Transferase 13 U/L (0-32); Blood Urea Nitrogen 25 mg/dL (8-23); Calcium 7.9 mg/dL (8.5-10.5); Carbon Dioxide 22 mmol/L (22-29); Chloride 107 mmol/L (98-107); Globulin 1.8 g/dL (1.3-4.6); Glucose 128 mg/dL (65-115); NT Pro B Type Natriuretic Pept 686 pg/mL (0-450); Osmolality Calculated 296 mOsm/kg (285-295); Potassium 4.2 mmol/L (3.5-5.1); Sodium 140 mmol/L (136-145); Total Protein 5.2 g/dL (6.6-8.7)
--- NOTE | 2022-05-18 12:27 | ECG_ITS ---
[facility] Test Date: 2022-05-18 Pat Name: Laura Rodriguez Department: Room: Gender: Female Crnp: : 1940 Requested By: Tyson Graf Order Number: [id number] Valentino MD: Don Romero M.D. Measurements Intervals [place] Rate: 91 P: 0 MD: 0 QRS: 81 QRSD: 84 T: 35 QT: 360 QTc: 444 Interpretive Statements ATRIAL FIBRILLATION LOW QRS VOLTAGE IN PRECORDIAL LEADS [QRS DEFLECTION < 1.0 mV IN CHEST LEADS] POSSIBLE ANTERIOR MYOCARDIAL INFARCTION , PROBABLY OLD [30 ms Q WAVE IN V3/V4, OR R < 0.2 mV IN V4] ABNORMAL RHYTHM ECG Compared to ECG 05/03/2022 13:23:15 No significant changes Electronically Signed On 05-18-2022 19:30:19 CDT by Don Romero M.D. [id number]
[2022-05-18] MEDS: pantoprazole 40 mg SDV IVP (13:02)
--- NOTE | 2022-05-18 13:18 | P.HP_ITS ---
Providers/Chief Complaint Admitting Physician: Trav Lassiter MD Primary Care Provider: Jessica Fraser DO Chief Complaint: cough/sob History of Present Illness Laura Rodriguez is a 81 year old female who presents to the emergency department with complaints of black stools for the last several weeks, along with shortness of breath over her norm. She reports she has had more swelling than usual ever since a coronary stent in November. She reports no nausea, vomiting, dysphagia, bright red blood in her stool. She denies any anti-inflammatory use. She is on both Plavix and Xarelto and her last dose of Xarelto was yesterday afternoon. She denies any chest discomfort. She has not been ill lately with any fever or cough. No abdominal pain. In the emergency department a stool Hemoccult done was positive, with black stool. 2 units of packed red blood cells were ordered. Protonix was ordered. Review of Systems General: Reports: 10 or more systems reviewed and unremarkable except in HPI and below Const: Reports: fatigue; Denies: fever(s) or chills Card: Reports: swelling of feet/ankles; Denies: chest pain Resp: Reports: dyspnea GI: Reports: melena; Denies: abdominal pain, nausea, vomiting or hematochezia Medications/Allergies Home Medications Medication Instructions Recorded Confirmed Last Taken Type nitroglycerin 0.4 mg sublingual 0.4 mg sublingual Q5M PRN Chest 12/14/21 05/18/22 Unknown Rx tablet Pain 9 days #25 tabs potassium chloride 8 mEq 8 meq PO DAILY #30 tabs 03/02/22 05/18/22 Unknown Rx tablet,extended release (Klor-Con) oxybutynin chloride 10 mg 10 mg PO BEDTIME PRN Bladder Spasms 03/04/22 05/18/22 Unknown History tablet,extended release 24 hr clopidogrel 75 mg tablet 75 mg PO DAILY #90 tabs 03/09/22 05/18/22 Unknown Rx ezetimibe 10 mg tablet (Zetia) 10 mg PO DAILY #90 tabs 03/09/22 05/18/22 Unknown Rx metoprolol tartrate 50 mg tablet 125 mg PO DIRECTED #270 tabs 04/07/22 05/18/22 Unknown Rx furosemide 40 mg tablet 40 mg PO DAILY #30 tabs 04/22/22 05/18/22 Unknown Rx sacubitril 24 mg-valsartan 26 mg 2 tab PO BID #120 tabs 05/08/22 05/18/22 Unknown Rx tablet (Entresto) atorvastatin 40 mg tablet 40 mg PO BEDTIME 05/18/22 05/18/22 Unknown History rivaroxaban 20 mg tablet (Xarelto) 20 mg PO DAILY 05/18/22 05/18/22 Unknown His tory Allergies Allergy/AdvReac Type Severity Reaction Status Date / Time No Known Allergies Allergy Verified 05/03/22 12:47 PFSH Acute PFSH: Medical History (Updated 05/18/22 @ 14:05 by Trav Lassiter MD) Acne rosacea 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 Atrial fibrillation BMI 37.0-37.9, adult Borderline hyperglycemia CAD (coronary artery disease) COVID-19 (08/2020) 0 History of CVA (cerebrovascular accident) Hypertension Seasonal allergies Statin intolerance Systolic CHF with reduced left ventricular function, NYHA class 3 Urinary incontinence Surgical History (Updated 05/18/22 @ 13:21 by Trav Lassiter MD) H/O coronary angiogram LAD stent November 2021 History of appendectomy Family History Brother Stroke Sister Stroke Father Stroke CAD (coronary artery disease) Mother Stroke Diabetes Social History Smoking and tobacco status: never smoked Quit status (tobacco): has quit using tobacco Former quit date comment: 50 years ago, smoked less than a year Alcohol intake: never Lives independently: Yes Vitals/I&O/Wt Last Vital Signs Pulse 97 05/18/22 11:30 Resp 23 H 05/18/22 10:25 BP 110/50 05/18/22 11:30 Pulse Ox 100 05/18/22 11:30 O2 Del Method 05/18/22 10:25 Weight last 48 hrs Weight 81.647 kg Physical Exam Narrative: General exam is no distress HEENT: Atraumatic normocephalic. Oropharynx clear Neck is supple no lymphadenopathy thyromegaly Cardiovascular regular rate and rhythm, no murmur Lungs clear no wheezing or crackles Abdomen is soft nontender positive bowel sounds. Difficult to estimate any organomegaly exams deferred Extremities 2+ edema bilaterally. No cyanosis or clubbing Skin no rash Neuro no obvious focal deficits Data 05/18/22 11:18 05/18/22 11:18 Other Labs: Calcium 7.9, LFTs normal, troponin 11, BNP 686, albumin 3.4 Chest x-ray demonstrates no obvious infiltrate, cardiomegaly by my read CT abdomen and pelvis demonstrates question mild duodenal and jejunal thickening, cardiomegaly, small right effusion EKG demonstrates atrial fibrillation, normal axis, nonspecific ST-T wave changes. I reviewed this personally. A&P Assessment and plan (1) Acute upper GI bleed: Patient presents with symptoms of black stool, most consistent with an acute upper GI blood loss. She is on both Plavix and Xarelto, which will be held. She will need to restart the Plavix as soon as possible secondary to LAD stent placed in November 2021 she received a dose of Protonix in the emergency department. We will continue Protonix 40 mg IV every 12 hours 2 units of packed red blood cells have been ordered through the emergency department. Will check a hemoglobin and hematocrit following transfusion, and then determine how often serial hemoglobin needs to be checked Surgery consult for possible endoscopy, n.p.o. after midnight. Certainly CBC and BMP in the morning Plavix, Xarelto must be held currently secondary to acute blood loss anemia. Risks discussed with the patient. Avoid IV fluids currently as blood pressure is stable and she has evidence of fluid overload on exam. (2) Acute blood loss anemia: Patient with evidence of acute blood loss anemia as above. See notation above. (3) CAD (coronary artery disease): Patient with history of coronary disease and stenting of the LAD in November 2021 . Last echo demonstrated normal EF. Hold anticoagulation. May continue statin, Lasix, beta-avis, Entresto (4) Systolic CHF with reduced left ventricular function, NYHA class 3: Has some evidence of acute systolic heart failure Lasix 40 mg IV between first and second unit Continue Entresto, beta-avis Will evaluate need for further Lasix dosing tomorrow morning (5) History of CVA (cerebrovascular accident): Patient with history of CVA. Currently on Xarelto secondary to history of atrial fibrillation. Must hold secondary to GI bleeding with significant symptomatic anemia. Restart as soon as possible. Plan Atrial fibrillation, currently rate controlled. Holding anticoagulation but w ill continue beta-avis for rate control Multiple other medical problems as outlined in past medical history Full code currently SCDs for DVT prophylaxis. Anticoagulation contraindicated secondary to GI bleeding Attestations Medical Necessity Statement*: Will require greater than 2 midnight stay for e valuation and treatment of GI bleeding, acute blood loss anemia requiring transfusion Diagnoses Acute upper GI bleed K92.2 Acute blood loss anemia D62 CAD (coronary artery disease) I25.10 Systolic CHF with reduced left ventricular function, NYHA class 3 I50.20 History of CVA (cerebrovascular accident) Z86.73 Time Spent (min) 43
[2022-05-18 13:26] LABS: Troponin 5 2HR 9.45 ng/L (0-10)
[2022-05-18 13:40] LABS: Troponin 5 2HR Delta -1.55 ABS# (0-10)
--- NOTE | 2022-05-18 16:27 | ECG_ITS ---
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 Measurements Intervals [place] Rate: 91 P: 0 MT: 0 QRS: 63 QRSD: 90 T: 32 QT: 383 QTc: 473 Interpretive Statements ATRIAL FIBRILLATION LOW QRS VOLTAGE [QRS DEFLECTION < 0.5/1.0 mV IN LIMB/CHEST LEADS] POSSIBLE ANTERIOR MYOCARDIAL INFARCTION , PROBABLY OLD [30 ms Q WAVE IN V3/V4, OR R < 0.2 mV IN V4] Compared to ECG 05/18/2022 12:47:44 No significant changes Electronically Signed On 05-18-2022 19:30:00 CDT by Don Romero M.D. [id number]
[2022-05-18] MEDS: FUROsemide 10 mg/mL SDV 4mL 40 MG IVP (20:00)
[2022-05-18] MEDS: sacubitril/valsartan 24-26 mg Tablet 2 EACH PO (20:14)
[2022-05-18] MEDS: atorvastatin 40 mg Tablet PO (20:14)
[2022-05-18 21:59] LABS: Troponin 5 6HR 11.08 ng/L (0-10)
[2022-05-18 22:01] LABS: Troponin 5 6HR Delta 0.08 ng/L (0-12)
[2022-05-19] VITALS (12 sets, daily range): BP systolic 97–125; BP diastolic 46–77; PULSE 90–110; RESP 15–22; TEMP 36.2–36.8; O2SAT 97–99
[2022-05-19] MEDS: pantoprazole 40 mg SDV IVP (00:17)
[2022-05-19 01:30] LABS: Eosinophils # 0.1 10^3/uL (0.0-0.8); Eosinophils % 1.2 %; Hematocrit 29.4 % (37.0-47.0); Lymphocytes # 2.4 10^3/uL (0.8-4.8); Lymphocytes % 27.4 %; Mean Corpuscular HGB Conc 30.6 g/dL (30.0-36.0); Mean Corpuscular Hemoglobin 29.5 pg (28.0-34.0); Mean Corpuscular Volume 96.4 fl (81-99); Mean Platelet Volume 9.9 fL (7.4-10.4); Monocytes # 0.7 10^3/uL (0.2-0.9); Monocytes % 7.9 %; Neutrophils # 5.58 10^3/uL (1.8-7.7); Neutrophils % 63.2 %; Nucleated Red Blood Cells % 0 %; Platelet Count 193 10^3/cmm (130-400); Red Blood Count 3.05 10^6/uL (4.1-5.3); Red Cell Distribution Width 19.2 % (12.1-15.1); White Blood Count 8.8 10^3/uL (4.0-10.0)
[2022-05-19 01:47] LABS: Alanine Aminotransferase 9 U/L (0-33); Alkaline Phosphatase 49 U/L (35-105); Anion Gap 15.7 (5-19); Aspartate Amino Transferase 13 U/L (0-32); Blood Urea Nitrogen 21 mg/dL (8-23); Calcium 7.9 mg/dL (8.5-10.5); Carbon Dioxide 18 mmol/L (22-29); Chloride 111 mmol/L (98-107); Globulin 1.9 g/dL (1.3-4.6); Glucose 122 mg/dL (65-115); Magnesium 2.2 mg/dL (1.7-2.3); Osmolality Calculated 296 mOsm/kg (285-295); Potassium 3.7 mmol/L (3.5-5.1); Sodium 141 mmol/L (136-145); Total Protein 4.9 g/dL (6.6-8.7)
--- NOTE | 2022-05-19 07:31 | PC.NURSE ---
pt off floor at this time to GI lab for scheduled procedure, report given to receiving nurse.
[2022-05-19] MEDS: sodium chloride 0.9% 1,000 ML 30 ML IV (07:58)
--- NOTE | 2022-05-19 08:24 | PM.CONSULT ---
Providers/Reason For Consult Consulting Physician/Specialty*: Dr. Rush Deng DO/General surgery Reason for Consult*: Melena Attending Physician: Trav Lassiter MD Primary Care Provider: Jessica Fraser DO History of Present Illness History of Present Illness Laura Rodriguez is a 81 year old female, who is on Plavix for coronary artery disease and Xarelto for A-fib, presented to the hospital with a few weeks of black stools and weakness. She denies any abdominal pain, nausea, emesis, diarrhea, constipation, hematochezia. She denies any heartburn. She was found to be anemic in the ER and received transfusions of PRBCs. Review of Systems General: Reports: 10 or more systems reviewed and unremarkable except in HPI and below Medications/Allergies Home Medications Medication Instructions Recorded Confirmed Last Taken Type nitroglycerin 0.4 mg sublingual 0.4 mg sublingual Q5M PRN Chest 12/14/21 05/18/22 Unknown Rx tablet Pain 9 days #25 tabs potassium chloride 8 mEq 8 meq PO DAILY #30 tabs 03/02/22 05/18/22 Unknown Rx tablet,extended release (Klor-Con) oxybutynin chloride 10 mg 10 mg PO BEDTIME PRN Bladder Spasms 03/04/22 05/18/22 Unknown History tablet,extended release 24 hr clopidogrel 75 mg tablet 75 mg PO DAILY #90 tabs 03/09/22 05/18/22 Unknown Rx ezetimibe 10 mg tablet (Zetia) 10 mg PO DAILY #90 tabs 03/09/22 05/18/22 Unknown Rx metoprolol tartrate 50 mg tablet 125 mg PO DIRECTED #270 tabs 04/07/22 05/18/22 Unknown Rx furosemide 40 mg tablet 40 mg PO DAILY #30 tabs 04/22/22 05/18/22 Unknown Rx sacubitril 24 mg-valsartan 26 mg 2 tab PO BID #120 tabs 05/08/22 05/18/22 Unknown Rx tablet (Entresto) atorvastatin 40 mg tablet 40 mg PO BEDTIME 05/18/22 05/18/22 Unknown History rivaroxaban 20 mg tablet (Xarelto) 20 mg PO DAILY 05/18/22 05/18/22 Unknown History Allergies Allergy/AdvReac Type Severity Reaction Status Date / Time No Known Allergies Allergy Verified 05/03/22 12:47 Current Medications Generic Name Dose Route Start Last Admin Trade Name Irineo PRN Reason Stop Dose Admin Atorvastatin Calcium 40 mg 05/18/22 21:00 05/18/22 20:14 Atorvastatin 40 Mg Tablet PO 40 mg BEDTIME SURESH Administration Sodium Chloride 1,000 mls @ 30 mls/hr 05/19/22 07:45 05/19/22 07:58 Sodium Chloride 0.9% IV 05/20/22 07:44 30 mls/hr .Q24H SURESH Administration Pantoprazole Sodium 40 mg 05/18/22 23:00 05/19/22 00:17 Pantoprazole 40 Mg Sdv IVP 40 mg Q12H SURESH Administration Sacubitril/Valsartan 2 each 05/18/22 18:00 05/18/22 20:14 Sacubitril/Valsartan 24-26 Mg Tablet PO 2 each BID SURESH Administration PFSH Acute PFSH: Medical History Acne rosacea 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 Atrial fibrillation BMI 37.0-37.9, adult Borderline hyperglycemia CAD (coronary artery disease) COVID-19 (08/2020) 0 History of CVA (cerebrovascular accident) Hypertension Seasonal allergies Statin intolerance Systolic CHF with reduced left ventricular function, NYHA class 3 Urinary incontinence Surgical History H/O coronary angiogram LAD stent November 2021 History of appendectomy Family History Brother Stroke Sister Stroke Father Stroke CAD (coronary artery disease) Mother Stroke Diabetes Social History Smoking and tobacco status: never smoked Quit status (tobacco): has quit using tobacco Former quit date comment: 50 years ago, smoked less than a year Alcohol intake: never Lives independently: Yes Vitals/I&O/Wt Last Vital Signs Temp 97.7 F 05/19/22 07:40 Pulse 99 05/19/22 07:40 Resp 20 H 05/19/22 07:40 BP 107/72 05/19/22 07:40 Pulse Ox 98 05/19/22 07:40 O2 Del Method 05/19/22 07:40 05/18/22 05/19/22 05/19/22 22:59 06:59 14:59 Intake Total 590 / 590 0 / 590 Output Total 0 / 0 Balance 590 / 590 - 589 Weight last 48 hrs Weight 180 lb Physical Exam Narrative: General : Patient is well developed , no acute distress, oriented x3 Head : Normal cephalic, a-traumatic. Ears : Pinnae and external canal are normal. Hearing is normal. Eyes : PERRLA, Sclera and injection are normal. No conjunctival discharge. Nose : Mucous membranes are without erythema. Throat : buccal mucosa is normal, gums are without significant recession or hypertrophy. Lungs : Equal chest rise bilaterally, no use of accessory muscles, trachea is midline. Cor : Rate and rhythm are normal. Abdomen : Soft, ND, NT, no g/r/m Extremities : No edema, no cyanosis or clubbing, dorsalis pedis pulses are present bilaterally, non-tender to palpation of calves. Upper extremities are normal bilaterally. Back : non-tender to palpation, no CVA tenderness. Neuro : CN II - XII intact, Upper and lower extremities have equal and full strength Data 05/19/22 01:23 05/19/22 01:23 A&P Assessment and plan (1) Acute blood loss anemia: (2) Acute upper GI bleed: Plan EGD The risks and benefits of the procedure, including bleeding, infection, intestinal perforation requiring surgery, missed lesion were explained to the patient. The patient is understanding of the risks and wishes to proceed. Coding Level of Care Code Acute Code for [facility] Fwd Diagnoses Acute blood loss anemia D62 Acute upper GI bleed K92.2
--- NOTE | 2022-05-19 08:39 | P.ANESASSM_ITS ---
Pre-Anesthetic Assessment Height/Weight: Height 1.47 m Weight 81.647 kg Temp Pulse Resp BP Pulse Ox O2 Del Method 97.7 F 99 20 H 107/72 98 05/19/22 07:40 05/19/22 07:40 05/19/22 07:40 05/19/22 07:40 05/19/22 07:40 05/19/22 07:40 Preop Diagnosis: Gi Bleed Operation Date: 05/19/22 08:10 Proposed Procedures p EGD(Not Applicable) - Rush Deng DO Familial anesthetic complications: None Was Beta Brennan taken within 24 hours: Yes Was Clonidine taken within 24 hours: N/A Last intake: Intake Last Liquid Date 05/18/22 Last Liquid Time 23:00 Last Solid Date 05/18/22 Last Solid Time 10:00 Social Alcohol (occasional) and No tobacco Exam alert, oriented x 3, clear to auscultation bilaterally and regular rate & rhythm Airway Submandibular: within normal limits Cervical ROM: within normal limits Mallampati: Class II Dentition: full Pulmonary Exertional Dyspnea and Shortness of Breath CV/HEM Anemia, Congestive Heart Failure and Hypertension stent x 22 November 2022 None reported Hepatic None reported GI Gastroesophageal Reflux Disease Metabolic Hyperlipidemia and Morbid Obesity [facility] [place] None reported Neuropsych None reported Anesthetic Plan ASA status: 3 Anesthesia: MAC Risk of > 500 ml blood loss (7ml/kg in children): No Medications/Allergies Home Medications Medication Instructions Recorded Confirmed Last Taken Type nitroglycerin 0.4 mg sublingual 0.4 mg sublingual Q5M PRN Chest 12/14/21 05/18/22 Unknown Rx tablet Pain 9 days #25 tabs potassium chloride 8 mEq 8 meq PO DAILY #30 tabs 03/02/22 05/18/22 Unknown Rx tablet,extended release (Klor-Con) oxybutynin chloride 10 mg 10 mg PO BEDTIME PRN Bladder Spasms 03/04/22 05/18/22 Unknown History tablet,extended release 24 hr clopidogrel 75 mg tablet 75 mg PO DAILY #90 tabs 03/09/22 05/18/22 Unknown Rx ezetimibe 10 mg tablet (Zetia) 10 mg PO DAILY #90 tabs 03/09/22 05/18/22 Unknown Rx metoprolol tartrate 50 mg tablet 125 mg PO DIRECTED #270 tabs 04/07/22 05/18/22 Unknown Rx sacubitril 24 mg-valsartan 26 mg 2 tab PO BID #120 tabs 05/08/22 05/18/22 Unk nown Rx tablet (Entresto) atorvastatin 40 mg tablet 40 mg PO BEDTIME 05/18/22 05/18/22 Unknown History rivaroxaban 20 mg tablet (Xarelto) 20 mg PO DAILY 05/18/22 05/18/22 Unknown History furosemide 40 mg tablet (Lasix) 60 mg PO QAM #45 tabs 05/19/22 Unknown Rx pantoprazole 40 mg tablet,delayed 40 mg PO BID #60 tabs 05/19/22 Unknown Rx release (Protonix) Allergies Allergy/AdvReac Type Severity Reaction Status Date / Time No Known Allergies Allergy Verified 05/03/22 12:47 Current Medications Generic Name Dose Route Start Last Admin Trade Name Freq PRN Reason Stop Dose Admin Atorvastatin Calcium 40 mg 05/18/22 21:00 05/18/22 20:14 Atorvastatin 40 Mg Tablet PO 40 mg BEDTIME SURESH Administration Sodium Chloride 1,000 mls @ 30 mls/hr 05/19/22 07:45 05/19/22 07:58 Sodium Chloride 0.9% IV 05/20/22 07:44 30 mls/hr .Q24H SURESH Administration Pantoprazole Sodium 40 mg 05/18/22 23:00 05/19/22 00:17 Pantoprazole 40 Mg Sdv IVP 40 mg Q12H SURESH Administration Sacubitril/Valsartan 2 each 05/18/22 18:00 05/18/22 20:14 Sacubitril/Valsartan 24-26 Mg Tablet PO 2 each BID SURESH Administration PFSH Anesthesia Medical History Acne rosacea 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 Atrial fibrillation BMI 37.0-37.9, adult Borderline hyperglycemia CAD (coronary artery disease) COVID-19 (08/2020) 0 History of CVA (cerebrovascular accident) Hypertension Seasonal allergies Statin intolerance Systolic CHF with reduced left ventricular function, NYHA class 3 Urinary incontinence Surgical History H/O coronary angiogram LAD stent November 2021 History of appendectomy Family History Brother Stroke Sister Stroke Father Stroke CAD (coronary artery disease) Mother Stroke Diabetes Social History Smoking and tobacco status: never smoked Quit status (tobacco): has quit using tobacco Former quit date comment: 50 years ago, smoked less than a year Alcohol intake: never Lives independently: Yes Data Anesthesia 05/19/22 01:23 05/19/22 01:23 Short CBC 05/18/22 05/19/22 Range/Units 11:18 01:23 WBC 9.0 8.8 (4.0-10.0) 10^3/uL Hgb 6.8 L 9.0 L D (11.5-15.3) g/dL Hct 22.3 L 29.4 L D (37.0-47.0) % MCV 101.8 H 96.4 D (81-99) fl Plt Count 207 193 (130-400) 10^3/cmm Neut % (Auto) 72.0 63.2 % Neut # (Auto) 6.48 5.58 (1.8-7.7) 10^3/uL BMP 05/18/22 05/19/22 11:18 01:23 Sodium 140 141 Potassium 4.2 3.7 Chloride 107 111 H Carbon Dioxide 22 18 L BUN 25 H 21 Creatinine 0.9 0.9 Glucose 128 H 122 H Calcium 7.9 L 7.9 L Cardiac Enzymes 05/18/22 05/18/22 05/18/22 Range/Units 11:18 11:18 12:55 Troponin T Baseline 11 H (0-10) ng/L Troponin T 120 Minute 9.45 (0-10) ng/L Delta Troponin T -1.55 L (0-10) ABS# Troponin T Hi Sens 6Hr (0-10) ng/L Troponin T Hi Sens 6Hr Delta (0-12) ng/L NT-Pro-B Natriuret Pep 686 H (0-450) pg/mL 05/18/22 Range/Units 21:21 Troponin T Baseline (0-10) ng/L Troponin T 120 Minute (0-10) ng/L Delta Troponin T (0-10) ABS# Troponin T Hi Sens 6Hr 11.08 H (0-10) ng/L Troponin T Hi Sens 6Hr Delta 0.08 (0-12) ng/L NT-Pro-B Natriuret Pep (0-450) pg/mL Liver Function 05/18/22 05/19/22 Range/Units 11:18 01:23 Total Bilirubin 1.0 3.0 H (0.15-1.2) mg/dL AST 13 13 (0-32) U/L ALT 10 9 (0-33) U/L Alkaline Phosphatase 56 49 (35-105) U/L Albumin 3.4 L 3.0 L (3.5-5.2) g/dL Blood Bank 05/18/22 12:27 Blood Type A Positive Rho(D) Type Positive Antibody Screen Negative Cardiac Studies: Echocardiogram 11/17/21 Echocardiogram Limited Views 03/31/22 Cardiac Event Monitor 12/23/21
--- NOTE | 2022-05-19 08:57 | ANE.PACU2 ---
Inpatient post-anesthesia follow up: Airway intact: Yes Vital signs: Temperature 97.7 F Pulse Rate 99 Respiratory Rate 20 Blood Pressure 107/72 Pulse Oximetry 98 Oxygen Delivery Me thod [ Room Air Current Rate & Del tobias] Oxygen Delivery Me thod Room Air Oxygen Flow Rate Fraction of Inspir ed Oxygen Hydration adequate: Yes Nausea and vomiting: No Pain level: 1 Mental status: Baseline
--- NOTE | 2022-05-19 10:17 | PC.CHAP ---
Pastoral Care Encounter/Spiritual Assessment Type of Contact [] Declined nailing machine operator visit [] Patient/Family/Request visit [] Outpatient visit [] Follow-up visit [] Physician referral [] Code/Alert [] Routine visit [] Staff referral [] Actively dying [] Patient sleeping [] Family support [] [x] Out of room [] Palliative care [] [] Receiving care in room [] Pre-surgical visit [] Trauma [] Long length of stay [] ICU visit [] Other: Relational/Emotional Strength [] Patient feels connected with others/family/visitors/staff [] Distress [] Loneliness/isolation [] Abandonment Spirituality of Patient [] Person of Michelle [] Attends Caodaism of their Michelle [] Believes in Prayer [] Reads Bible or Hinduism materials [] There are Spiritual issues to be addressed Oval Or Circular Glass Cutter Interventions [] Prayer [] Active listening [] Non-anxious presence [] Spiritual/emotional support [] Crisis/trauma care [] Spiritual counseling [] Bereavement support [] Provided bereavement packet [] Provided Bible/devotional materials [] Provided toy/stuffed animal, coloring book to patient or family member [] Provided Communion [] Anointing/[place] [] Salvation [] Completed spiritual assessment [] Other: Impact on Illness or Injury [] Angry [] Fearful [] Anxious [] Often cries [] Exhaustion [] Unable to work [] Unable to attend quaker [] Unable to walk/stand [] Unable to read [] Unable to drive [] Unable to eat/drink [] Unable to sleep [] Unable to be with family [] Patient intubated [] Other: Summary Time spent with patient
[2022-05-19] MEDS: FUROsemide 10 mg/mL SDV 4mL 40 MG IVP (12:19)
--- NOTE | 2022-05-19 13:17 | P.DS_ITS ---
Discharge Providers Date of Admission: 05/18/22 15:06 Date of Discharge: May 19, 2022 Attending Provider at Admission: Allen Nieves MD Attending Provider at Discharge: Trav Lassiter MD Primary Care Provider: Jessica Fraser DO Diagnoses at Discharge Discharge Diagnosis (1) Acute blood loss anemia: Status: Acute (2) Acute upper GI bleed: Status: Acute Reason for Visit Reason for Visit: cough/sob Hospital Course Hospital Course Laura is an 81-year-old white female who presented to the hospital short of breath, and having black stools. She was found to be significantly anemic. Her Xarelto and Plavix were held. She denied any anti-inflammatory use. As she was having black stools it was suspected she was having an upper GI bleed. She was placed on Protonix IV and surgery was consulted for possible endoscopy. Transfusion of 2 units of packed red blood cells was initiated. EGD was performed May 19 demonstrating significant gastritis but no active bleeding. She can restart her Plavix tomorrow. She will need to follow-up with her primary care provider on or Wednesday, 3 to 4 days for recheck CBC and BMP. If CBC is acceptable, and no evidence of continued bleeding, restart of Xa relto could occur. She will continue to take Protonix 40 mg twice daily. She was given an opportunity ask questions, and agreed with the above plan. Discharge hemoglobin is 9. Her dose of Lasix was also increased secondary to peripheral edema. She will take 60 mg a day on discharge. She also had a CT scan of abdomen and pelvis on admission which demonstrated mild duodenal and jejunal wall thickening, cardiomegaly and small right effusion. Physical Exam Narrative: General exam no distress Neck is supple Cardiovascular regular rate and rhythm Lungs clear Abdomen is soft nontender Extremities no cyanosis clubbing or edema Discharge Data Studies Completed and Pending Completed Studies During Hospitalization Category Date Time Status CT abdomen pelvis wo con [id number] Stat Cat Scan 05/18/22 11:35 Completed XR chest 1V portable [id number] Stat Exams 05/18/22 10:16 Completed Pending at discharge Category Date Time Status Occult Blood Stool [Immunochemical Fecal OCB] Routine Lab 05/18/22 11:36 Ordered Radiology Impressions Chest X-Ray 05/18/22 10:16 IMPRESSION: No acute findings. Abdomen/Pelvis CT 05/18/22 11:35 IMPRESSION: 1. Questionable mild duodenal and jejunal wall thickening. Mild nonspecific enteritis could produce this appearance. 2. Cardiomegaly and small right pleural effusion. 3. Additional findings, as above. Laboratory Results WBC 8.8 10^3/uL (4.0-10.0) 05/19/22 01: RBC 3.05 10^6/uL (4.1-5.3) L 05/19/22 01: Hgb 9.0 g/dL (11.5-15.3) L D 05/19/22 01: Hct 29.4 % (37.0-47.0) L D 05/19/22 01: MCV 96.4 fl (81-99) D 05/19/22 01: MCH 29.5 pg (28.0-34.0) 05/19/22 01: MCHC 30.6 g/dL (30.0-36.0) 05/19/22 01: RDW 19.2 % (12.1-15.1) H 05/19/22 01: Plt Count 193 10^3/cmm (130-400) 05/19/22 01: MPV 9.9 fL (7.4-10.4) 05/19/22 01: Neut % (Auto) 63.2 % 05/19/22 01: Lymph % (Auto) 27.4 % 05/19/22 01: [place] % (Auto) 7.9 % 05/19/22 01: Eos % (Auto) 1.2 % 05/19/22 01: Baso % (Auto) 0.0 % 05/19/22 01: Neut # (Auto) 5.58 10^3/uL (1.8-7.7) 05/19/22 01: Lymph # (Auto) 2.4 10^3/uL (0.8-4.8) 05/19/22 01: [place] # (Auto) 0.7 10^3/uL (0.2-0.9) 05/19/22 01: Eos # (Auto) 0.1 10^3/uL (0.0-0.8) 05/19/22 01: Baso # (Auto) 0.0 10^3/uL (0.0-0.1) 05/19/22 01:23 Nucleated RBC % (auto) 0 % 05/19/22 01:23 Nucleated RBCs # 0.0 /100WBC 05/19/22 01:23 Sodium 141 mmol/L (136-145) 05/19/22 01:23 Potassium 3.7 mmol/L (3.5-5.1) 05/19/22 01:23 Chloride 111 mmol/L (98-107) H 05/19/22 01:23 Carbon Dioxide 18 mmol/L (22-29) L 05/19/22 01:23 Anion Gap 15.7 (5-19) 05/19/22 01:23 BUN 21 mg/dL (8-23) 05/19/22 01:23 Creatinine 0.9 mg/dL (0.5-0.9) 05/19/22 01:23 GFR Calculation Not Reportable 05/19/22 01:23 Glucose 122 mg/dL (65-115) H 05/19/22 01:23 Calculated Osmolality 296 mOsm/kg (285-295) H 05/19/22 01:23 Calcium 7.9 mg/dL (8.5-10.5) L 05/19/22 01:23 Magnesium 2.2 mg/dL (1.7-2.3) 05/19/22 01:23 Total Bilirubin 3.0 mg/dL (0.15-1.2) H 05/19/22 01:23 AST 13 U/L (0-32) 05/19/22 01:23 ALT 9 U/L (0-33) 05/19/22 01:23 Alkaline Phosphatase 49 U/L (35-105) 05/19/22 01:23 Troponin T Baseline 11 ng/L (0-10) H 05/18/22 11:18 Troponin T 120 Minute 9.45 ng/L (0-10) 05/18/22 12:55 Delta Troponin T -1.55 ABS# (0-10) L 05/18/22 12:55 Troponin T Hi Sens 6Hr 11.08 ng/L (0-10) H 05/18/22 21:21 Troponin T Hi Sens 6Hr Delta 0.08 ng/L (0-12) 03/27/23 21:21 NT-Pro-B Natriuret Pep 686 pg/mL (0-450) H 05/18/22 11:18 Total Protein 4.9 g/dL (6.6-8.7) L 05/19/22 01:23 Albumin 3.0 g/dL (3.5-5.2) L 05/19/22 01:23 Globulin 1.9 g/dL (1.3-4.6) 05/19/22 01:23 Blood Type A Positive 05/18/22 12:27 Rho(D) Type Positive 05/18/22 12:27 Antibody Screen Negative 05/18/22 12:27 Crossmatch See Detail 05/18/22 12:27 Vitals Last Vital Signs Temp 97.8 F 05/19/22 12:27 Pulse 96 05/19/22 12:27 Resp 15 05/19/22 12:27 BP 108/67 05/19/22 12:27 Pulse Ox 97 05/19/22 12:27 O2 Del Method 05/19/22 12:27 Discharge Plan Discharge Patient Disposition: Home Condition: Stable Prescriptions: New furosemide [Lasix] 40 mg tablet 60 mg PO QAM Qty: 45 0RF pantoprazole [Protonix] 40 mg tablet,delayed release (DR/EC) 40 mg PO BID Qty: 60 0RF Continued potassium chloride [Klor-Con 8] 8 mEq tablet extended release 8 meq PO DAILY Qty: 30 1RF clopidogrel 75 mg tablet 75 mg PO DAILY Qty: 90 3RF ezetimibe [Zetia] 10 mg tablet 10 mg PO DAILY Qty: 90 3RF metoprolol tartrate 50 mg tablet 125 mg PO DIRECTED Qty: 270 3RF Rx Instructions: 75mg (1.5 tabs) in AM and 50mg (1 tab) in PM Entresto 24-26 mg tablet 2 tab PO BID Qty: 120 3RF oxybutynin chloride 10 mg tablet extended release 24hr 10 mg PO BEDTIME PRN (Reason: Bladder Spasms) nitroglycerin 0.4 mg Tablet, Sublingual 0.4 mg sublingual Q5M PRN (Reason: Chest Pain) 9 Days Qty: 25 3RF atorvastatin 40 mg tablet 40 mg PO BEDTIME Xarelto 20 mg tablet 20 mg PO DAILY Discontinued furosemide 40 mg tablet 40 mg PO DAILY Qty: 30 4RF Discharge Orders: Discharge Order (Routine); Ordered 05/19/22 Ordered By: Trav Lassiter Referrals: Jessica Fraser DO [Primary Care Provider] - 4-7 days (CBC and BMP on follow- up. Please follow-up by Wednesday.) Discharge Diet: Cardiac Discharge Activity: Increase activity as tolerated Patient Instructions: GI Discharge Instructions, Opioid Safety, Pain Management Activity Restrictions/Additional Instructions: Take all medicine as prescribed. Do not take any_inflammatories. Return for any significant bleeding. Have your primary care provider see you on or Wednesday with CBC and BMP. You may resume your Plavix tomorrow. Do not resume your Xarelto until okayed by your primary care provider on Wednesday. Patient's Health Concerns: Short of breath, black stool Assessment: Probable upper GI bleed Plan of Treatment: EGD demonstrated significant gastritis Protonix 40 mg twice daily Reinitiate Plavix but hold Xarelto until recheck CBC as an outpatient Discharge Attestations Time Spent in Discharge Care*: greater than 30 min Quality Metrics Clinical Quality Measures [ No reported AMI, CVA or VTE this stay] Coding Level of Care Code 75367 Total time (in minutes) for Discharge: 36 Diagnoses Acute blood loss anemia D62 Acute upper GI bleed K92.2
== END 2022-05-19 14:43 | disposition home or self-care (01) ==
LOC: ER 12:17 → MEDSURG 18:42
PROVIDERS: Surgery; Admitting Provider Student in an Organized Health Care Education/Training Program; Emergency Provider Family Medicine; PCP Family Medicine; Visit Provider Internal Medicine
PROC: 0DJ08ZZ Inspection of Upper Intestinal Tract, Via Natural or Artificial Opening Endoscopic (ICD-10-PCS; CPT 43235; principal; 2022-05-19 08:10)
DX: D62 Acute posthemorrhagic anemia (principal); K29.70 Gastritis, unspecified, without bleeding; I11.0 Hypertensive heart disease with heart failure; I50.20 Unspecified systolic (congestive) heart failure; Z86.73 Personal history of transient ischemic attack (TIA), and cerebral infarction without residual deficits; I25.10 Atherosclerotic heart disease of native coronary artery without angina pectoris; K21.9 Gastro-esophageal reflux disease without esophagitis; E78.5 Hyperlipidemia, unspecified; E66.01 Morbid (severe) obesity due to excess calories; Z68.37 Body mass index [BMI] 37.0-37.9, adult; Z86.16 Personal history of COVID-19; Z87.891 Personal history of nicotine dependence; Z79.02 Long term (current) use of antithrombotics/antiplatelets; Z79.01 Long term (current) use of anticoagulants; I48.91 Unspecified atrial fibrillation
CPT/HCPCS: 36415; 36430; 43235; 71045; 74176; 80053; 83735; 83880; 84484; 85025; 86850; 86900; 86920; 93005; 96374; 99285; C9113; G0378; J1940; J2704; J7030; P9016

== ENCOUNTER 2022-07-14 10:19 | Outpatient (CLI) | payer MEDICARE, SELFPAY ==
[2022-07-14 12:15] LABS: Eosinophils # 0.3 10^3/uL (0.0-0.8); Hematocrit 39.9 % (37.0-47.0); Hemoglobin 11.9 g/dL (11.5-15.3); Lymphocytes # 1.2 10^3/uL (0.8-4.8); Lymphocytes % 17.5 %; Mean Corpuscular HGB Conc 29.8 g/dL (30.0-36.0); Mean Corpuscular Hemoglobin 27.5 pg (28.0-34.0); Mean Corpuscular Volume 92.1 fl (81-99); Mean Platelet Volume 10.5 fL (7.4-10.4); Monocytes # 0.6 10^3/uL (0.2-0.9); Neutrophils # 4.86 10^3/uL (1.8-7.7); Neutrophils % 69.2 %; Nucleated Red Blood Cells % 0 %; Platelet Count 239 10^3/cmm (130-400); Red Blood Count 4.33 10^6/uL (4.1-5.3); Red Cell Distribution Width 14.4 % (12.1-15.1)
[2022-07-14 12:52] LABS: Alanine Aminotransferase 35 U/L (0-33); Albumin Level 3.9 g/dL (3.5-5.2); Alkaline Phosphatase 163 U/L (35-105); Blood Urea Nitrogen 20 mg/dL (8-23); Calcium 8.6 mg/dL (8.5-10.5); Carbon Dioxide 24 mmol/L (22-29); Chloride 104 mmol/L (98-107); Globulin 2.9 g/dL (1.3-4.6); Glucose 104 mg/dL (65-115); NT Pro B Type Natriuretic Pept 418 pg/mL (0-450); Osmolality Calculated 293 mOsm/kg (285-295); Sodium 140 mmol/L (136-145); Thyroid Stimulating Hormone 1.71 uIU/mL (0.27-4.20); Total Bilirubin 0.9 mg/dL (0.15-1.2); Total Protein 6.8 g/dL (6.6-8.7)
[2022-07-14 12:55] LABS: Anion Gap 16.1 (5-19); Aspartate Amino Transferase 38 U/L (0-32); Potassium 4.1 mmol/L (3.5-5.1)
== END 2022-07-14 10:20 | disposition home or self-care (01) ==
PROVIDERS: PCP Family Medicine; Visit Provider Family Medicine
DX: I11.0 Hypertensive heart disease with heart failure (principal); I50.43 Acute on chronic combined systolic (congestive) and diastolic (congestive) heart failure
CPT/HCPCS: 36415; 80053; 83880; 84443; 85025

== ENCOUNTER 2022-08-04 09:46 | Observation (INO) | payer MEDICARE, SELFPAY ==
[2022-08-04 10:01] VITALS: BP 124/68; PULSE 68; RESP 20; TEMP 36.8; O2SAT 100; BMI 37.6
[2022-08-04 10:20] VITALS: BP 124/68; PULSE 68; RESP 18; O2SAT 98
--- NOTE | 2022-08-04 10:32 | ED_ITS ---
HPI - GI Bleed General: Chief complaint: Abdominal Pain Stated complaint: Dr Fraser sent in due to dark stool Time Seen by Provider: 08/04/22 09:58 Source: patient Mode of arrival: ambulatory History of Present Illness: 81-year-old female presents emergency room she has a history of previous GI bleed sounds it may have been an upper GI bleed she was transfused a few months ago at that time she had a EGD done and there is question of some ulcers. Last few days she has had dark tarry stools and some abdominal discomfort in the epigastric region. She was previously on an anticoagulant was switched to aspirin and clopidogrel. She has not had any hematochezia hematemesis coffee- ground emesis. MD complaint: melena Onset (ago): day(s) Pain Consistency: intermittent Severity: mild Relieving factors: none Exacerbating factors: none Context: history of GI bleed Associated symptoms: Reports abdominal pain, poor appetite and weakness; Denies chills, easy bruising, epistaxis, fever(s), headache(s), malaise, nausea, other bleeding, rash, syncope or vomiting Treatments Prior to Arrival: none Review of Systems Const: Reports: fatigue; Denies: fever(s), chills or malaise ENMT: Denies: epistaxis Card: Denies: chest pain, palpitations or syncope Resp: Denies: dyspnea, productive cough or non-productive cough GI: Reports: abdominal pain, GI cramping and melena; Denies: nausea or vomiting : Denies: flank pain, difficulty voiding, dysuria, urinary frequency or urinary urgency Musc: Denies: neck pain or back pain Skin/Breast: Denies: rash or pruritus Neuro: Denies: headache(s) [place]/Lymph: Denies: easy bruising [facility] PFSH: Medical History (Updated 08/05/22 @ 07:34 by Tyson Salazar DO) Acne rosacea Atrial fibrillation BMI 37.0-37.9, adult CAD (coronary artery disease) 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) COVID-19 (08/2020) 0 Hypertension Impaired glucose tolerance Seasonal allergies ST elevation myocardial infarction (STEMI) (11/2021) Statin intolerance Systolic CHF with reduced left ventricular function, NYHA class 3 UGI bleed (04/2022) 04/2022 on xarelto at time, EGD with erosive gastritis, no active bleeding, but required transfusion 2 units for Hgb of 6.8 (from 11) Urinary incontinence Surgical History H/O coronary angiogram LAD stent November 2021 History of appendectomy Family History Brother Stroke Sister Stroke Father Stroke CAD (coronary artery disease) Mother Stroke Diabetes Social History (Updated 08/04/22 @ 13:57 by Julienne Guzman MD) Smoking and tobacco status: former smoker Quit status (tobacco): has quit using tobacco Former quit date comment: 50+ years ago, smoked only about 6 months Alcohol intake: never Substance/Drug Use: never Lives independently: Yes Physical Exam Const: GENERAL APPEARANCE: cooperative and comfortable ORIENTATION/CONSCIOUSNESS: Yes awake, Yes oriented to person, Yes oriented to place and Yes oriented to time HENMT: COMMON NORMALS: normocephalic, atraumatic and hearing grossly normal bilaterally HEAD & SCALP: normocephalic and atraumatic Resp: COMMON NORMALS: normal respiratory effort, No retractions, No use of accessory muscles and clear to auscultation bilaterally AUSCULTATION: clear to auscultation bilaterally Cardio: COMMON NORMALS: regular rate, regular rhythm and No murmurs present (Cardio) RATE: regular rate RHYTHM: regular rhythm GI: COMMON NORMALS: Soft to palpation and No hepatosplenomegaly present AUSCULTATION: Yes normoactive bowel sounds PALPATION: Yes Soft to palpation, No Tenderness to palpation present (GI), No Guarding due to palpation present (GI) and Yes No hepatosplenomegaly present Extremity: COMMON NORMALS: normal to inspection, capillary refill normal, no clubbing, cyanosis or edema, no calf tenderness and no pedal edema Neuro: SENSORIUM/ORIENTATION: Yes oriented to person, Yes oriented to place and Yes oriented to time Skin: COMMON NORMALS: no rashes or lesions noted GENERAL SKIN EXAM: no rashes or lesions noted Course Vital Signs: Vital signs: Vital Signs Temperature 98.2 F 08/05/22 04:00 Pulse Rate 74 08/05/22 04:00 Respiratory Rate 16 08/05/22 04:00 Blood Pressure 105/64 08/05/22 04:00 Pulse Oximetry 98 08/05/22 04:00 Oxygen Delivery Me thod Room Air 08/05/22 04:00 MDM - GI Bleed Medical Decision Making Heme positive stool. Hemoglobin is decreased but stable at this time. Given her recent severe anemia with a hemoglobin that drifted down to [address] on observation and repeat Gregg hemoglobin. She was recently restarted on aspirin along with clopidogrel, for her heart disease which may have been the precipitating factor. Medical Records I reviewed the patient's medical records. Lab Data I reviewed the patient's lab results. 08/05/22 02:53 08/05/22 02:53 Laboratory Results WBC 8.0 10^3/uL (4.0-10.0) 08/04/22 10:30 RBC 4.32 10^6/uL (4.1-5.3) 08/04/22 10:30 Hgb 11.5 g/dL (11.5-15.3) 08/04/22 10:30 Hct 37.7 % (37.0-47.0) 08/04/22 10:30 MCV 87.3 fl (81-99) 08/04/22 10:30 MCH 26.6 pg (28.0-34.0) L 08/04/22 10:30 MCHC 30.5 g/dL (30.0-36.0) 08/04/22 10:30 RDW 14.2 % (12.1-15.1) 08/04/22 10:30 Plt Count 230 10^3/cmm (130-400) 08/04/22 10:30 MPV 10.0 fL (7.4-10.4) 08/04/22 10:30 Neut % (Auto) 69.8 % 08/04/22 10:30 Lymph % (Auto) 20.1 % 08/04/22 10:30 [place] % (Auto) 7.8 % 08/04/22 10:30 Eos % (Auto) 2.0 % 08/04/22 10:30 Baso % (Auto) 0.0 % 08/04/22 10:30 Neut # (Auto) 5.59 10^3/uL (1.8-7.7) 08/04/22 10:30 Lymph # (Auto) 1.6 10^3/uL (0.8-4.8) 08/04/22 10:30 [place] # (Auto) 0.6 10^3/uL (0.2-0.9) 08/04/22 10:30 Eos # (Auto) 0.2 10^3/uL (0.0-0.8) 08/04/22 10:30 Baso # (Auto) 0.0 10^3/uL (0.0-0.1) 08/04/22 10:30 Nucleated RBC % (auto) 0 % 08/04/22 10:30 Nucleated RBCs # 0.0 /100WBC 08/04/22 10:30 PT 14.10 SECONDS (12.1-14.9) 08/04/22 10:30 INR 1.06 (0.8-1.2) 08/04/22 10:30 APTT 27.3 SECONDS (23.9-36.7) 08/04/22 10:30 Sodium 139 mmol/L (136-145) 08/04/22 10:30 Potassium 4.7 mmol/L (3.5-5.1) 08/04/22 10:30 Chloride 106 mmol/L (98-107) 08/04/22 10:30 Carbon Dioxide 23 mmol/L (22-29) 08/04/22 10:30 Anion Gap 14.7 (5-19) 08/04/22 10:30 BUN 30 mg/dL (8-23) H 08/04/22 10:30 Creatinine 1.0 mg/dL (0.5-0.9) H 08/04/22 10:30 GFR Calculation Not Reportable 08/04/22 10:30 Glucose 143 mg/dL (65-115) H 08/04/22 10:30 Calculated Osmolality 297 mOsm/kg (285-295) H 08/04/22 10:30 Calcium 8.6 mg/dL (8.5-10.5) 08/04/22 10:30 Total Bilirubin 0.9 mg/dL (0.15-1.2) 08/04/22 10:30 AST 38 U/L (0-32) H 08/04/22 10:30 ALT 23 U/L (0-33) 08/04/22 10:30 Alkaline Phosphatase 112 U/L (35-105) H 08/04/22 10:30 Creatine Kinase 73 U/L (26-192) 08/04/22 10:30 Total Protein 6.5 g/dL (6.6-8.7) L 08/04/22 10:30 Albumin 3.6 g/dL (3.5-5.2) 08/04/22 10:30 Globulin 2.9 g/dL (1.3-4.6) 08/04/22 10:30 Lipase 69 U/L (13-60) H 08/04/22 10:30 Urine Color Dark yellow (Yellow) 08/04/22 11:01 Urine Appearance Clear (CLEAR) 08/04/22 11:01 Urine pH 5 (5-7) 08/04/22 11:01 Ur Specific [place] 1.025 (1.005-1.030) 08/04/22 11:01 Urine Protein Neg (Negative) 08/04/22 11:01 Urine Glucose (UA) Norm (Normal) 08/04/22 11:01 Urine Ketones Negative (Negative) 08/04/22 11:01 Urine Blood 2+ (Negative) H 08/04/22 11:01 Urine Nitrate Negative (Negative) 08/04/22 11:01 Urine Bilirubin Neg (Negative) 08/04/22 11:01 Urine Urobilinogen Norm mg/dL (Negative) 08/04/22 11:01 Ur Leukocyte Esterase Negative (Negative) 08/04/22 11:01 Urine RBC 0-4 /hpf (0-2) H 08/04/22 11:01 Urine WBC 0-4 /hpf (0-5) H 08/04/22 11:01 Ur Squamous Epith Cells Rare /hpf (0-5) 08/04/22 11:01 Amorphous Sediment Not Reportable 08/04/22 11:01 Urine Bacteria Trace /hpf (NONE) 08/04/22 11:01 Hyaline Casts 0-4 /lpf H 08/04/22 11:01 Urine Mucus 1+ /hpf 08/04/22 11:01 Discharge Plan Discharge Patient Disposition: Admitted As Inpatient Admit Provider: Julienne Guzman Clinical Impression: Acute upper GI bleed, Atrial fibrillation, Melena, History of upper gastrointestinal bleeding Condition: Stable Coding Level of Care Code 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
[2022-08-04 10:47] LABS: Eosinophils # 0.2 10^3/uL (0.0-0.8); Hematocrit 37.7 % (37.0-47.0); Hemoglobin 11.5 g/dL (11.5-15.3); Lymphocytes # 1.6 10^3/uL (0.8-4.8); Lymphocytes % 20.1 %; Mean Corpuscular HGB Conc 30.5 g/dL (30.0-36.0); Mean Corpuscular Hemoglobin 26.6 pg (28.0-34.0); Mean Corpuscular Volume 87.3 fl (81-99); Monocytes # 0.6 10^3/uL (0.2-0.9); Monocytes % 7.8 %; Neutrophils # 5.59 10^3/uL (1.8-7.7); Neutrophils % 69.8 %; Nucleated Red Blood Cells % 0 %; Platelet Count 230 10^3/cmm (130-400); Red Blood Count 4.32 10^6/uL (4.1-5.3); Red Cell Distribution Width 14.2 % (12.1-15.1)
[2022-08-04 11:04] LABS: INR 1.06 (0.8-1.2)
[2022-08-04 11:05] LABS: Partial Thromboplastin Time 27.3 SECONDS (23.9-36.7)
[2022-08-04 11:14] LABS: Alanine Aminotransferase 23 U/L (0-33); Albumin Level 3.6 g/dL (3.5-5.2); Alkaline Phosphatase 112 U/L (35-105); Blood Urea Nitrogen 30 mg/dL (8-23); Calcium 8.6 mg/dL (8.5-10.5); Carbon Dioxide 23 mmol/L (22-29); Chloride 106 mmol/L (98-107); Globulin 2.9 g/dL (1.3-4.6); Glucose 143 mg/dL (65-115); Lipase 69 U/L (13-60); Osmolality Calculated 297 mOsm/kg (285-295); Sodium 139 mmol/L (136-145); Total Bilirubin 0.9 mg/dL (0.15-1.2); Total Protein 6.5 g/dL (6.6-8.7)
[2022-08-04 11:16] LABS: Anion Gap 14.7 (5-19); Aspartate Amino Transferase 38 U/L (0-32); Potassium 4.7 mmol/L (3.5-5.1)
[2022-08-04 11:55] LABS: Add Urine Microscopic? YES; Bilirubin Urine Neg (Negative); Blood Urine 2+ (Negative); Glucose Urine UA Norm (Normal); Ketones Urine Negative (Negative); Leukocyte Esterase Urine Negative (Negative); Nitrate Urine Negative (Negative); Protein Urine Neg (Negative); Specific Gravity, Urine 1.025 (1.005-1.030); Urine Appearance Clear (CLEAR); Urine Color Dark Yellow (Yellow); Urobilinogen Urine Norm (Negative); pH Urine 5 (5-7)
[2022-08-04 11:56] LABS: RBC Urine 0-4 /hpf (0-2); WBC Urine 0-4 /hpf (0-5)
[2022-08-04 11:57] VITALS: BP 121/50; PULSE 79; RESP 18; O2SAT 99
[2022-08-04 11:57] LABS: Bacteria Urine TRACE /hpf; Hyaline Casts Urine 0-4 /lpf; Mucus Urine 1+ /hpf; Squamous Epithelial Cell Urine RARE /hpf (0-5)
--- NOTE | 2022-08-04 12:26 | PC.PHAR ---
pt states she takes care of her own medications-pt states the dr dced her xarelto 20mg daily about 6 weeks ago-pt states the dr just restarted her aspirin 81mg daily last week-notes are made in the pharmacy comments
--- NOTE | 2022-08-04 12:59 | PC.NURSE ---
REPORT CALLED TO MICHAEL SMITH IN [facility].
--- NOTE | 2022-08-04 13:09 | P.HP_ITS ---
Providers/Chief Complaint Admitting Physician: Julienne Guzman MD Primary Care Provider: Jessica Fraser DO Chief Complaint: Dr Fraser sent in due to dark stool History of Present Illness Laura Rodriguez is a 81 year old female who presented to the emergency room with chief complaint of black stools for 3 to 4 days. She has a history of an upper GI bleed in April of this year. Her hemoglobin back in February of this year had been 13. By May 03, had dropped to 11.6 and on May 18 was 6.8. At that point she had been having melena for about 6 weeks. She received transfusion of 2 units 2 units of packed red blood cells with improvement in her hemoglobin. EGD was done showing mild patchy gastritis with some erosive qualities. No active active bleeding was seen at the time of the upper upper endoscopy. She was discharged on twice daily PPI which she took for 30 days and then decrease to once daily. Her hemoglobin in June had recovered to 11.9. She was seen by Dr. Newton, cardiology in [place] last week and aspirin 81 mg, which had been held since her GI bleed in April, was resumed. She has been maintained on Plavix daily due to known coronary artery disease and LAD stent placement last November for STEMI. Other than the resumption resumption of aspirin last week, she denies any other NSAID use. She does drink a lot juices, particularly apple and grape. No carbonated beverage intake. No significant heartburn, nausea or vomiting reported though does complain of a lot of gas and associated gassy abdominal discomfort. No focal areas of abdominal pain. At baseline has 3-4 bowel movements per day. This usual frequency has persisted, but stools blackened and a little sticky last 3 days. No use of bismuth products or iron. She did not want to wait as long this time so discussed with her primary care provider, Dr Fraser, who sent to ED for further evaluation. Hemoglobin in ER today 11.5. Vitals presently stable. But given comorbdities and recent significant acute blood loss anemia from UGI bleed, being admitted to [facility] n status. Review of Systems General: Reports: Other (ROS as per HPI or as otherwise noted here) Const: Reports: fatigue; Denies: fever(s) or change in weight ENMT: Denies: odynophagia Card: Reports: irregular heart rhythm (known afib, Dr Aguilar recommended Watchman Device - she is considering) and dyspnea on exertion; Denies: chest pain or edema (no new edema) Resp: Reports: dyspnea (not worse that recent baseline) GI: Reports: bloating, excessive flatus and melena; Denies: hematemesis, dysphagia, diarrhea, constipation, rectal pain or hematochezia (no bright red blood) : Denies: difficulty voiding Neuro: Reports: difficulty walking (primarily due to cardiopulmonary limiting factors) and other (generalized weakness, nonfocal); Denies: dizziness Magen/Lymph: Reports: other (no other bleeding reported) Medications/Allergies Home Medications Medication Instructions Recorded Confirmed Last Taken Type oxybutynin chloride 10 mg 10 mg PO QAM 03/04/22 08/04/22 08/03/22 History tablet,extended release 24 hr ezetimibe 10 mg tablet (Zetia) 10 mg PO DAILY #90 tabs 03/09/22 08/04/22 Rx atorvastatin 40 mg tablet 40 mg PO BEDTIME 05/18/22 08/04/22 08/03/22 History aspirin 81 mg tablet,delayed 81 mg PO QAM 08/04/22 08/04/22 08/03/22 History release clopidogrel 75 mg tablet 75 mg PO QAM 08/04/22 08/04/22 08/03/22 History furosemide 40 mg tablet (Lasix) 80 mg PO DAILY@15 08/04/22 08/04/22 08/03/22 History metoprolol tartrate 50 mg tablet 50 mg PO BID 08/04/22 08/04/22 08/04/22 06:30 History nitroglycerin 0.4 mg sublingual 0.4 mg sublingual Q5M PRN Chest 08/04/22 08/04/22 Unknown History tablet (Nitrostat) Pain pantoprazole 40 mg tablet,delayed 40 mg PO QAM 08/04/22 08/04/22 08/03/22 History release (Protonix) potassium chloride 10 mEq 10 meq PO QAM 08/04/22 08/04/22 08/03/22 History tablet,extended release sacubitril 24 mg-valsartan 26 mg 1 tab PO BID 08/04/22 08/04/22 08/04/22 06:30 History tablet (Entresto) Allergies Allergy/AdvReac Type Severity Reaction Status Date / Time codeine Allergy Unconscious Verified 08/04/22 10:01 PFSH Acute PFSH: Medical History (Updated 08/04/22 @ 14:23 by Julienne Guzman MD) Acne rosacea Atrial fibrillation BMI 37.0-37.9, adult CAD (coronary artery disease) 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) COVID-19 (08/2020) 0 Hypertension Impaired glucose tolerance Seasonal allergies ST elevation myocardial infarction (STEMI) (11/2021) Statin intolerance Systolic CHF with reduced left ventricular function, NYHA class 3 UGI bleed (04/2022) 04/2022 on xarelto at time, EGD with erosive gastritis, no active bleeding, but required transfusion 2 units for Hgb of 6.8 (from ) Urinary incontinence Surgical History H/O coronary angiogram LAD stent November 2021 History of appendectomy Family History Brother Stroke Sister Stroke Father Stroke CAD (coronary artery disease) Mother Stroke Diabetes Social History (Updated 08/04/22 @ 13:57 by Julienne Guzman MD) Smoking and tobacco status: former smoker Quit status (tobacco): has quit using tobacco Former quit date comment: 50+ years ago, smoked only about 6 months Alcohol intake: never Substance/Drug Use: never Lives independently: Yes Vitals/I&O/Wt Last Vital Signs Temp 98.3 F 08/04/22 10:01 Pulse 79 08/04/22 11:57 Resp 18 08/04/22 11:57 BP 121/50 08/04/22 11:57 Pulse Ox 99 08/04/22 11:57 O2 Del Method Room Air 08/04/22 11:57 Weight last 48 hrs Weight 81.647 kg Physical Exam Narrative: Patient is awake and alert, able to provide history. Normocephalic. Pupils are equally reactive. Conjunctive a are pink and moist. Oropharynx with pink moist mucous membranes. Lungs are clear to auscultation bilaterally. Cardiovascular exam reveals an irregularly irregular rhythm without tachycardia. Abdomen is soft, no epigastric tenderness, positive bowel sounds. Skin is dry. Trace pitting edema to the lower extremities above the ankle. Speech clear, face symmetric, handgrip equal. Hemoccult card noted to be positive. This Data 08/04/22 10:30 08/04/22 10:30 Other Labs: Laboratory Results WBC 8.0 10^3/uL (4.0-10.0) 08/04/22 10:30 RBC 4.32 10^6/uL (4.1-5.3) 08/04/22 10:30 Hgb 11.5 g/dL (11.5-15.3) 08/04/22 10:30 Hct 37.7 % (37.0-47.0) 08/04/22 10:30 MCV 87.3 fl (81-99) 08/04/22 10:30 MCH 26.6 pg (28.0-34.0) L 08/04/22 10:30 MCHC 30.5 g/dL (30.0-36.0) 08/04/22 10:30 RDW 14.2 % (12.1-15.1) 08/04/22 10:30 Plt Count 230 10^3/cmm (130-400) 08/04/22 10:30 MPV 10.0 fL (7.4-10.4) 08/04/22 10:30 Neut % (Auto) 69.8 % 08/04/22 10:30 Lymph % (Auto) 20.1 % 08/04/22 10:30 [place] % (Auto) 7.8 % 08/04/22 10:30 Eos % (Auto) 2.0 % 08/04/22 10:30 Baso % (Auto) 0.0 % 08/04/22 10:30 Neut # (Auto) 5.59 10^3/uL (1.8-7.7) 08/04/22 10:30 Lymph # (Auto) 1.6 10^3/uL (0.8-4.8) 08/04/22 10:30 [place] # (Auto) 0.6 10^3/uL (0.2-0.9) 08/04/22 10:30 Eos # (Auto) 0.2 10^3/uL (0.0-0.8) 08/04/22 10:30 Baso # (Auto) 0.0 10^3/uL (0.0-0.1) 08/04/22 10:30 Nucleated RBC % (auto) 0 % 08/04/22 10:30 Nucleated RBCs # 0.0 /100WBC 08/04/22 10:30 PT 14.10 SECONDS (12.1-14.9) 08/04/22 10:30 INR 1.06 (0.8-1.2) 08/04/22 10:30 APTT 27.3 SECONDS (23.9-36.7) 08/04/22 10:30 Sodium 139 mmol/L (136-145) 08/04/22 10:30 Potassium 4.7 mmol/L (3.5-5.1) 08/04/22 10:30 Chloride 106 mmol/L (98-107) 08/04/22 10:30 Carbon Dioxide 23 mmol/L (22-29) 08/04/22 10:30 Anion Gap 14.7 (5-19) 08/04/22 10:30 BUN 30 mg/dL (8-23) H 08/04/22 10:30 Creatinine 1.0 mg/dL (0.5-0.9) H 08/04/22 10:30 GFR Calculation Not Reportable 08/04/22 10:30 Glucose 143 mg/dL (65-115) H 08/04/22 10:30 Calculated Osmolality 297 mOsm/kg (285-295) H 08/04/22 10:30 Calcium 8.6 mg/dL (8.5-10.5) 08/04/22 10:30 Total Bilirubin 0.9 mg/dL (0.15-1.2) 08/04/22 10:30 AST 38 U/L (0-32) H 08/04/22 10:30 ALT 23 U/L (0-33) 08/04/22 10:30 Alkaline Phosphatase 112 U/L (35-105) H 08/04/22 10:30 Total Protein 6.5 g/dL (6.6-8.7) L 08/04/22 10:30 Albumin 3.6 g/dL (3.5-5.2) 08/04/22 10:30 Globulin 2.9 g/dL (1.3-4.6) 08/04/22 10:30 Lipase 69 U/L (13-60) H 08/04/22 10:30 Urine Color Dark yellow (Yellow) 08/04/22 11:01 Urine Appearance Clear (CLEAR) 08/04/22 11:01 Urine pH 5 (5-7) 08/04/22 11:01 Ur Specific [place] 1.025 (1.005-1.030) 08/04/22 11:01 Urine Protein Neg (Negative) 08/04/22 11:01 Urine Glucose (UA) Norm (Normal) 08/04/22 11:01 Urine Ketones Negative (Negative) 08/04/22 11:01 Urine Blood 2+ (Negative) H 08/04/22 11:01 Urine Nitrate Negative (Negative) 08/04/22 11:01 Urine Bilirubin Neg (Negative) 08/04/22 11:01 Urine Urobilinogen Norm mg/dL (Negative) 08/04/22 11:01 Ur Leukocyte Esterase Negative (Negative) 08/04/22 11:01 Urine RBC 0-4 /hpf (0-2) H 08/04/22 11:01 Urine WBC 0-4 /hpf (0-5) H 08/04/22 11:01 Ur Squamous Epith Cells Rare /hpf (0-5) 08/04/22 11:01 Amorphous Sediment Not Reportable 08/04/22 11:01 Urine Bacteria Trace /hpf (NONE) 08/04/22 11:01 Hyaline Casts 0-4 /lpf H 08/04/22 11:01 Urine Mucus 1+ /hpf 08/04/22 11:01 Prior Visits Hgb Values 03/05/22 03/28/22 05/03/22 17:45 02:59 13:22 Hgb 14.4 12.9 11.6 05/18/22 05/19/22 07/14/22 11:18 01:23 11:56 Hgb 6.8 L 9.0 L D (after blood) 11.9 Prior Visit BUN Values 05/18/22 05/19/22 07/14/22 11:18 01: 11:56 BUN 25 H 21 20 A&P Assessment and plan (1) Melena: Present for approximately 3 days in a patient who was restarted on aspirin therapy last week by her music executive in [place]. She had upper GI bleed in April of this year from erosive gastritis. No active bleeding was seen at the time of endoscopy. She was treated with 30 days of twice daily PPI and then tra nsition to daily. She has been maintained on Plavix since then. Prior to that bleed she was on Xarelto secondary to a known history of atrial fibrillation. She has not resumed the Xarelto or other anticoagulant. She consumes a lot of juice and I suspect this along with resumption of aspirin therapy restarted last week is a contributing factor. Hemoglobin at the moment currently stable but she has azotemia compared to baseline values, slight elevation in lipase, minimally increased serum osmolality. Observation admission Serial H&H Type and screen Twice daily PPI with plan to resume for another 30 days Hold aspirin therapy I have placed a call to patient's car diologist in [place] who resumed the aspirin therapy and await a call back We will continue Plavix presently (2) History of upper gastrointestinal bleeding: In April of this year, requiring transfusion of 2 units of packed red blood cells. Endoscopy revealed erosive gastritis findings without active bleeding at that time. See Above (3) CAD (coronary artery disease): With LAD stent placed in November [address]. Chronically on Plavix, statin, Zetia, beta-blockade. EKG Continue plavix, statin, metoprolol (4) Systolic CHF with reduced left ventricular function, NYHA class 3: Chronically on Entresto and furosemide. Currently holding entresto and lasix due to blood pressures and current volume indicators in setting of suspected recurrent GI bleed; orders to resume in 1-2 days entered Monitor I&Os and volume status closely for need to resume medications sooner (5) Atrial fibrillation: Rate controlled on blockade. Not on anticoagulation secondary to history of GI bleed this year. Watchman device has been recommended though she has not made a decision regarding this yet. Telemetry monitoring Beta blockade (6) Urinary incontinence: Chronically on oxybutynin Maintain usual home dose (7) BMI 37.0-37.9, adult: Plan Glucose intolerance as noted by hyperglycemia without a history of diabetes, values similar to prior acute visits Check CK level VTE prophylaxis: SCDs, due to bleeding risk, no pharmacological prophylaxis GI Prophylaxis: Currently on BID PPI Telemetry: Monitoring for tachycardia as potential indication of acute decline in setting of GI bleed and known cardiac history Zheng: Not currently indicated Line(s): Peripheral IVs Disposition plan: Home with outpatient followup to PCP, Cardiology; anticipate holding of aspirin, continuation of plavix; patient encouraged to decrease or eliminate juices and other acidic drinks/foods, maintain avoidance of NSAIDS except as directed by a physician, report development of melena in the future as she did this time. She was given an opportunity to ask questions. Code Status: Full Code Attestations Medical Necessity Statement*: Currently anticipate a stay less than two midnights in a patient with a history of a significant GI bleed in April of this year presenting with a couple of days of melena. Although she has presently stable vital signs and hemoglobin her cardiac comorbidities in particular put her at high risk of significant adverse event in the setting of repeat significant bleeding. Plans are as noted above. Coding Level of Care Code 02770 Moderate MDM includes number and complexity of problems actively addressed during encounter, amount and/or complexity of data reviewed/ordered and described risk of complication, morbidity or mortality of management as doc umented and Moderate Time for a total of 60 minutes, includes reviewing past or interval history, examining/interviewing patient, placing orders and documenting encounter Diagnoses Melena K92.1 History of upper gastrointestinal bleeding Z87.19 CAD (coronary artery disease) I25.10 Systolic CHF with reduced left ventricular function, NYHA class 3 I50.20 Atrial fibrillation I48.91 Urinary incontinence R32 BMI 37.0-37.9, adult Z68.37
[2022-08-04] MEDS: pantoprazole 40 mg SDV 80 MG IVP (14:21)
[2022-08-04 14:24] VITALS: BP 100/52; PULSE 77; RESP 15; TEMP 36.7; O2SAT 95
[2022-08-04] MEDS: sodium chloride 0.9% 1,000 ML 50 ML IV (14:40)
[2022-08-04 15:42] LABS: Hematocrit 37.8 % (37.0-47.0); Hemoglobin 11.5 g/dL (11.5-15.3)
[2022-08-04 16:00] VITALS: BP 92/57; PULSE 80; RESP 16; TEMP 36.7; O2SAT 97
[2022-08-04 16:06] LABS: Creatine Phosphokinase 73 U/L (26-192)
[2022-08-04 20:00] VITALS: BP 125/71; PULSE 78; RESP 16; TEMP 36.7; O2SAT 98
[2022-08-04] MEDS: atorvastatin 40 mg Tablet PO (20:29)
[2022-08-04] MEDS: metoprolol tartrate 50 mg Tablet PO (20:29)
[2022-08-04 21:04] LABS: Hematocrit 36.5 % (37.0-47.0); Hemoglobin 11.9 g/dL (11.5-15.3)
[2022-08-05] VITALS: BP 96/63; PULSE 77; RESP 16; TEMP 36.7; O2SAT 97
[2022-08-05 03:05] LABS: Basophils % 0.2 %; Eosinophils # 0.2 10^3/uL (0.0-0.8); Eosinophils % 2.3 %; Hematocrit 34.8 % (37.0-47.0); Hemoglobin 10.7 g/dL (11.5-15.3); Lymphocytes % 30.4 %; Mean Corpuscular HGB Conc 30.7 g/dL (30.0-36.0); Mean Corpuscular Hemoglobin 26.4 pg (28.0-34.0); Mean Corpuscular Volume 85.7 fl (81-99); Mean Platelet Volume 9.3 fL (7.4-10.4); Monocytes # 0.6 10^3/uL (0.2-0.9); Monocytes % 9.3 %; Neutrophils # 3.79 10^3/uL (1.8-7.7); Neutrophils % 57.5 %; Nucleated Red Blood Cells % 0 %; Platelet Count 193 10^3/cmm (130-400); Red Blood Count 4.06 10^6/uL (4.1-5.3); Red Cell Distribution Width 14.1 % (12.1-15.1); White Blood Count 6.6 10^3/uL (4.0-10.0)
[2022-08-05] MEDS: pantoprazole 40 mg SDV IVP (03:05)
[2022-08-05 03:27] LABS: Alanine Aminotransferase 20 U/L (0-33); Albumin Level 3.2 g/dL (3.5-5.2); Alkaline Phosphatase 107 U/L (35-105); Anion Gap 13.9 (5-19); Aspartate Amino Transferase 24 U/L (0-32); Blood Urea Nitrogen 23 mg/dL (8-23); Calcium 8.9 mg/dL (8.5-10.5); Carbon Dioxide 22 mmol/L (22-29); Chloride 107 mmol/L (98-107); Globulin 2.7 g/dL (1.3-4.6); Glucose 98 mg/dL (65-115); Magnesium 2.1 mg/dL (1.7-2.3); Osmolality Calculated 292 mOsm/kg (285-295); Phosphorus 3.9 mg/dL (2.5-4.5); Potassium 3.9 mmol/L (3.5-5.1); Sodium 139 mmol/L (136-145); Total Bilirubin 1.2 mg/dL (0.15-1.2); Total Protein 5.9 g/dL (6.6-8.7)
[2022-08-05 04:00] VITALS: BP 105/64; PULSE 74; RESP 16; TEMP 36.8; O2SAT 98
[2022-08-05] MEDS: clopidogrel 75 mg Tablet PO (05:53)
[2022-08-05 06:00] VITALS: BMI 39.2
[2022-08-05 08:00] VITALS: BP 102/65; PULSE 90; RESP 16; TEMP 37.3; O2SAT 96
[2022-08-05] MEDS: sacubitril/valsartan 24-26 mg Tablet 1 EACH PO (08:33)
[2022-08-05] MEDS: ezetimibe 10 mg Tablet PO (08:33)
[2022-08-05] MEDS: oxybutynin chloride XL 5 MG TABLET 10 MG PO (08:33)
[2022-08-05] MEDS: metoprolol tartrate 50 mg Tablet PO (08:34)
--- NOTE | 2022-08-05 11:03 | PM.DCS ---
Discharge Providers Date of Admission: 08/04/22 12:45 Date of Discharge: August 05, 2022 Attending Provider at Admission: Julienne Guzman MD Attending Provider at Discharge: Allen Nivees MD Primary Care Provider: Jessica Fraser DO Diagnoses at Discharge Discharge Diagnosis (1) Melena: Status: Acute (2) History of upper gastrointestinal bleeding: Status: Chronic (3) CAD (coronary artery disease): Status: Chronic (4) Systolic CHF with reduced left ventricular function, NYHA class 3: Status: Chronic (5) Atrial fibrillation: Status: Chronic (6) Urinary incontinence: Status: Chronic (7) BMI 37.0-37.9, adult: Status: Chronic Reason for Visit Reason for Visit: Dr Fraser sent in due to dark stool Brief History: As per HPI: Laura Rodriguez is a 81 year old female who presented to the emergency room with chief complaint of black stools for 3 to 4 days.? She has a history of an upper GI bleed in April of this year.? Her hemoglobin back in February of this year had been 13.? By May 03, had dropped to 11.6 and on May 18 was 6.8.? At that point she had been having melena for about 6 weeks.? She received transfusion of 2 units 2 units of packed red blood cells with improvement in her hemoglobin.? EGD was done showing mild patchy gastritis with some erosive qualities.? No active active bleeding was seen at the time of the upper upper endoscopy.? She was discharged on twice daily PPI which she took for 30 days and then decrease to once daily.? Her hemoglobin in June had recovered to 11.9.? She was seen by Dr. Newton, cardiology in [place] last week and aspirin 81 mg, which had been held since her GI bleed in April, was resumed.? She has been maintained on Plavix daily due to known coronary artery disease and LAD stent placement last November for STEMI.? Other than the resumption resumption of aspirin last week, she denies any other NSAID use.? She does drink a lot juices, particularly apple and grape.? No carbonated beverage intake.? No significant heartburn, nausea or vomiting reported though does complain of a lot of gas and associated gassy abdominal discomfort.? No focal areas of abdominal pain.? At baseline has 3-4 bowel movements per day.? This usual frequency has persisted, but stools blackened and a little sticky last 3 days.? No use of bismuth products or iron.? She did not want to wait as long this time so discussed with her primary care provider, Dr Fraser, who sent to ED for further evaluation.? Hemoglobin in ER today 11.5.? Vitals presently stable.? But given comorbdities and recent significant acute blood loss anemia from UGI bleed, being admitted to observation status.? Hospital Course Hospital Course Patient was admitted under observation with concerns for possible GI bleed given recent history. She underwent serial hemoglobin checks and her hemoglobin remained stable. Patient was started on PPIs twice daily. She has been discharged in hemodynamically stable condition with advised to take Protonix twice daily for next 4 weeks followed by once daily. She is also being discharged on Carafate 4 times a day for the next 4 weeks after which she is to take it twice daily. She is to hold off on taking her aspirin for next 2 weeks. She is to repeat her hemoglobin in the next 1 week and 1 week after initiation of baby aspirin. Discharge plan was discussed in detail with the patient and she verbalized understanding. All the questions were answered. Physical Exam Narrative: General: Patient is awake and alert, able to provide history. Normocephalic. HEENT: Pupils are equally reactive. Conjunctive a are pink and moist. Oropharynx with pink moist mucous membranes. Lungs: Clear to auscultation bilaterally. Cardiovascular exam: Reveals an irregularly irregular rhythm without tachycardia. Abdomen: Soft, no epigastric tenderness, positive bowel sounds. Skin is dry. Trace pitting edema to the lower extremities above the ankle. Discharge Data Studies Completed and Pending Pending at discharge Category Date Time Status Occult Blood Stool [Immunochemical Fecal OCB] Routine Lab 08/04/22 11:06 Ordered Laboratory Results WBC 6.6 10^3/uL (4.0-10.0) 08/05/22 02:53 RBC 4.06 10^6/uL (4.1-5.3) L 08/05/22 02:53 Hgb 10.7 g/dL (11.5-15.3) L 08/05/22 02:53 Hct 34.8 % (37.0-47.0) L 08/05/22 02:53 MCV 85.7 fl (81-99) 08/05/22 02:53 MCH 26.4 pg (28.0-34.0) L 08/05/22 02:53 MCHC 30.7 g/dL (30.0-36.0) 08/05/22 02:53 RDW 14.1 % (12.1-15.1) 08/05/22 02:53 Plt Count 193 10^3/cmm (130-400) 08/05/22 02:53 MPV 9.3 fL (7.4-10.4) 08/05/22 02:53 Neut % (Auto) 57.5 % 08/05/22 02:53 Lymph % (Auto) 30.4 % 08/05/22 02:53 [place] % (Auto) 9.3 % 08/05/22 02:53 Eos % (Auto) 2.3 % 08/05/22 02:53 Baso % (Auto) 0.2 % 08/05/22 02:53 Neut # (Auto) 3.79 10^3/uL (1.8-7.7) 08/05/22 02:53 Lymph # (Auto) 2.0 10^3/uL (0.8-4.8) 08/05/22 02:53 [place] # (Auto) 0.6 10^3/uL (0.2-0.9) 08/05/22 02:53 Eos # (Auto) 0.2 10^3/uL (0.0-0.8) 08/05/22 02:53 Baso # (Auto) 0.0 10^3/uL (0.0-0.1) 08/05/22 02:53 Nucleated RBC % (auto) 0 % 08/05/22 02:53 Nucleated RBCs # 0.0 /100WBC 08/05/22 02:53 PT 14.10 SECONDS (12.1-14.9) 08/04/22 10:30 INR 1.06 (0.8-1.2) 08/04/22 10:30 APTT 27.3 SECONDS (23.9-36.7) 08/04/22 10:30 Sodium 139 mmol/L (136-145) 08/05/22 02:53 Potassium 3.9 mmol/L (3.5-5.1) 08/05/22 02:53 Chloride 107 mmol/L (98-107) 08/05/22 02:53 Carbon Dioxide 22 mmol/L (22-29) 08/05/22 02:53 Anion Gap 13.9 (5-19) 08/05/22 02:53 BUN 23 mg/dL (8-23) 08/05/22 02:53 Creatinine 0.9 mg/dL (0.5-0.9) 08/05/22 02:53 GFR Calculation Not Reportable 08/05/22 02:53 Glucose 98 mg/dL (65-115) 08/05/22 02:53 Calculated Osmolality 292 mOsm/kg (285-295) 08/05/22 02:53 Calcium 8.9 mg/dL (8.5-10.5) 08/05/22 02:53 Phosphorus 3.9 mg/dL (2.5-4.5) 08/05/22 02:53 Magnesium 2.1 mg/dL (1.7-2.3) 08/05/22 02:53 Total Bilirubin 1.2 mg/dL (0.15-1.2) 08/05/22 02:53 AST 24 U/L (0-32) 08/05/22 02:53 ALT 20 U/L (0-33) 08/05/22 02:53 Alkaline Phosphatase 107 U/L (35-105) H 08/05/22 02:53 Creatine Kinase 73 U/L (26-192) 08/04/22 10:30 Total Protein 5.9 g/dL (6.6-8.7) L 08/05/22 02:53 Albumin 3.2 g/dL (3.5-5.2) L 08/05/22 02:53 Globulin 2.7 g/dL (1.3-4.6) 08/05/22 02:53 Lipase 69 U/L (13-60) H 08/04/22 10:30 Urine Color Dark yellow (Yellow) 08/04/22 11:01 Urine Appearance Clear (CLEAR) 08/04/22 11:01 Urine pH 5 (5-7) 08/04/22 11:01 Ur Specific [place] 1.025 (1.005-1.030) 08/04/22 11:01 Urine Protein Neg (Negative) 08/04/22 11:01 Urine Glucose (UA) Norm (Normal) 08/04/22 11:01 Urine Ketones Negative (Negative) 08/04/22 11:01 Urine Blood 2+ (Negative) H 08/04/22 11:01 Urine Nitrate Negative (Negative) 08/04/22 11:01 Urine Bilirubin Neg (Negative) 08/04/22 11:01 Urine Urobilinogen Norm mg/dL (Negative) 08/04/22 11:01 Ur Leukocyte Esterase Negative (Negative) 08/04/22 11:01 Urine RBC 0-4 /hpf (0-2) H 08/04/22 11:01 Urine WBC 0-4 /hpf (0-5) H 08/04/22 11:01 Ur Squamous Epith Cells Rare /hpf (0-5) 08/04/22 11:01 Amorphous Sediment Not Reportable 08/04/22 11:01 Urine Bacteria Trace /hpf (NONE) 08/04/22 11:01 Hyaline Casts 0-4 /lpf H 08/04/22 11:01 Urine Mucus 1+ /hpf 08/04/22 11:01 Blood Type A Positive 08/04/22 15:10 Rho(D) Type Positive 08/04/22 15:10 Antibody Screen Negative 08/04/22 15:10 Vitals Last Vital Signs Temp 99.2 F 08/05/22 08:00 Pulse 90 08/05/22 08:00 Resp 16 08/05/22 08:00 BP 102/65 08/05/22 08:00 Pulse Ox 96 08/05/22 08:00 O2 Del Method Room Air 08/05/22 08:00 Discharge Plan Discharge Patient Disposition: Home Condition: Stable Prescriptions: New Carafate 100 mg/mL suspension 1 g PO Q6H 60 Days Qty: 2400 0RF Rx Instructions: 4 times daily for 4 weeks, then 2 times daily Continued ezetimibe [Zetia] 10 mg tablet 10 mg PO DAILY Qty: 90 3RF oxybutynin chloride 10 mg tablet extended release 24hr 10 mg PO QAM atorvastatin 40 mg tablet 40 mg PO BEDTIME potassium chloride 10 mEq tablet extended release 10 meq PO QAM Nitrostat 0.4 mg Tablet, Sublingual 0.4 mg SUBLINGUAL Q5M PRN (Reason: Chest Pain) Rx Instructions: do not exceed 3 doses per episode Entresto 24-26 mg tablet 1 tab PO BID Lasix 40 mg tablet 80 mg PO DAILY@15 clopidogrel 75 mg tablet 75 mg PO QAM metoprolol tartrate 50 mg tablet 50 mg PO BID Protonix 40 mg tablet,delayed release (DR/EC) 40 mg PO BID Qty: 60 0RF Rx Instructions: Twice daily for 4 weeks and then daily Held aspirin 81 mg Tablet,Delayed Release (Dr/Ec) 81 mg PO QAM Hold Instructions: Resume on 08/19/22. Discharge Orders: Discharge Order (Routine); Ordered 08/05/22 Ordered By: Allen Nieves Referrals: Jessica Fraser DO [Primary Care Provider] - 08/10/22 10:00 am Discharge Diet: GI Soft Discharge Activity: Resume usual activity and Increase activity as tolerated Patient Instructions: Sucralfate (By mouth), Opioid Safety Activity Restrictions/Additional Instructions: Repeat hemoglobin next week. Restart aspirin in 2 weeks and then repeat hemoglobin in 1 week after that Protonix 2 times daily for 1month and then 1 time daily, carafate 4 times a day for 1month and then 2 times a day. Discharge Attestations Time Spent in Discharge Care*: greater than 30 min Specific Discharge Activities: educating patient, discussing with pcp/other providers, discussing with manager of case management/social workers/dc planners, documenting/other paperwork and evaluating patient/reviewing data Status at Discharge: Cognitive status at discharge: cognitively intact, Behavioral status at discharge: cooperative, Functional status at discharge: other assisted ambulation, Overall status at discharge: patient is back to baseline Quality Metrics Clinical Quality Measures [ No reported AMI, CVA or VTE this stay] Coding Level of Care Code 85334 Total time (in minutes) for Discharge: 50 Diagnoses Melena K92.1 History of upper gastrointestinal bleeding Z87.19 CAD (coronary artery disease) I25.10 Systolic CHF with reduced left ventricular function, NYHA class 3 I50.20 Atrial fibrillation I48.91 Urinary incontinence R32 BMI 37.0-37.9, adult Z68.37
[2022-08-05 12:00] VITALS: BP 103/62; PULSE 89; RESP 16; TEMP 36.8; O2SAT 96
[2022-08-05 12:52] VITALS: BP 103/62; PULSE 89; RESP 16; TEMP 36.8; O2SAT 96
--- NOTE | 2022-08-05 12:54 | PC.NURSE ---
patient verbalized understanding of discharge instructions, home medications, and follow up appointments.
== END 2022-08-05 12:53 | disposition home or self-care (01) ==
LOC: ER 10:32 → MEDSURG 12:45
PROVIDERS: Admitting Provider Hospitalist; Emergency Provider Family Medicine; PCP Family Medicine; Visit Provider Student in an Organized Health Care Education/Training Program
DX: K92.1 Melena (principal); Z87.19 Personal history of other diseases of the digestive system; I25.10 Atherosclerotic heart disease of native coronary artery without angina pectoris; I50.20 Unspecified systolic (congestive) heart failure; I48.91 Unspecified atrial fibrillation; R32 Unspecified urinary incontinence; Z68.37 Body mass index [BMI] 37.0-37.9, adult; Z79.82 Long term (current) use of aspirin; I25.2 Old myocardial infarction; Z87.891 Personal history of nicotine dependence
CPT/HCPCS: 36415; 80053; 81001; 82550; 83690; 83735; 84100; 85014; 85018; 85025; 85610; 85730; 86850; 86900; 96374; 99285; C9113; G0378; J7030

== ENCOUNTER 2022-10-16 10:39 | Emergency (ER) | payer MEDICARE, SELFPAY ==
[2022-10-16] VITALS (7 sets, daily range): BP systolic 93–139; BP diastolic 66–96; PULSE 84–100; RESP 20–30; TEMP 36.9; O2SAT 96–100; BMI 39.6
--- NOTE | 2022-10-16 10:50 | XRR_ITS ---
PROCEDURE INFORMATION: Exam: XR Chest Exam date and time: 10/16/2022 11:31 AM Age: 82 years old Clinical indication: Shortness of breath; Prior surgery; Surgery date: 6+ months; Surgery type: Stent; Additional info: Worsening SOB TECHNIQUE: Imaging protocol: Radiologic exam of the chest. Views: 1 view. COMPARISON: CR XR chest 1V portable [id number] 05/18/2022 10:52 AM FINDINGS: Lungs: Lung volumes are decreased. There is interval development indistinct ground-glass opacities with peribronchial cuffing mid-lower lung zones bilaterally, nonspecific and may be secondary to CHF or bilateral lower lobe pneumonia. Pleural spaces: Unremarkable. No pleural effusion. No pneumothorax. Heart/Mediastinum: Heart is significantly enlarged, unchanged. Pulmonary vascular distribution indicating elevated central venous pressure. Bones/joints: Unremarkable for age. XR/XR chest 1V portable [id number] IMPRESSION: Cardiomegaly with elevated central venous pressure and lower lobe opacities as discussed above.
--- NOTE | 2022-10-16 11:10 | ECG_ITS ---
[facility] Test Date: 2022-10-16 Pat Name: Laura Rodriguez Department: Room: Gender: Female Assistant Credit Manager: : 1940 Requested By: Reji Wang Order Number: [id number] Valentino MD: Yimi Paz M.D. Measurements Intervals [place] Rate: 97 P: 0 NV: 0 QRS: 82 QRSD: 85 T: 7 QT: 328 QTc: 417 Interpretive Statements ATRIAL FIBRILLATION LOW QRS VOLTAGE IN PRECORDIAL LEADS [QRS DEFLECTION < 1.0 mV IN CHEST LEADS] POSSIBLE ANTERIOR MYOCARDIAL INFARCTION , PROBABLY OLD [30 ms Q WAVE IN V3/V4, OR R < 0.2 mV IN V4] ABNORMAL RHYTHM ECG Compared to ECG 05/18/2022 16:57:17 No significant changes Electronically Signed On 10-16-2022 18:16:29 CDT by Yimi Paz M.D. [id number]
--- NOTE | 2022-10-16 11:23 | ED_ITS ---
HPI - SOB/Dyspnea General: Chief Complaint: Shortness of Breath/Dyspnea Stated Complaint: sob Time Seen by Provider: 10/16/22 10:58 History of Present Illness: HPI Narrative: Presents to the ER with a chief complaint of worsening shortness of breath over about the last 3 days. Patient said about 3 days ago she got really bad and yesterday and 2 days ago she was improved even had an echo here yesterday but she does not know the results of. And then today this morning at about 4:30 in the morning start getting worse and just been going downhill. Patient wears oxygen as needed but usually does not needed during the daytime but she is on 4 L per nasal cannula here and satting 98%. Patient does have a history of CHF, A-fib and she thinks this may just be a flareup of it. Patient has currently on Xarelto Plavix Entresto and aspirin. 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) COVID-19 (08/2020) 0 Hypertension Impaired glucose tolerance Seasonal allergies ST elevation myocardial infarction (STEMI) (11/2021) Statin intolerance Systolic CHF with reduced left ventricular function, NYHA class 3 UGI bleed (04/2022) 04/2022 on xarelto at time, EGD with erosive gastritis, no active bleeding, but required transfusion 2 units for Hgb of 6.8 (from 11) Urinary incontinence Surgical History H/O coronary angiogram LAD stent November 2021 History of appendectomy Family History Brother Stroke Sister Stroke Father Stroke CAD (coronary artery disease) Mother Stroke Diabetes Social History (Updated 08/04/22 @ 13:57 by Julienne Guzman MD) Smoking and tobacco status: former smoker Quit status (tobacco): has quit using tobacco Former quit date comment: 50+ years ago, smoked only about 6 months Alcohol intake: never Substance/Drug Use: never Lives independently: Yes Physical Exam Const: COMMON NORMALS: no acute distress, average body habitus, patient orien leilani x3, no limitations, healthy appearing, alert and well nourished HENMT: COMMON NORMALS: normocephalic, atraumatic, hearing grossly normal bilat erally, external ears normal, Normal external nose present and moist oral mucous membranes HEAD & SCALP: normocephalic and atraumatic NOSE: Normal external nose present EXTERNAL EAR: Yes external ears normal Eye: COMMON NORMALS: Equal, round and reactive pupils present, EOMs intact bilaterally, conjunctivae normal and no scleral icterus CONJUNCTIVA: Yes conjunctivae normal PUPIL: Yes Equal, round and reactive pupils present Neck/C-Spine: COMMON NORMALS: full ROM, no lymphadenopathy, supple, no meningeal signs, no JVD and Thyroid normal THYROID: Thyroid normal Lymph: LYMPHATIC: no lymphadenopathy noted Chest: COMMONS NORMALS: normal inspection of the chest and normal palpation of entire chest wall Resp: COMMON NORMALS: normal respiratory effort, No retractions, No use of accessory muscles and clear to auscultation bilaterally AUSCULTATION: clear to auscultation bilaterally Cardio: COMMON NORMALS: no JVD, S1 normal heart sound present, S2 normal heart sound present, No gallops present (Cardio), No clicks present (Cardio), No murmurs present (Cardio) and No rub (Cardio); negative for regular rate (Regularly irregular rhythm at approximately 100 bpm) RATE: abnormal rate (Regularly irregular rhythm at approximately 100 bpm) HEART SOUNDS: S1 normal heart sound present and S2 normal heart sound present GI: COMMON NORMALS: Normal to inspection, nondistended, normoactive bowel sounds present, Soft to palpation, non-tender, No hepatosplenomegaly present and no masses PALPATION: Yes Soft to palpation and Yes No hepatosplenomegaly present : COMMON NORMALS: Yes no CVA tenderness BLADDER/KIDNEY EXAM: Yes no CVA tenderness Back/Pelvis: COMMON NORMALS: no CVA tenderness Neuro: COMMON NORMALS: patient oriented x3 SENSORIUM/ORIENTATION: Yes alert MENINGEAL SIGNS: Yes no meningeal signs Course Vital Signs: Vital signs: Vital Signs Temperature 98.4 F 10/16/22 10:43 Pulse Rate 95 10/16/22 13:30 Respiratory Rate 30 H 10/16/22 12:46 Blood Pressure 139/96 10/16/22 13:30 Pulse Oximetry 97 10/16/22 13:30 Oxygen Delivery Me thod Nasal Cannula 10/16/22 13:30 Oxygen Flow Rate 5 10/16/22 12:46 MDM - SOB/Dyspnea Medical Decision Making Presents to the ER with worsening shortness of breath and has been having to use more oxygen than normal. Chest x-ray was done which showed cardiomegaly and low er lobe opacities that could represent pneumonia. Patient had elevated white count at 15.3. Her BNP was elevated at approximately 800. Patient was given additional dose of Lasix as well as Zosyn in her IV. Patient be discharged home on Omnicef. Patient to follow-up with her PCP in approximately 7 days or sooner as needed. Differential Diagnosis Likely congestive heart failure; Unlikely acute exacerbation of chronic obstructive airways disease, community acquired pneumonia, asthma with exacerbation or pulmonary embolism Medical Records I reviewed the patient's medical records. Lab Data I reviewed the patient's lab results. 10/16/22 11:08 10/16/22 11:08 Labs/Radiology: Radiology Impressions Chest X-Ray 10/16/22 10:50 IMPRESSION: Cardiomegaly with elevated central venous pressure and lower lobe opacities as discussed above. Laboratory Results WBC 15.34 10^3/uL (3.29-11.43) H 10/16/22 11:08 RBC 4.87 10^6/uL (3.85-5.65) 10/16/22 11:08 Hgb 12.40 g/dL (11.27-16.99) 10/16/22 11:08 Hct 41.0 % (36-47) 10/16/22 11:08 MCV 84.2 fl (85-98) L 10/16/22 11:08 MCH 25.5 pg (27-33) L 10/16/22 11:08 MCHC 30.2 g/dL (30-55) 10/16/22 11:08 RDW 17.4 % (12.1-15.1) H 10/16/22 11:08 Plt Count 211 10^3/cmm (157-399) 10/16/22 11:08 MPV 9.9 fL (7.4-10.4) 10/16/22 11:08 Neut % (Auto) 88.6 % 10/16/22 11:08 Lymph % (Auto) 4.0 % 10/16/22 11:08 [place] % (Auto) 4.2 % 10/16/22 11:08 Eos % (Auto) 2.7 % 10/16/22 11:08 Baso % (Auto) 0.1 % 10/16/22 11:08 Neut # (Auto) 13.58 10^3/uL (1.8-7.7) H 10/16/22 11:08 Lymph # (Auto) 0.6 10^3/uL (0.8-4.8) L 10/16/22 11:08 [place] # (Auto) 0.6 10^3/uL (0.2-0.9) 10/16/22 11:08 Eos # (Auto) 0.4 10^3/uL (0.0-0.8) 10/16/22 11:08 Baso # (Auto) 0.0 10^3/uL (0.0-0.1) 10/16/22 11:08 Nucleated RBC % (auto) 0 % 10/16/22 11:08 Nucleated RBCs # 0.0 /100WBC 10/16/22 11:08 Sodium 139 mmol/L (136-145) 10/16/22 11:08 Potassium 4.1 mmol/L (3.5-5.1) 10/16/22 11:08 Chloride 102 mmol/L (98-107) 10/16/22 11:08 Carbon Dioxide 26 mmol/L (22-29) 10/16/22 11:08 Anion Gap 15.1 (5-19) 10/16/22 11:08 BUN 21 mg/dL (8-23) 10/16/22 11:08 Creatinine 1.0 mg/dL (0.5-0.9) H 10/16/22 11:08 GFR Calculation Not Reportable 10/16/22 11:08 Glucose 165 mg/dL (65-115) H 10/16/22 11:08 Calculated Osmolality 295 mOsm/kg (285-295) 10/16/22 11:08 Calcium 8.6 mg/dL (8.5-10.5) 10/16/22 11:08 Total Bilirubin 1.4 mg/dL (0.15-1.2) H 10/16/22 11:08 AST 23 U/L (0-32) 10/16/22 11:08 ALT 16 U/L (0-33) 10/16/22 11:08 Alkaline Phosphatase 99 U/L (35-105) 10/16/22 11:08 NT-Pro-B Natriuret Pep 836 pg/mL (0-450) H 10/16/22 11:08 Total Protein 7.0 g/dL (6.6-8.7) 10/16/22 11:08 Albumin 3.8 g/dL (3.5-5.2) 10/16/22 11:08 Globulin 3.2 g/dL (1.3-4.6) 10/16/22 11:08 SARS-CoV-2 Ag (Rapid) negative (Negative) 10/16/22 10:56 EKG Data EKG 1: I personally reviewed and interpreted this EKG as follows: EKG Interpretation Date: 10/16/22 EKG interpretation time: 11:29 Prior EKG tracings: not available for review Interpretation: EKG shows ventricular rate 97 beats a minute, QRS duration 85, QTc 382, atrial fibrillation, U waves in V3 and V4 Discharge Plan Discharge Patient Disposition: Home Clinical Impression: Congestive heart failure Qualifiers: Heart failure type: unspecified Heart failure chronicity: acute on chronic Qualified Code(s): I50.9 - Heart failure, unspecified Pneumonia Qualifiers: Pneumonia type: due to unspecified organism Laterality: bilateral Lung location: lower lobe of lung Qualified Code(s): J18.9 - Pneumonia, unspecified organism Condition: Stable Prescriptions: New cefdinir 300 mg capsule 300 mg PO BID 10 Days Qty: 20 0RF No Action ezetimibe [Zetia] 10 mg tablet 10 mg PO DAILY Qty: 90 3RF oxybutynin chloride 10 mg tablet extended release 24hr 10 mg PO QAM atorvastatin 40 mg tablet 40 mg PO BEDTIME potassium chloride 10 mEq tablet extended release 10 meq PO QAM aspirin 81 mg Tablet,Delayed Release (Dr/Ec) 81 mg PO QAM Hold Instructions: Resume on 08/19/22. Entresto 24-26 mg tablet 1 tab PO BID furosemide [Lasix] 40 mg tablet 80 mg PO DAILY@15 clopidogrel 75 mg tablet 75 mg PO QAM metoprolol tartrate 50 mg tablet 50 mg PO BID pantoprazole [Protonix] 40 mg tablet,delayed release (DR/EC) 40 mg PO BID Qty: 60 0RF Rx Instructions: Twice daily for 4 weeks and then daily sucralfate 100 mg/mL suspension See Rx Instructions .ROUTE .COMPLEX Rx Instructions: 10 ML ORALLY 4 TIME DAILY FOR 4 WEEKS, THEN 10 ML TWICE DAILY FOR 4 WEEKS. gabapentin 100 mg capsule 100 mg PO BID levofloxacin 500 mg Tablet 500 mg PO DAILY loratadine 10 mg Tablet 10 mg PO DAILY PRN (Reason: Allergic Symptoms) nitrofurantoin monohyd/m-cryst 100 mg capsule 100 mg PO BID prednisone 20 mg Tablet 20 mg PO DAILY Discharge Orders: Discharge ED (Routine); Ordered 10/16/22 Ordered By: Reji Wang Referrals: Jessica Fraser DO [Primary Care Provider] - 1 week Patient Instructions: Heart Failure (ED), Pneumonia (ED) Activity Restrictions/Additional Instructions: Take all your medicine as directed please follow-up with your family practice physician within 1 week or as needed. If your symptoms worsen please feel free to come back to the ER for further evaluation and treatment. Coding Level of Care Code ED Irrigation Flume Layer for Graham Gutierres
[2022-10-16 11:26] LABS: Basophils % 0.1 %; Eosinophils # 0.4 10^3/uL (0.0-0.8); Eosinophils % 2.7 %; Lymphocytes # 0.6 10^3/uL (0.8-4.8); Mean Corpuscular HGB Conc 30.2 g/dL (30-55); Mean Corpuscular Hemoglobin 25.5 pg (27-33); Mean Corpuscular Volume 84.2 fl (85-98); Mean Platelet Volume 9.9 fL (7.4-10.4); Monocytes # 0.6 10^3/uL (0.2-0.9); Monocytes % 4.2 %; Neutrophils # 13.58 10^3/uL (1.8-7.7); Neutrophils % 88.6 %; Nucleated Red Blood Cells % 0 %; Platelet Count 211 10^3/cmm (157-399); Red Blood Count 4.87 10^6/uL (3.85-5.65); Red Cell Distribution Width 17.4 % (12.1-15.1); White Blood Count 15.34 10^3/uL (3.29-11.43)
[2022-10-16 11:27] LABS: SARS Covid-2 Antigen negative (Negative)
[2022-10-16 11:46] LABS: Alanine Aminotransferase 16 U/L (0-33); Albumin Level 3.8 g/dL (3.5-5.2); Alkaline Phosphatase 99 U/L (35-105); Aspartate Amino Transferase 23 U/L (0-32); Blood Urea Nitrogen 21 mg/dL (8-23); Calcium 8.6 mg/dL (8.5-10.5); Carbon Dioxide 26 mmol/L (22-29); Chloride 102 mmol/L (98-107); Globulin 3.2 g/dL (1.3-4.6); Glucose 165 mg/dL (65-115); Osmolality Calculated 295 mOsm/kg (285-295); Sodium 139 mmol/L (136-145); Total Bilirubin 1.4 mg/dL (0.15-1.2)
[2022-10-16 11:47] LABS: Anion Gap 15.1 (5-19); Potassium 4.1 mmol/L (3.5-5.1)
[2022-10-16] MEDS: ipratropium-albuterol 3 mL Neb INHALATION (11:48)
[2022-10-16 11:50] LABS: NT Pro B Type Natriuretic Pept 836 pg/mL (0-450)
[2022-10-16] MEDS: FUROsemide 10 mg/mL SDV 4mL 40 MG IVP (12:22)
--- NOTE | 2022-10-16 12:47 | PC.NURSE ---
CHECKED ON PT, PT ALERT/ORIENTED IN ROOM WITH FAMILY, WAITING ON RESULTS
[2022-10-16] MEDS: piperacillin-tazobactam 3.375 GM in sodium chloride 0.9% (plus) 50 ML IV (14:28)
== END 2022-10-16 15:16 | disposition home or self-care (01) ==
PROVIDERS: Physician Assistant; Emergency Provider Emergency Medicine; PCP Family Medicine
DX: I50.9 Heart failure, unspecified (principal); J18.9 Pneumonia, unspecified organism
CPT/HCPCS: 36415; 71045; 80053; 83880; 85025; 87040; 87426; 93005; 94640; 96374; 96375; 99285; J1940; J2543

== ENCOUNTER 2022-10-20 17:46 | Inpatient (IN) | payer MEDICARE, SELFPAY ==
[2022-10-20 17:48] VITALS: BP 156/96; PULSE 100; RESP 22; TEMP 37.3; O2SAT 96; BMI 38.9
--- NOTE | 2022-10-20 18:13 | XRR_ITS ---
PROCEDURE INFORMATION: Exam: XR Chest Exam date and time: 10/20/2022 6:25 PM Age: 82 years old Clinical indication: Shortness of breath; Additional info: Dyspnea TECHNIQUE: Imaging protocol: Radiologic exam of the chest. Views: 1 view. COMPARISON: CR XR chest 1V portable [id number] 10/16/2022 11:31 AM FINDINGS: Lungs: Ill-defined opacities at the lung bases. Increased interstitial lung markings. Pleural spaces: Bilateral small volume pleural effusions. No pneumothorax. Heart/Mediastinum: Improvement of the cardiomegaly seen on prior study. Bones/joints: Unremarkable. XR/XR chest 1V portable [id number] IMPRESSION: Bilateral small volume pleural effusions, with ill-defined opacities of the lung bases, most likely corresponding atelectasis. Increased interstitial lung markings suggestive of pulmonary edema.
--- NOTE | 2022-10-20 18:47 | ED_ITS ---
HPI - SOB/Dyspnea General: Chief Complaint: Shortness of Breath/Dyspnea Stated Complaint: SOB Time Seen by Provider: 10/20/22 17:48 History of Present Illness: HPI Narrative: 82-year-old female presents the emergency department for shortness of breath. She says she started feeling a little unwell last Wednesday but was okay on . On Wednesday she felt very short of breath. She says she had a cough productive of clear sputum. She was seen in the emergency department and found to have some bilateral lower lobe infiltrates. It looks like there was diagnosis of possible pneumonia but more likely congestive heart failure. Patient reports she has had to use more oxygen than usual. She states that she was on up to 4-1/2 L at nighttime but began to have to use oxygen during the day. She was still able to get around her house with this increased oxygen during the day but it was limited to going to the bathroom and kitchen. She was not able to do her usual activity. Today she had a fever of 99.6. She has had no other elevated temperature. She endorses bilateral lower extremity swelling and orthopnea. She has had an echocardiogram relatively recently. It did show apical hypokinesis which was new compared to prior echocardiogram Associated symptoms: Reports orthopnea; Deny abdominal pain, chest pain, extremity pain, hemoptysis, nausea, syncope or vomiting Review of Systems General: Reports: 10 or more systems reviewed and unremarkable except in HPI and below Const: Denies: chills or body aches Eyes: Denies: change in vision ENMT: Denies: throat pain Card: Reports: edema, swelling of feet/ankles, dyspnea on exertion and orthopnea; Denies: chest pain or syncope Resp: Reports: dyspnea, productive cough (Clear phlegm) and wheezing; Denies: pain on inspiration or hemoptysis GI: Denies: abdominal pain, nausea, vomiting or diarrhea : Denies: flank pain, dysuria or urinary frequency Musc: Denies: neck pain, back pain or extremity pain Skin/Breast: Denies: rash or erythema Neuro: Denies: headache(s), numbness in extremities, weakness in extremities, lack of coordination or difficulty walking [facility] ED PFSH: Medical History (Updated 10/20/22 @ 21:44 by Zev Balderrama MD) Acne rosacea Atrial fibrillation BMI 37.0-37.9, adult CAD (coronary artery disease) 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) COVID-19 (08/2020) 0 Hypertension Impaired glucose tolerance Seasonal allergies ST elevation myocardial infarction (STEMI) (11/2021) Statin intolerance Systolic CHF with reduced left ventricular function, NYHA class 3 UGI bleed (04/2022) 04/2022 on xarelto at time, EGD with erosive gastritis, no active bleeding, but required transfusion 2 units for Hgb of 6.8 (from 11) Urinary incontinence Surgical History H/O coronary angiogram LAD stent November 2021 History of appendectomy Family History Brother Stroke Sister Stroke Father Stroke CAD (coronary artery disease) Mother Stroke Diabetes Social History (Updated 08/04/22 @ 13:57 by Julienne Guzman MD) Smoking and tobacco status: former smoker Quit status (tobacco): has quit using tobacco Former quit date comment: 50+ years ago, smoked only about 6 months Alcohol intake: never Substance/Drug Use: never Lives independently: Yes Physical Exam Const: COMMON NORMALS: no limitations, alert and well nourished EXAM LIMITATIONS: no altered mental status HENMT: COMMON NORMALS: normocephalic, atraumatic and external ears normal HEAD & SCALP: normocephalic and atraumatic EXTERNAL EAR: Yes external ears normal MOUTH: no muffled voice Eye: COMMON NORMALS: EOMs intact bilaterally, conjunctivae normal and no scleral icterus CONJUNCTIVA: Yes conjunctivae normal Neck/C-Spine: COMMON NORMALS: no JVD GENERAL: Yes normal visual inspection and Yes trachea midline Resp: EFFORT & INSPECTION: Yes symmetric chest movement, Yes tachypneic, Yes labored, No Actively coughing, Yes uses accessory muscles, No tracheal deviation and No tripod positioning AUSCULTATION: crackles and wheezes Cardio: COMMON NORMALS: no JVD, regular rate and regular rhythm RATE: regular rate RHYTHM: regular rhythm GI: COMMON NORMALS: Soft to palpation and non-tender PALPATION: Yes Soft to palpation and No Guarding due to palpation present (GI) Extremity: NARRATIVE EXTREMITY EXAM: Bilateral lower extremity edema, 1+ pitting Neuro: COMMON NORMALS: moves all extremities, no focal motor deficits and no sensory deficits noted SENSORIUM/ORIENTATION: Yes alert SPEECH: speech normal Psych: COMMON NORMALS: mental status grossly normal, Normal thought process present, cooperative, normal affect and speech normal SPEECH: Yes normal speech THOUGHT PROCESS: Normal thought process present Skin: COMMON NORMALS: no rashes or lesions noted, turgor normal and no jaundice GENERAL SKIN EXAM: no rashes or lesions noted and turgor normal Course Vital Signs: Vital signs: Vital Signs Temperature 99.1 F 10/20/22 17:48 Pulse Rate 99 10/20/22 20:30 Respiratory Rate 18 10/20/22 20:30 Blood Pressure 156/96 10/20/22 17:48 Pulse Oximetry 100 10/20/22 20:30 Oxygen Delivery Me thod Nasal Cannula 10/20/22 19:37 Oxygen Flow Rate 1.5 10/20/22 19:37 MDM - SOB/Dyspnea Medical Decision Making Differential diagnosis includes congestive heart failure exacerbation, pulmonary infection, reactive airway disease, pleural effusion, COVID, ischemic cardiomyopathy, pulmonary embolism, multiple others. Overall, I suspect congestive heart failure exacerbation. Patient given 40 mg of Lasix IV. She did have some wheezing and said that she responded pretty well to the albuterol treatment they gave her in route. I went ahead and gave her a single dose of Solu-Medrol as well as 2 puffs of Ventolin. I am going to go ahead and rule out COVID. I think this is less likely to be pneumonia. I have not started empiric antibiotics but I have obtained a lactic, cultures, procalcitonin to further risk stratify for infectious etiology. Patient was initially requiring 4 and half liters for hypoxia. I have her currently on 1.5 L and she is 97%, albeit with a slightly elevated respiratory rate. She's needing oxygen, which is a change from her baseline, and she persistently has tachypnea. I discussed with the patient and discussed with the hospitalist. After the hospitalist saw the patient we all discussed and were planning to admit the patient. Were going to do a CT scan of her chest for further evaluation of these pleural effusions and pulmonary edema. It would also be reasonable to rule out pulmonary embolism. Admission orders placed. Lab Data 10/20/22 19:05 10/20/22 19:05 Labs/Radiology: Radiology Impressions Chest X-Ray 10/20/22 18:13 IMPRESSION: Bilateral small volume pleural effusions, with ill-defined opacities of the lung bases, most likely corresponding atelectasis. Increased interstitial lung markings suggestive of pulmonary edema. Laboratory Results WBC 11.58 10^3/uL (3.29-11.43) H 10/20/22 19:05 RBC 4.40 10^6/uL (3.85-5.65) 10/20/22 19:05 Hgb 11.40 g/dL (11.27-16.99) 10/20/22 19:05 Hct 37.3 % (36-47) 10/20/22 19:05 MCV 84.8 fl (85-98) L 10/20/22 19:05 MCH 25.9 pg (27-33) L 10/20/22 19:05 MCHC 30.6 g/dL (30-55) 10/20/22 19:05 RDW 17.2 % (12.1-15.1) H 10/20/22 19:05 Plt Count 247 10^3/cmm (157-399) 10/20/22 19:05 MPV 9.7 fL (7.4-10.4) 10/20/22 19:05 Neut % (Auto) 66.9 % 10/20/22 19:05 Lymph % (Auto) 12.3 % 10/20/22 19:05 [place] % (Auto) 9.6 % 10/20/22 19:05 Eos % (Auto) 10.7 % 10/20/22 19:05 Baso % (Auto) 0.1 % 10/20/22 19:05 Neut # (Auto) 7.74 10^3/uL (1.8-7.7) H 10/20/22 19:05 Lymph # (Auto) 1.4 10^3/uL (0.8-4.8) 10/20/22 19:05 [place] # (Auto) 1.1 10^3/uL (0.2-0.9) H 10/20/22 19:05 Eos # (Auto) 1.2 10^3/uL (0.0-0.8) H 10/20/22 19:05 Baso # (Auto) 0.0 10^3/uL (0.0-0.1) 10/20/22 19:05 Nucleated RBC % (auto) 0 % 10/20/22 19:05 Nucleated RBCs # 0.0 /100WBC 10/20/22 19:05 Sodium 141 mmol/L (136-145) 10/20/22 19:05 Potassium 4.6 mmol/L (3.5-5.1) 10/20/22 19:05 Chloride 103 mmol/L (98-107) 10/20/22 19:05 Carbon Dioxide 28 mmol/L (22-29) 10/20/22 19:05 Anion Gap 14.6 (5-19) 10/20/22 19:05 BUN 17 mg/dL (8-23) 10/20/22 19:05 Creatinine 1.0 mg/dL (0.5-0.9) H 10/20/22 19:05 GFR Calculation Not Reportable 10/20/22 19:05 Glucose 106 mg/dL (65-115) 10/20/22 19:05 Calculated Osmolality 294 mOsm/kg (285-295) 10/20/22 19:05 Lactic Acid 1.2 mmol/L (0.5-2.2) 10/20/22 19:05 Calcium 8.1 mg/dL (8.5-10.5) L 10/20/22 19:05 Magnesium 2.2 mg/dL (1.7-2.3) 10/20/22 19:05 Total Bilirubin 1.2 mg/dL (0.15-1.2) 10/20/22 19:05 AST 25 U/L (0-32) 10/20/22 19:05 ALT 22 U/L (0-33) 10/20/22 19:05 Alkaline Phosphatase 102 U/L (35-105) 10/20/22 19:05 Troponin T Baseline 11 ng/L (0-10) H 10/20/22 19:05 NT-Pro-B Natriuret Pep 1527 pg/mL (0-450) H 10/20/22 19:05 Total Protein 5.9 g/dL (6.6-8.7) L 10/20/22 19:05 Albumin 3.4 g/dL (3.5-5.2) L 10/20/22 19:05 Globulin 2.5 g/dL (1.3-4.6) 10/20/22 19:05 Procalcitonin 0.32 ng/mL (0-0.5) 10/20/22 19:05 SARS-CoV-2 Ag (Rapid) negative (Negative) 10/20/22 19:10 Discharge Plan Discharge Patient Disposition: Placed in Observation Clinical Impression: Congestive heart failure, Atrial fibrillation, Acute hypoxemic respiratory fail ure, Pleural effusion, bilateral Coding Level of Care Code ED Mrb Engineer for Graham Gutierres
--- NOTE | 2022-10-20 19:22 | ECG_ITS ---
[facility] Test Date: 2022-10-20 Pat Name: Laura Rodriguez Department: Room: Gender: Female Solution Strategist: : 1940 Requested By: Zev Balderrama Order Number: [id number] Valentino MD: Yimi Paz M.D. Measurements Intervals [place] Rate: 102 P: 0 PA: 0 QRS: 58 QRSD: 84 T: 25 QT: 331 QTc: 432 Interpretive Statements ATRIAL FIBRILLATION WITH RAPID VENTRICULAR RESPONSE LOW QRS VOLTAGE IN PRECORDIAL LEADS [QRS DEFLECTION < 1.0 mV IN CHEST LEADS] POSSIBLE ANTERIOR MYOCARDIAL INFARCTION , PROBABLY OLD [30 ms Q WAVE IN V3/V4, OR R < 0.2 mV IN V4] ABNORMAL RHYTHM ECG Compared to ECG 10/16/2022 11:29:24 No significant changes Electronically Signed On 10-20-2022 23:58:46 CDT by Yimi Paz M.D. [id number]
[2022-10-20 19:29] LABS: Basophils % 0.1 %; Eosinophils # 1.2 10^3/uL (0.0-0.8); Eosinophils % 10.7 %; Hematocrit 37.3 % (36-47); Lymphocytes # 1.4 10^3/uL (0.8-4.8); Lymphocytes % 12.3 %; Mean Corpuscular HGB Conc 30.6 g/dL (30-55); Mean Corpuscular Hemoglobin 25.9 pg (27-33); Mean Corpuscular Volume 84.8 fl (85-98); Mean Platelet Volume 9.7 fL (7.4-10.4); Monocytes # 1.1 10^3/uL (0.2-0.9); Monocytes % 9.6 %; Neutrophils # 7.74 10^3/uL (1.8-7.7); Neutrophils % 66.9 %; Nucleated Red Blood Cells % 0 %; Platelet Count 247 10^3/cmm (157-399); Red Cell Distribution Width 17.2 % (12.1-15.1); White Blood Count 11.58 10^3/uL (3.29-11.43)
[2022-10-20 19:37] VITALS: PULSE 97; RESP 22; O2SAT 99
[2022-10-20 19:44] LABS: Lactic Sepsis W/Reflex 1.2 mmol/L (0.5-2.2)
[2022-10-20 19:46] LABS: Troponin(5th) Baseline 11 ng/L (0-10)
[2022-10-20 19:55] LABS: NT Pro B Type Natriuretic Pept 1527 pg/mL (0-450); Procalcitonin 0.32 ng/mL (0-0.5)
[2022-10-20 19:57] LABS: SARS Covid-2 Antigen negative (Negative)
[2022-10-20 20:06] LABS: Alanine Aminotransferase 22 U/L (0-33); Albumin Level 3.4 g/dL (3.5-5.2); Alkaline Phosphatase 102 U/L (35-105); Anion Gap 14.6 (5-19); Aspartate Amino Transferase 25 U/L (0-32); Blood Urea Nitrogen 17 mg/dL (8-23); Calcium 8.1 mg/dL (8.5-10.5); Carbon Dioxide 28 mmol/L (22-29); Chloride 103 mmol/L (98-107); Globulin 2.5 g/dL (1.3-4.6); Glucose 106 mg/dL (65-115); Magnesium 2.2 mg/dL (1.7-2.3); Osmolality Calculated 294 mOsm/kg (285-295); Potassium 4.6 mmol/L (3.5-5.1); Sodium 141 mmol/L (136-145); Total Bilirubin 1.2 mg/dL (0.15-1.2); Total Protein 5.9 g/dL (6.6-8.7)
[2022-10-20] MEDS: FUROsemide 10 mg/mL SDV 4mL 40 MG IVP (20:19)
[2022-10-20] MEDS: bumetanide 0.25 mg/mL SDV 4 mL 1 MG IVP (20:19)
[2022-10-20 20:30] VITALS: PULSE 99; RESP 18; O2SAT 100
[2022-10-20] MEDS: albuterol 8 gm MDI 2 PUFF INHALATION (20:32)
--- NOTE | 2022-10-20 21:41 | CTR_ITS ---
PROCEDURE INFORMATION: Exam: CTA Chest With Contrast Exam date and time: 10/20/2022 9:57 PM Age: 82 years old Clinical indication: Abnormal findings; Abnormal radiologic exam of lung or chest; Dyspnea and tachypnea; Additional info: Abnormal cxr, dyspnea, tachycardia TECHNIQUE: Imaging protocol: Computed tomographic angiography of the chest with contrast. Exam focused on the arteries. 3D rendering (Not supervised by radiologist): MIP and/or 3D reconstructed images were created by the technologist. Radiation optimization: All CT scans at this facility use at least one of these dose optimization techniques: automated exposure control; mA and/or kV adjustment per patient size (includes targeted exams where dose is matched to clinical indication); or iterative reconstruction. Contrast material: OMNI 350; Contrast volume: 100 ml; Contrast route: INTRAVENOUS (IV); REPORTING DATA: Count of CT and Cardiac NM exams in prior 12 months: This patient has received 3 known CTs and 0 known cardiac nuclear medicine studies in the 12 months prior to the current study. COMPARISON: CT angio chest PE protcl [id number] 09/11/2020 4:22 PM RADIATION DOSE METRICS: Total DLP (mGy-cm): 871.51 FINDINGS: Limitations: Study is somewhat limited by patient respiratory motion. Pulmonary arteries: Allowing for motion related streak artifact no large or central pulmonary emboli are demonstrated. Peripheral branches in some areas are difficult to evaluate. Aorta: There is atherosclerotic calcification of the descending thoracic aorta. There is no thoracic aortic aneurysm or dissection. Lungs: There is compressive atelectasis of portions of both lower lobes. No focal consolidation is identified. Pleural spaces: There are small bilateral pleural effusions. Heart: The heart is moderately enlarged. There is reflux of contrast material into the IVC and hepatic veins which may indicate cardiac dysfunction. Coronary arteries: There is severe atherosclerotic calcification of the coronary arteries. Lymph nodes: There is some mildly prominent paratracheal lymph nodes measuring up to 7 x 8 mm in the AP window node measuring 11 x 24 mm and mildly prominent hilar lymph nodes measuring up to 11 x 16 mm on the right in 6 x 12 mm on the left but no significant adenopathy. Diaphragm: There is a small hiatal hernia. Gallbladder and bile ducts: Multiple calcified gallstones are present. Bones/joints: The thoracic spine demonstrates moderate degenerative changes at multiple levels. Soft tissues: Unremarkable. CT/CT angio chest PE protcl [id number] IMPRESSION: 1. Limited study due to patient respiratory motion. 2. No gross evidence of pulmonary embolism. 3. Bilateral pleural effusions and mild lower lobe atelectasis.
[2022-10-20 21:43] VITALS: BP 101/59; PULSE 99; RESP 25; O2SAT 97
--- NOTE | 2022-10-20 21:44 | PM.HP ---
Providers/Chief Complaint Admitting Physician: Mora Primary Care Provider: Jessica Fraser DO Chief Complaint: SOB History of Present Illness Laura Rodriguez is a 82 year old female who has history of atrial fibrillation myocardial infarction with CHF and obesity presents to emergency room for 4 days after prior visit. At that time she was diagnosed as having pneumonia and was placed on cefdinir and ofloxacin. Unfortunately the patient reports that she is not getting any better. She states her shortness of breath is worse and she is requiring oxygen 24 hours a day. She wears 4-1/2 L at night. She was told that she wears oxygen because of her atrial fibrillation. She states that she was tested for obstructive sleep apnea and was found not to meet criteria. In the ER the patient is hypoxic requiring 2 to 4 L nasal cannula. Her respiratory rate it remains elevated. Her chest x-ray reveals bilateral pleural effusions and pulmonary vascular congestion. Review of Systems Const: Denies: fever(s) or chills Eyes: Denies: change in vision ENMT: Denies: throat pain or nasal congestion Card: Denies: chest pain or palpitations Resp: Reports: dyspnea and productive cough (clear) GI: Denies: abdominal pain, nausea, vomiting or change in stool character : Denies: dysuria Musc: Denies: back pain or extremity pain Skin/Breast: Denies: rash or lesions Neuro: Denies: headache(s) or dizziness Psych: Denies: anxiety or depression Magen/Lymph: Denies: easy bruising or easy bleeding Medications/Allergies Home Medications Medication Instructions Recorded Confirmed Last Taken Type oxybutynin chloride 10 mg 10 mg PO QAM 03/04/22 10/16/22 10/16/22 History tablet,extended release 24 hr ezetimibe 10 mg tablet (Zetia) 10 mg PO DAILY #90 tabs 03/09/22 10/16/22 10/16/22 Rx atorvastatin 40 mg tablet 40 mg PO BEDTIME 05/18/22 10/16/22 10/15/22 History aspirin 81 mg tablet,delayed 81 mg PO QAM 08/04/22 10/16/22 10/16/22 History release clopidogrel 75 mg tablet 75 mg PO QAM 08/04/22 10/16/22 10/16/22 History furosemide 40 mg tablet (Lasix) 80 mg PO DAILY@15 0610/16/22 08/03/22 History metoprolol tartrate 50 mg tablet 50 mg PO BID 08/04/22 10/16/22 10/16/22 History potassium chloride 10 mEq 10 meq PO QAM 08/04/22 10/16/22 10/16/22 History tablet,extended release sacubitril 24 mg-valsartan 26 mg 1 tab PO BID 08/04/22 10/16/22 10/16/22 History tablet (Entresto) pantoprazole 40 mg tablet,delayed 40 mg PO BID #60 tabs 08/05/22 10/16/22 10/16/22 Rx release (Protonix) cefdinir 300 mg capsule 300 mg PO BID 10 days #20 caps 10/16/22 Unknown Rx gabapentin 100 mg capsule 100 mg PO BID 10/16/22 10/16/22 Unknown History levofloxacin 500 mg tablet 500 mg PO DAILY 10/16/22 10/16/22 Unknown History loratadine 10 mg tablet 10 mg PO DAILY PRN Allergic 10/16/22 10/16/22 Unknown History Symptoms nitrofurantoin 100 mg PO BID 10/16/22 10/16/22 Unknown History monohydrate/macrocrystals 100 mg capsule prednisone 20 mg tablet 20 mg PO DAILY 10/16/22 10/16/22 Unknown History sucralfate 100 mg/mL oral See Rx Instructions .Route .COMPLEX 10/16/22 10/16/22 Unknown History suspension Allergies Allergy/AdvReac Type Severity Reaction Status Date / Time codeine Allergy Unconscious Verified 10/20/22 17:57 rivaroxaban [From Xarelto] Allergy ADR-Gastrointestinal Verified 10/20/22 17:57 Upset PFSH Acute PFSH: Medical History Acne rosacea Atrial fibrillation BMI 37.0-37.9, adult CAD (coronary artery disease) 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) COVID-19 (08/2020) 0 Hypertension Impaired glucose tolerance Seasonal allergies ST elevation myocardial infarction (STEMI) (11/2021) Statin intolerance Systolic CHF with reduced left ventricular function, NYHA class 3 UGI bleed (04/2022) 04/2022 on xarelto at time, EGD with erosive gastritis, no active bleeding, but required transfusion 2 units for Hgb of 6.8 (from 11) Urinary incontinence Surgical History H/O coronary angiogram LAD stent November 2021 History of appendectomy Family History Brother Stroke Sister Stroke Father Stroke CAD (coronary artery disease) Mother Stroke Diabetes Social History Smoking and tobacco status: former smoker Quit status (tobacco): has quit using tobacco Former quit date comment: 50+ years ago, smoked only about 6 months Alcohol intake: never Substance/Drug Use: never Lives independently: Yes Vitals/I&O/Wt Last Vital Signs Temp 99.1 F 10/20/22 17:48 Pulse 99 10/20/22 20:30 Resp 18 10/20/22 20:30 BP 156/96 10/20/22 17:48 Pulse Ox 100 10/20/22 20:30 O2 Del Method Nasal Cannula 10/20/22 19:37 O2 Flow Rate 1.5 10/20/22 19:37 Weight last 48 hrs Weight 87.543 kg Physical Exam Narrative: 82-year-old white overweight female in mild distress at time of examination. Her respiratory rate is elevated in the 20s. Neurologic she is alert oriented to person place time and situation she is nonfocal to exam HEENT head is normocephalic atraumatic pupils equal round reactive to light and accommodation extra ocular muscles are intact there is no scleral icterus mucous membranes are moist and pink no lesions or exudates neck is supple no JVD carotid bruits or lymphadenopathy Is a symmetric with inspiration Cardiovascular heart sounds are distant. Slightly tachycardic appears regular Respiratory: Expiratory wheezes in the right lower lobe otherwise poor aeration. Abdomen: Obese soft nontender nondistended positive bowel sounds no hepatosplenomegaly Extremities for present no pitting edema present Skin: Warm and dry to touch no lesions or rash Lymphatic no supraclavicular axillary or inguinal lymphadenopathy noted Data 10/20/22 19:05 10/20/22 19:05 Micro: Microbiology 10/20/22 19:17 Blood Culture - Preliminary Blood SPECIMEN COLLECTED 10/20/22 19:05 Blood Culture - Preliminary Blood SPECIMEN COLLECTED CXR: My impression: Cardiomegaly versus poor inspiratory effort. Bilateral pleural effusions. Increased pulmonary vascular congestion Radiologist's impression: XR/XR chest 1V portable [id number] IMPRESSION: Bilateral small volume pleural effusions, with ill-defined opacities of the lung bases, most likely corresponding atelectasis. Increased interstitial lung markings suggestive of pulmonary edema. EKG 1: My Interpretation: Atrial fibrillation heart rate around 100. Normal QRS interval. Low voltage likely due to obesity. EKG computer-generated impression: ATRIAL FIBRILLATION WITH RAPID VENTRICULAR RESPONSE LOW QRS VOLTAGE IN PRECORDIAL LEADS? [QRS DEFLECTION < 1.0 mV IN CHEST LEADS] POSSIBLE ANTERIOR MYOCARDIAL INFARCTION , PROBABLY OLD [30 ms Q WAVE IN V3/V4, OR R < 0.2 mV IN V4] ABNORMAL RHYTHM ECG A&P Assessment and plan (1) Acute exacerbation of CHF (congestive heart failure): (2) Atrial fibrillation: (3) CAD (coronary artery disease): (4) History of upper gastrointestinal bleeding: (5) Acute hypoxemic respiratory failure: (6) Pleural effusion, bilateral: Plan Patient is being admitted for acute hypoxic respiratory failure most likely due to CHF exacerbation. She was treated for pneumonia on 825 and she continues to take these antibiotics. I will continue them in the hospital. Her white count has improved to 11.5 down from 15.3. And she is afebrile. She reports that she is consistent taking her Lasix 80 mg daily. She does not weigh herself daily. She overall feels that she has been losing weight based on how her close field. This is purposeful. I will change her diuretic therapy to Bumex. Will need to hold Entresto while in an acute exacerbation. As well as decrease her beta-avis. I noticed that patient is on prednisone will need to ask associated diagnosis which I do not see in the chart at this time. Attestations Medical Necessity Statement*: Patient requires hospitalization due to acute respiratory failure hypoxic in nature most likely secondary to CHF. Coding Level of Care Code Acute Code for g Fwd Diagnoses Acute exacerbation of CHF (congestive heart failure) I50.9 Atrial fibrillation I48.91 CAD (coronary artery disease) I25.10 History of upper gastrointestinal bleeding Z87.19 Acute hypoxemic respiratory failure J96.01 Pleural effusion, bilateral J90
[2022-10-20 21:49] LABS: Troponin 5 2HR 10.05 ng/L (0-10)
[2022-10-20 21:50] LABS: Troponin 5 2HR Delta -0.95 ABS# (0-10)
[2022-10-20] MEDS: iohexol 350 mg/mL 500 mL Btl (per mL) IV (22:10)
[2022-10-20 23:01] VITALS: BP 106/74; PULSE 106; RESP 16; O2SAT 97
[2022-10-20 23:42] VITALS: BP 116/83; PULSE 101; RESP 26; O2SAT 97
[2022-10-21] VITALS (10 sets, daily range): BP systolic 105–145; BP diastolic 59–79; PULSE 78–121; RESP 15–20; TEMP 36.4–36.8; O2SAT 93–98
[2022-10-21] MEDS: bumetanide 0.25 mg/mL SDV 4 mL 1 MG IVP (00:17)
[2022-10-21] MEDS: enoxaparin 40 mg/0.4 mL Syringe SUBCUT ×2 (00:17→23:43)
--- NOTE | 2022-10-21 00:54 | PC.NURSE ---
Patient unable to swallow potassium pills. Dr. Velazco notified. Liquid PO Potassium ordered.
[2022-10-21 01:04] LABS: Anion Gap 15.9 (5-19); Blood Urea Nitrogen 18 mg/dL (8-23); Calcium 8.2 mg/dL (8.5-10.5); Carbon Dioxide 25 mmol/L (22-29); Chloride 99 mmol/L (98-107); Glucose 198 mg/dL (65-115); Magnesium 1.9 mg/dL (1.7-2.3); Osmolality Calculated 289 mOsm/kg (285-295); Potassium 3.9 mmol/L (3.5-5.1); Sodium 136 mmol/L (136-145)
[2022-10-21] MEDS: potassium chloride oral liq 20 mEq/15 mL UDC 40 MEQ PO (01:04)
[2022-10-21 01:05] LABS: Troponin 5 6HR 11.15 ng/L (0-10)
[2022-10-21 01:05] LABS: Add Urine Microscopic? YES; Bilirubin Urine Neg (Negative); Blood Urine 2+ (Negative); Glucose Urine UA Norm (Normal); Ketones Urine Negative (Negative); Leukocyte Esterase Urine Negative (Negative); Nitrate Urine Negative (Negative); Protein Urine Neg (Negative); RBC Urine 0-4 /hpf (0-2); Specific Gravity, Urine 1.005 (1.005-1.030); Squamous Epithelial Cell Urine 0-4 /hpf (0-5); Urine Appearance Clear (CLEAR); Urine Color Colorless (Yellow); Urobilinogen Urine Neg (Negative); pH Urine 5 (5-7)
[2022-10-21 01:06] LABS: Add Urine Culture? No
[2022-10-21 01:11] LABS: Troponin 5 6HR Delta 0.15 ng/L (0-12)
--- NOTE | 2022-10-21 04:30 | PC.NURSE ---
Patient's heart rate 130s-140s when ambulating to bathroom. Patient's resting heart rate currently 102.
[2022-10-21] MEDS: bumetanide 0.25 mg/mL SDV 10 mL 2 MG IVP ×2 (09:35→20:54)
[2022-10-21] MEDS: lanolin oint 7 gm 1 APPLIC TOPICAL (11:49)
[2022-10-21] MEDS: metoprolol tartrate 50 mg Tablet 25 MG PO ×2 (11:49→17:06)
[2022-10-21] MEDS: levofloxacin-dextrose 5 % 750 MG/150 ML PREMIX 100 MG IV (18:06)
[2022-10-21] MEDS: atorvastatin 40 mg Tablet PO (20:11)
--- NOTE | 2022-10-21 20:12 | P.PN_ITS ---
Subjective Subjective: She overall feels that she is improving. Earlier today tells me that she had tested positive for COVID several days back on Wednesday. She had concerns about keeping the door closed, discussed with her isolation as a precaution given she has had symptoms of shortness of breath, she is in a double room by herself, and we did open the blinds in her room. However, on subsequent review I do not see any positive results, discussion with her she cannot tell me where she had heard about a positive result, but denies being tested anywhere else. Discussed on a second visit that COVID test was negative this admission as well as during prior visit on the and so isolation precautions are discontinued. Discussed with her also she had previously requested with her friend consideration of transfer to [facility], we had inquired and there are no beds available there. Discussed we can check tomorrow again if she would like us to, but declined stating that she will be going there soon anyhow for her appointments. She has been producing a good amount of urine. Precautions are Vitals/I&O/Wt Last Vital Signs Temp 97.7 F 10/21/22 19:39 Pulse 88 10/21/22 19:39 Resp 15 10/21/22 19:39 BP 125/72 10/21/22 19:39 Pulse Ox 98 10/21/22 19:39 O2 Del Method Nasal Cannula 10/21/22 19:39 O2 Flow Rate 2 10/21/22 19:39 10/21/22 10/21/22 10/21/22 06:59 14:59 22:59 Intake Total 1.28 / 1.28 120 / 120 390 / 510 Output Total 1050 / 1050 300 / 300 500 / 800 Balance -1048.72 / -1048.72 -180 / -180 -110 / -290 Weight last 48 hrs Weight 87.628 kg Weight 87.543 kg Physical Exam Const: COMMON NORMALS: patient oriented x3 and alert GENERAL APPEARANCE: cooperative ORIENTATION/CONSCIOUSNESS: Yes awake HENMT: COMMON NORMALS: oropharynx normal Neck/C-Spine: COMMON NORMALS: no JVD Resp: COMMON NORMALS: normal respiratory effort AUSCULTATION: diminished lung sounds Cardio: COMMON NORMALS: no JVD, regular rhythm, S1 normal heart sound present, S2 normal heart sound present and No murmurs present (Cardio) RHYTHM: regular rhythm HEART SOUNDS: S1 normal heart sound present and S2 normal heart sound present GI: COMMON NORMALS: Normal to inspection, nondistended, normoactive bowel sounds present, Soft to palpation and non-tender PALPATION: Yes Soft to palpation Extremity: COMMON NORMALS: no joint enlargement GENERAL: Yes edema (1+) Neuro: COMMON NORMALS: patient oriented x3 and moves all extremities SENSORIUM/ORIENTATION: Yes alert Skin: COMMON NORMALS: no rashes or lesions noted GENERAL SKIN EXAM: no rashes or lesions noted Data 10/20/22 19:05 10/21/22 00:32 Micro: Microbiology 10/20/22 19:17 Blood Culture - Preliminary Blood NEGATIVE TO DATE 10/20/22 19:05 Blood Culture - Preliminary Blood NEGATIVE TO DATE A&P Assessment and plan (1) Acute exacerbation of CHF (congestive heart failure): (2) Atrial fibrillation: (3) CAD (coronary artery disease): (4) History of upper gastrointestinal bleeding: (5) Acute hypoxemic respiratory failure: (6) Pleural effusion, bilateral: Plan Her oxygenation is improving. Improving respiratory failure. She is currently down to 2 L. She states at home she uses 2 L at night, although previously did need as much is 4 L. She is noted in negative balance, diuresing well so far. Continue Bumex for treatment of decompensated diastolic CHF. Discussed with her areas of atelectasis, but cannot exclude pneumonia on chest x-ray. Recently being treated for pneumonia. For now discussed for now continuing empiric antibiotic coverage with Levaquin, however, we will follow-up symptoms, will check procalcitonin. Add incentive spirometer. She overall feels that she has been losing weight based on how her close field. This is purposeful. Resumed some of her home medications. She is concerned why only some of her medications are resumed. Discussed with her that on reviewing her medications noted that her blood pressure has been soft, and concern has been that blood pressure not decreased further with resumption of some of her medications, as well as not to impede treatment with diuretics. She verbalized understanding and agreement. Attestations Medical Necessity Statement*: Continue admission for assessment management of decompensated CHF, improving respiratory failure. Diagnoses Acute exacerbation of CHF (congestive heart failure) I50.9 Atrial fibrillation I48.91 CAD (coronary artery disease) I25.10 History of upper gastrointestinal bleeding Z87.19 Acute hypoxemic respiratory failure J96.01 Pleural effusion, bilateral J90
[2022-10-22] VITALS (12 sets, daily range): BP systolic 101–133; BP diastolic 66–82; PULSE 81–116; RESP 15–18; TEMP 36.4–36.8; O2SAT 95–98
[2022-10-22] MEDS: clopidogrel 75 mg Tablet PO (05:29)
[2022-10-22 06:25] LABS: Basophils % 0.1 %; Eosinophils # 0.6 10^3/uL (0.0-0.8); Eosinophils % 2.8 %; Hematocrit 37.3 % (36-47); Lymphocytes # 3.5 10^3/uL (0.8-4.8); Lymphocytes % 16.9 %; Mean Corpuscular HGB Conc 30.8 g/dL (30-55); Mean Corpuscular Volume 84.2 fl (85-98); Mean Platelet Volume 9.3 fL (7.4-10.4); Monocytes # 1.2 10^3/uL (0.2-0.9); Neutrophils # 14.96 10^3/uL (1.8-7.7); Neutrophils % 73.3 %; Nucleated Red Blood Cells % 0 %; Platelet Count 309 10^3/cmm (157-399); Red Blood Count 4.43 10^6/uL (3.85-5.65); Red Cell Distribution Width 17.2 % (12.1-15.1); White Blood Count 20.41 10^3/uL (3.29-11.43)
[2022-10-22 07:08] LABS: Anion Gap 15.8 (5-19); Blood Urea Nitrogen 31 mg/dL (8-23); Calcium 8.7 mg/dL (8.5-10.5); Carbon Dioxide 28 mmol/L (22-29); Chloride 100 mmol/L (98-107); Creatinine Clr Calc Pharmacy 43.5967; Glucose 131 mg/dL (65-115); Osmolality Calculated 298 mOsm/kg (285-295); Potassium 3.8 mmol/L (3.5-5.1); Sodium 140 mmol/L (136-145)
[2022-10-22 07:09] LABS: Procalcitonin 0.24 ng/mL (0-0.5)
[2022-10-22] MEDS: ezetimibe 10 mg Tablet PO (08:51)
[2022-10-22] MEDS: metoprolol tartrate 50 mg Tablet 25 MG PO ×2 (08:51→17:11)
--- NOTE | 2022-10-22 11:05 | PC.CHAP ---
Pastoral Care Encounter/Spiritual Assessment Type of Contact [x] Declined supervisor detasseling crew visit [] Patient/Family/Request visit [] Outpatient visit [] Follow-up visit [] Physician referral [] Code/Alert [x] Routine visit [] Staff referral [] Actively dying [] Patient sleeping [] Family support [] [] Out of room [] Palliative care [] [] Receiving care in room [] Pre-surgical visit [] Trauma [] Long length of stay [] ICU visit [] Other: Relational/Emotional Strength [] Patient feels connected with others/family/visitors/staff [] Distress [] Loneliness/isolation [] Abandonment Spirituality of Patient [] Person of Michelle [] Attends Pentec[employer]al of their Michelle [] Believes in Prayer [] Reads Bible or Alevism materials [] There are Spiritual issues to be addressed Floor Finisher Helper Interventions [] Prayer [] Active listening [] Non-anxious presence [] Spiritual/emotional support [] Crisis/trauma care [] Spiritual counseling [] Bereavement support [] Provided bereavement packet [] Provided Bible/devotional materials [] Provided toy/stuffed animal, coloring book to patient or family member [] Provided Communion [] Anointing/Malo [] Salvation [] Completed spiritual assessment [] Other: Impact on Illness or Injury [] Angry [] Fearful [] Anxious [] Often cries [] Exhaustion [] Unable to work [] Unable to attend religion [] Unable to walk/stand [] Unable to read [] Unable to drive [] Unable to eat/drink [] Unable to sleep [] Unable to be with family [] Patient intubated [] Other: Summary Declined supervisor detasseling crew visit Time spent with patient 5 mins
[2022-10-22] MEDS: albumin 25 G/100 ML VIAL IV (12:11)
--- NOTE | 2022-10-22 19:28 | P.PN_ITS ---
Subjective Subjective: She feels overall she is improving. She is having productive cough, although does state that this has been an ongoing issue for her for a while. Discussed with her antibiotic treatment with Levaquin for possibility of pneumonia, although discussed procalcitonin is somewhat borderline 0.24. Discussed obtaining a sputum culture. Discussed also incentive spirometry and instructed on use. Discussed consideration of underlying chronic lung disease, possibly chronic following COVID several years back, as well as recommended consideration of pulmonary function test with her primary provider after she recovers from acute episode of illness to assess if any additional pulmonary contribution in addition to CHF. Discussed if she were not to be improving, additional consideration of a broader respiratory viral panel. Discussed acute kidney injury, holding diuretics today, with which she is a greeable, we will reassess renal function again tomorrow. Discussed dose of albumin today. She additionally requests to resume her gabapentin, discussed recently soft blood pressures, will review see how she does today, discussed due to concern in case of fluctuation of blood pressures (as currently visible) resuming at lower dose/or frequency to avoid hypotension, and/or discussed risk of accumulation with ISHAN. She requests to proceed with this course of action, starting at least gabapentin at night due to neuropathy making it very difficult for her. States that her blood pressures do run soft at home at times, down to 110s systolic. Vitals/I&O/Wt Last Vital Signs Temp 97.9 F 10/22/22 15:55 Pulse 116 H 10/22/22 15:55 Resp 18 10/22/22 15:55 BP 133/82 10/22/22 15:55 Pulse Ox 95 10/22/22 15:55 O2 Del Method Room Air 10/22/22 15:55 O2 Flow Rate 2 10/22/22 08:30 10/22/22 10/22/22 10/22/22 06:59 14:59 22:59 Intake Total 820 / 820 480 / 1300 Balance 820 / 820 480 / 1300 Weight last 48 hrs Weight 86.296 kg Weight 87.628 kg Physical Exam Narrative: Accompanied by a different friend. Const: COMMON NORMALS: patient oriented x3 and alert GENERAL APPEARANCE: cooperative ORIENTATION/CONSCIOUSNESS: Yes awake HENMT: COMMON NORMALS: oropharynx normal Neck/C-Spine: COMMON NORMALS: no JVD Resp: COMMON NORMALS: normal respiratory effort AUSCULTATION: diminished lung sounds Cardio: COMMON NORMALS: no JVD, regular rhythm, S1 normal heart sound present, S2 normal heart sound present and No murmurs present (Cardio) RHYTHM: regular rhythm HEART SOUNDS: S1 normal heart sound present and S2 normal heart sound present GI: COMMON NORMALS: Normal to inspection, nondistended, normoactive bowel sounds present, Soft to palpation and non-tender PALPATION: Yes Soft to palpation Extremity: COMMON NORMALS: no joint enlargement GENERAL: Yes edema (Trace) Neuro: COMMON NORMALS: patient oriented x3 and moves all extremities SENSORIUM/ORIENTATION: Yes alert Skin: COMMON NORMALS: no rashes or lesions noted GENERAL SKIN EXAM: no rashes or lesions noted Data 10/22/22 06:11 10/22/22 06:11 Micro: Microbiology 10/22/22 10:00 Legionella Urinary Antigen - Final Urine,Voided Bacterial Antigens - Final 10/20/22 19:17 Blood Culture - Preliminary Blood NEGATIVE TO DATE 10/20/22 19:05 Blood Culture - Preliminary Blood NEGATIVE TO DATE A&P Assessment and plan (1) Acute exacerbation of CHF (congestive heart failure): (2) Atrial fibrillation: (3) CAD (coronary artery disease): (4) History of upper gastrointestinal bleeding: (5) Acute hypoxemic respiratory failure: (6) Pleural effusion, bilateral: Plan Subjectively she is feeling she is improving. Oxygenation has been gradually showing improvement, has weaned down to 2 L, continue to attempt to wean further. However, discussed with her as above noted worsening renal function, discussed and she is agreeable to holding diuretics. Reassess renal function. Dose of albumin today. As discussed with her subsequently would benefit from follow-up with primary provider for arrangements for pulmonary function testing after improvement from acute illness. Additionally continue Levaquin for possibility of pneumonia, discussed procalcitonin, requesting urine bacterial antigens as well as requested sputum culture. Incentive spirometer. Reviewed CBC, noted leukocytosis. Reports recent treatment for pneumonia. Discussed with case management. Additionally she requests to restart gabapentin, discussed with her concern with restarting medication, she states that blood pressures frequently come down at home as well. This is not new. Discussed cautiously starting lower dose/frequency. Appears she is on 100 mg capsule, cannot be divided, she states starting at least at night. Will resume cautiously, monitor blood pressure. Noted blood pressure 133/82 although as discussed with her with fluctuation beforehand. She overall feels that she has been losing weight based on how her close field. This is purposeful. As discussed with her we resumed some of her home medications. She is concerned why only some of her medications are resumed. Discussed with her that on review ing her medications noted that her blood pressure has been soft, and concern has been that blood pressure not decreased further with resumption of some of her medications, as well as not to impede treatment with diuretics. She verbalized understanding and agreement. Discussed with case management. Attestations Medical Necessity Statement*: Continue admission for assessment management of decompensated CHF, ISHAN, possible pneumonia, improving respiratory failure. Diagnoses Acute exacerbation of CHF (congestive heart failure) I50.9 Atrial fibrillation I48.91 CAD (coronary artery disease) I25.10 History of upper gastrointestinal bleeding Z87.19 Acute hypoxemic respiratory failure J96.01 Pleural effusion, bilateral J90
[2022-10-22] MEDS: atorvastatin 40 mg Tablet PO (20:29)
[2022-10-22] MEDS: gabapentin 100 mg Capsule PO (20:29)
[2022-10-22] MEDS: enoxaparin 40 mg/0.4 mL Syringe SUBCUT (22:38)
[2022-10-23 03:28] VITALS: BP 128/78; PULSE 88; RESP 15; TEMP 36.7; O2SAT 95
[2022-10-23] MEDS: clopidogrel 75 mg Tablet PO (05:23)
[2022-10-23 06:00] VITALS: PULSE 85
[2022-10-23 06:20] LABS: Eosinophils # 0.7 10^3/uL (0.0-0.8); Eosinophils % 6.9 %; Hematocrit 34.5 % (36-47); Lymphocytes # 2.2 10^3/uL (0.8-4.8); Lymphocytes % 23.6 %; Mean Corpuscular Volume 83.7 fl (85-98); Mean Platelet Volume 9.2 fL (7.4-10.4); Monocytes # 0.8 10^3/uL (0.2-0.9); Neutrophils # 5.76 10^3/uL (1.8-7.7); Neutrophils % 60.9 %; Nucleated Red Blood Cells % 0 %; Platelet Count 297 10^3/cmm (157-399); Red Blood Count 4.12 10^6/uL (3.85-5.65); Red Cell Distribution Width 17.3 % (12.1-15.1); White Blood Count 9.46 10^3/uL (3.29-11.43)
[2022-10-23 06:45] LABS: Anion Gap 13.8 (5-19); Blood Urea Nitrogen 32 mg/dL (8-23); Calcium 8.6 mg/dL (8.5-10.5); Carbon Dioxide 28 mmol/L (22-29); Chloride 104 mmol/L (98-107); Glucose 129 mg/dL (65-115); Osmolality Calculated 303 mOsm/kg (285-295); Potassium 3.8 mmol/L (3.5-5.1); Sodium 142 mmol/L (136-145)
[2022-10-23 07:24] VITALS: BP 137/83; PULSE 102; RESP 19; TEMP 36.5; O2SAT 94
[2022-10-23] MEDS: metoprolol tartrate 50 mg Tablet 25 MG PO (08:29)
[2022-10-23] MEDS: ezetimibe 10 mg Tablet PO (08:29)
--- NOTE | 2022-10-23 10:34 | P.DS_ITS ---
Discharge Providers Date of Admission: 10/20/22 21:42 Date of Discharge: October 23, 2022 Attending Provider at Admission: Jethro Velazco DO Attending Provider at Discharge: Esau Mendoza Primary Care Provider: Jessica Fraser DO Diagnoses at Discharge Discharge Diagnosis (1) Acute exacerbation of CHF (congestive heart failure): Status: Acute (2) Atrial fibrillation: Status: Chronic (3) CAD (coronary artery disease): Status: Chronic (4) History of upper gastrointestinal bleeding: Status: Chronic (5) Acute hypoxemic respiratory failure: Status: Acute (6) Pleural effusion, bilateral: Status: Acute Reason for Visit Reason for Visit: SOB Brief History: Laura Rodriguez is a 82 year old female who has history of atrial fibrillation myocardial infarction with CHF and obesity presents to emergency room for 4 days after prior visit.? At that time she was diagnosed as having pneumonia and was placed on cefdinir and ofloxacin.? Unfortunately the patient reports that she is not getting any better.? She states her shortness of breath is worse and she is requiring oxygen 24 hours a day.? She wears 4-1/2 L at night.? She was told that she wears oxygen because of her atrial fibrillation.? She states that she was tested for obstructive sleep apnea and was found not to meet criteria. In the ER the patient is hypoxic requiring 2 to 4 L nasal cannula.? Her respiratory rate it remains elevated.? Her chest x-ray reveals bilateral pleural effusions and pulmonary vascular congestion. Blood pressure is noted with some fluctuation, at times coming down to low 100s systolic. Cautioned her to monitor blood pressures closely at home. Skip Entresto and gabapentin dose, possibly metoprolol in case blood pressure is soft. Please reassess blood pressures in office. Hospital Course Hospital Course She was treated for decompensated diastolic CHF, received diuresis with Bumex IV 2 mg, was in negative balance, however, did have worsening of kidney function with creatinine coming up to 1.4 on 10/22. Diuretic held, received albumin. So far edema has resolved. Appears to be euvolemic. Today creatinine came down to 1.2. At discharge Lasix switched to Bumex on as-needed basis in case of edema and/or weight gain per discussion with her. She additionally was empirically continued antibiotic for possible pneumonia, noted some bibasilar either infiltrates versus atelectasis, continue brief course of Levaquin as per discussion with her. Urine bacterial antigens were negative. Noted rapid COVID-19 testing negative both this admit and during recent visit 10/16. She denied any COVID symptoms. Was started on incentive spirometry. Oxygenation had overall improved, she weaned off initially 4 L of oxygen down to room air during the day. Continue oxygen at home as previously at nighttime. Once she recovers from acute condition, please refer for additional assessment by PFT to assess for component of chronic pulmonary disease contributing to her symptoms. Please reassess renal function. Physical Exam Const: COMMON NORMALS: patient oriented x3 and alert GENERAL APPEARANCE: cooperative ORIENTATION/CONSCIOUSNESS: Yes awake HENMT: COMMON NORMALS: oropharynx normal Neck/C-Spine: COMMON NORMALS: no JVD Resp: COMMON NORMALS: normal respiratory effort AUSCULTATION: diminished lung sounds Cardio: COMMON NORMALS: no JVD, regular rhythm, S1 normal heart sound present, S2 normal heart sound present and No murmurs present (Cardio) RHYTHM: regular rhythm HEART SOUNDS: S1 normal heart sound present and S2 normal heart sound present GI: COMMON NORMALS: Normal to inspection, nondistended, normoactive bowel sounds present, Soft to palpation and non-tender PALPATION: Yes Soft to palpation Extremity: COMMON NORMALS: no joint enlargement and no pedal edema Neuro: COMMON NORMALS: patient oriented x3 and moves all extremities SENSORIUM/ORIENTATION: Yes alert Skin: COMMON NORMALS: no rashes or lesions noted GENERAL SKIN EXAM: no rashes or lesions noted Discharge Data Studies Completed and Pending Completed Studies During Hospitalization Category Date Time Status CTA chest [CT angio chest PE protcl [id number]] Stat Cat Scan 10/20/22 21:41 Completed XR chest 1V portable [id number] Stat Exams 10/20/22 18:13 Completed Pending at discharge Category Date Time Status Blood Culture Stat Lab 10/20/22 19:17 Results Complete Blood Count w/Auto AM LABS Lab 10/24/22 04:00 Ordered Complete Blood Count w/Auto AM LABS Lab 10/25/22 04:00 Ordered Sputum Culture and Gram Stain Routine Lab 10/22/22 19:28 Uncollected Radiology Impressions Chest X-Ray 10/20/22 18:13 IMPRESSION: Bilateral small volume pleural effusions, with ill-defined opacities of the lung bases, most likely corresponding atelectasis. Increased interstitial lung markings suggestive of pulmonary edema. Chest CTA 10/20/22 21:41 IMPRESSION: 1. Limited study due to patient respiratory motion. 2. No gross evidence of pulmonary embolism. 3. Bilateral pleural effusions and mild lower lobe atelectasis. Laboratory Results WBC 9.46 10^3/uL (3.29-11.43) 10/23/22 06:06 RBC 4.12 10^6/uL (3.85-5.65) 10/23/22 06:06 Hgb 10.70 g/dL (11.27-16.99) L 10/23/22 06:06 Hct 34.5 % (36-47) L 10/23/22 06:06 MCV 83.7 fl (85-98) L 10/23/22 06:06 MCH 26.0 pg (27-33) L 10/23/22 06:06 MCHC 31.0 g/dL (30-55) 10/23/22 06:06 RDW 17.3 % (12.1-15.1) H 10/23/22 06:06 Plt Count 297 10^3/cmm (157-399) 10/23/22 06:06 MPV 9.2 fL (7.4-10.4) 10/23/22 06:06 Neut % (Auto) 60.9 % 10/23/22 06:06 Lymph % (Auto) 23.6 % 10/23/22 06:06 [place] % (Auto) 8.0 % 10/23/22 06:06 Eos % (Auto) 6.9 % 10/23/22 06:06 Baso % (Auto) 0.0 % 10/23/22 06:06 Neut # (Auto) 5.76 10^3/uL (1.8-7.7) 10/23/22 06:06 Lymph # (Auto) 2.2 10^3/uL (0.8-4.8) 10/23/22 06:06 [place] # (Auto) 0.8 10^3/uL (0.2-0.9) 10/23/22 06:06 Eos # (Auto) 0.7 10^3/uL (0.0-0.8) 10/23/22 06:06 Baso # (Auto) 0.0 10^3/uL (0.0-0.1) 10/23/22 06:06 Nucleated RBC % (auto) 0 % 10/23/22 06:06 Nucleated RBCs # 0.0 /100WBC 10/23/22 06:06 Sodium 142 mmol/L (136-145) 10/23/22 06:06 Potassium 3.8 mmol/L (3.5-5.1) 10/23/22 06:06 Chloride 104 mmol/L (98-107) 10/23/22 06:06 Carbon Dioxide 28 mmol/L (22-29) 10/23/22 06:06 Anion Gap 13.8 (5-19) 10/23/22 06:06 BUN 32 mg/dL (8-23) H 10/23/22 06:06 Creatinine 1.2 mg/dL (0.5-0.9) H 10/23/22 06:06 GFR Calculation Not Reportable 10/23/22 06:06 Glucose 129 mg/dL (65-115) H 10/23/22 06:06 Calculated Osmolality 303 mOsm/kg (285-295) H 10/23/22 06:06 Lactic Acid 1.2 mmol/L (0.5-2.2) 10/20/22 19:05 Calcium 8.6 mg/dL (8.5-10.5) 10/23/22 06:06 Magnesium 1.9 mg/dL (1.7-2.3) 10/21/22 00:32 Total Bilirubin 1.2 mg/dL (0.15-1.2) 10/20/22 19:05 AST 25 U/L (0-32) 10/20/22 19:05 ALT 22 U/L (0-33) 10/20/22 19:05 Alkaline Phosphatase 102 U/L (35-105) 10/20/22 19:05 Troponin T Baseline 11 ng/L (0-10) H 10/20/22 19:05 Troponin T 120 Minute 10.05 ng/L (0-10) H 10/20/22 21:25 Delta Troponin T -0.95 ABS# (0-10) L 10/20/22 21:25 Troponin T Hi Sens 6Hr 11.15 ng/L (0-10) H 10/21/22 00:32 Troponin T Hi Sens 6Hr Delta 0.15 ng/L (0-12) 10/21/22 00:32 NT-Pro-B Natriuret Pep 1527 pg/mL (0-450) H 10/20/22 19:05 Total Protein 5.9 g/dL (6.6-8.7) L 10/20/22 19:05 Albumin 3.4 g/dL (3.5-5.2) L 10/20/22 19:05 Globulin 2.5 g/dL (1.3-4.6) 10/20/22 19:05 Procalcitonin 0.24 ng/mL (0-0.5) 10/22/22 06:11 Urine Color Colorless (Yellow) 10/21/22 00:24 Urine Appearance Clear (CLEAR) 10/21/22 00:24 Urine pH 5 (5-7) 10/21/22 00:24 Ur Specific [place] 1.005 (1.005-1.030) 10/21/22 00:24 Urine Protein Neg (Negative) 10/21/22 00:24 Urine Glucose (UA) Norm (Normal) 10/21/22 00:24 Urine Ketones Negative (Negative) 10/21/22 00:24 Urine Blood 2+ (Negative) H 10/21/22 00:24 Urine Nitrate Negative (Negative) 10/21/22 00:24 Urine Bilirubin Neg (Negative) 10/21/22 00:24 Urine Urobilinogen Neg mg/dL (Negative) 10/21/22 00:24 Ur Leukocyte Esterase Negative (Negative) 10/21/22 00:24 Urine RBC 0-4 /hpf (0-2) H 10/21/22 00:24 Urine WBC None /hpf (0-5) 10/21/22 00:24 Ur Squamous Epith Cells 0-4 /hpf (0-5) H 10/21/22 00:24 Amorphous Sediment Not Reportable 10/21/22 00:24 Urine Bacteria None /hpf (NONE) 10/21/22 00:24 SARS-CoV-2 Ag (Rapid) negative (Negative) 10/20/22 19:10 Vitals Last Vital Signs Temp 97.7 F 10/23/22 07:24 Pulse 102 H 10/23/22 07:24 Resp 19 H 10/23/22 07:24 BP 137/83 10/23/22 07:24 Pulse Ox 94 10/23/22 07:24 O2 Del Method Room Air 10/23/22 07:24 O2 Flow Rate 2 10/22/22 08:30 Discharge Plan Discharge Patient Disposition: Home Condition: Stable Prescriptions: New bumetanide 2 mg tablet 2 mg PO DAILY PRN (Reason: Edema or weight gain) Qty: 90 0RF levofloxacin 750 mg tablet 750 mg PO Q24H 4 Days Qty: 4 0RF Continued ezetimibe [Zetia] 10 mg tablet 10 mg PO DAILY Qty: 90 3RF oxybutynin chloride 10 mg tablet extended release 24hr 10 mg PO QAM atorvastatin 40 mg tablet 40 mg PO BEDTIME potassium chloride 10 mEq tablet extended release 10 meq PO QAM Entresto 24-26 mg tablet 1 tab PO BID clopidogrel 75 mg tablet 75 mg PO QAM metoprolol tartrate 50 mg tablet 50 mg PO BID pantoprazole [Protonix] 40 mg tablet,delayed release (DR/EC) 40 mg PO BID Qty: 60 0RF Rx Instructions: Twice daily for 4 weeks and then daily sucralfate 100 mg/mL suspension See Rx Instructions .ROUTE .COMPLEX Rx Instructions: 10 ML ORALLY 4 TIME DAILY FOR 4 WEEKS, THEN 10 ML TWICE DAILY FOR 4 WEEKS. gabapentin 100 mg capsule 100 mg PO BID loratadine 10 mg Tablet 10 mg PO DAILY PRN (Reason: Allergic Symptoms) Discontinued furosemide [Lasix] 40 mg tablet 80 mg PO DAILY@15 cefdinir 300 mg capsule 300 mg PO BID 10 Days Qty: 20 0RF Discharge Orders: Discharge Order (Routine); Ordered 10/23/22 Ordered By: Esau Mendoza Referrals: Jessica Fraser DO [Primary Care Provider] - 10/27/22 11:00 am Patient Instructions: COPD, Bumetanide (By mouth) (Bumex), Levofloxacin (By injection) (Levaquin, Levofloxacina), Heart Failure (ED), Acute Kidney Injury (GEN), Hypotension (GEN), CHF Stoplight, COPD Stoplight, Opioid Safety Activity Restrictions/Additional Instructions: Complete antibiotic course for possible pneumonia. Continue diuretic at this time as needed in case of worsening edema or gaining more than 3 pounds in 2 days (water weight). Continue incentive spirometer at home. Discussed with your primary provider regarding referral for pulmonary function testing after you recover from acute illness. Your creatinine was found elevated up to 1.4 yesterday with kidney dysfunction, today it is improving down to 1.2. Please have your primary provider follow-up kidney function. Avoid any NSAIDs. Monitor blood pressures at home, avoid low blood pressures. Do not take Entresto and gabapentin and decrease metoprolol in half in case your blood pressure is less than 100 stop number or less than 60 bottom number. Do not take metoprolol either if you are blood pressure is less than 90 top number or 50 bottom number, or heart rate is less than 70. Discharge Attestations Time Spent in Discharge Care*: greater than 30 min Status at Discharge: Cognitive status at discharge: cognitively intact , Behavioral status at discharge: cooperative , Quality Metrics Clinical Quality Measures [ No reported AMI, CVA or VTE this stay] Coding Level of Care Code 17963 Total time (in minutes) for Discharge: 45 Diagnoses Acute exacerbation of CHF (congestive heart failure) I50.9 Atrial fibrillation I48.91 CAD (coronary artery disease) I25.10 History of upper gastrointestinal bleeding Z87.19 Acute hypoxemic respiratory failure J96.01 Pleural effusion, bilateral J90
[2022-10-23 10:57] VITALS: BP 138/79; PULSE 86; RESP 19; TEMP 36.4; O2SAT 95
--- NOTE | 2022-10-23 11:10 | PC.SOCIAL ---
Pg 2 IMM Explained to pt Pg 2 IMM. No questions voiced. Provided pt a copy. Initialed, dated, & timed a copy & placed in chart.
--- NOTE | 2022-10-23 11:16 | PC.NURSE ---
patient verbalized understanding of discharge instructions, home medications, follow up appointments, and stoplights.
[2022-10-23 11:25] VITALS: BP 138/79; PULSE 86; RESP 19; TEMP 36.4; O2SAT 95
== END 2022-10-23 11:26 | disposition home or self-care (01) | DRG 291 ==
LOC: ER 22:03 → MEDSURG 23:13
PROVIDERS: Admitting Provider Internal Medicine; Emergency Provider Emergency Medicine; PCP Family Medicine; Visit Provider Internal Medicine
DX: I11.0 Hypertensive heart disease with heart failure (principal); I50.33 Acute on chronic diastolic (congestive) heart failure; J18.9 Pneumonia, unspecified organism; J96.01 Acute respiratory failure with hypoxia; N17.9 Acute kidney failure, unspecified; I48.91 Unspecified atrial fibrillation; I25.10 Atherosclerotic heart disease of native coronary artery without angina pectoris; Z95.5 Presence of coronary angioplasty implant and graft; I25.2 Old myocardial infarction; E66.9 Obesity, unspecified; Z68.39 Body mass index [BMI] 39.0-39.9, adult; Z99.81 Dependence on supplemental oxygen; Z79.02 Long term (current) use of antithrombotics/antiplatelets; Z86.73 Personal history of transient ischemic attack (TIA), and cerebral infarction without residual deficits; Z86.16 Personal history of COVID-19; Z87.891 Personal history of nicotine dependence
CPT/HCPCS: 36415; 71045; 71275; 80048; 80053; 81001; 83605; 83735; 83880; 84145; 84484; 85025; 86403; 87040; 87426; 87449; 93005; 94640; 94760; 96372; 96374; 96375; 99285; J1650; J1940; J1956; J2930; J3490; J3535; P9047; Q9967